=== PATIENT | male | born 1970 | race Caucasian/White ===

== ENCOUNTER 2025-01-14 07:13 | Observation (INO) | payer OTHER, SELFPAY ==
[2025-01-14] VITALS (19 sets, daily range): BP systolic 125–167; BP diastolic 78–110; PULSE 90–146; RESP 13–30; TEMP 36.8–37.2; O2SAT 89–98; BMI 29.5
--- NOTE | 2025-01-14 07:17 | ECG_ITS ---
APPROVED REPORT Exam: Resting ECG HR:108 bpm ECG Measurements Heart Rate 108 AXES WA 161 P 64 QRSd 105 QRS 13 QT 342 T 269 QTc 405 Conclusion SINUS TACHYCARDIA Normal axis, normal intervals, no noted ST elevation, LVH pattern noted in septal leads. Electronically signed by : Stoney Robbins, 01/14/2025 14:11:35
--- NOTE | 2025-01-14 07:20 | PC.NURSE ---
Dr Robbins at bedside
--- NOTE | 2025-01-14 07:20 | XR_ITS ---
PROCEDURE INFORMATION: Exam: XR Chest Exam date and time: 01/14/2025 7:23 AM Age: 54 years old Clinical indication: Pain; Shortness of breath; Other: Cp; Additional info: Cp--pleuritic description TECHNIQUE: Imaging protocol: Radiologic exam of the chest. Views: 2 views. COMPARISON: No relevant prior studies available. FINDINGS: Lungs: Unremarkable. No consolidation. Pleural spaces: Unremarkable. No pleural effusion. No pneumothorax. Heart/Mediastinum: Unremarkable. No cardiomegaly. Bones/joints: Unremarkable. IMPRESSION: No acute findings.
--- NOTE | 2025-01-14 07:25 | ED_ITS ---
Discharge Plan Disposition Patient Disposition: Admitted Condition: Fair Clinical Impressions Clinical Impression: Chest pain, ETOH abuse, Hyponatremia, Hypomagnesemia, Cirrhosis, Emphysema lung, Tracheal nodule, Pleural effusion, Heart failure Discharge ED Provider: Stoney Robbins [facility] General Chief Complaint: Chest Pain Stated Complaint: chest pain/shakes Time Seen by Provider: 01/14/25 07:19 History of Present Illness HPI narrative: 54-year-old male who denies significant past medical history, presents via EMS from home for chest pain that started at 3 AM this morning. Patient describes the pain as being a burning across his chest whenever he takes a deep breath. Has had a cough recently. Pain does not radiate into his back. Pain is described as less than a 5 out of 10. EMS twelve-lead without ST elevation, patient was given 324 aspirin, 0.4 nitro. Patient continues to have chest pain on deep inspiration however pain not present whenever not taking deep breaths. Patient further states he is also had some swelling in both of his legs for the last few weeks which is described as symmetrical. Does not take any medications. Patient also drinks 12-24 beers daily. Last drink approximately 13 hours ago. Patient tremulous and tachycardic on arrival. Please note that above description of symptoms, in this electronic medical record under categorization of recalled from ER triage doctor by RN are reflective of an initial nursing assessment, however, is not reflective of my full history and physical exam that was personally taken and clarified. Consequentially, this preceding description of symptoms, which may include the patient's categorized chief complaint in the EMR, do not reflect my personal clinical impression, and the ultimate description of history of present illness and patient stated complaints should be deferred to this section of the note. Unless stated otherwise or congruent with this section of the note, additional signs, symptoms, or incongruence should be interpreted as inaccurate with my clinical impression. Related Data Home Medications ?Medication ?Instructions ?Recorded ?Confirmed No Known Home Medications 01/14/25 01/14/25 Allergies Allergy/AdvReac Type Severity Reaction Status Date / Time No Known Allergies Allergy Verified 01/14/25 07:30 [facility] Disclaimer: The information contained in this section may have been updated after the patient was seen, as this information can be updated by other users. Social History Smoking Status: Current every day smoker alcohol intake: current current occupational status: other Travel in the last 8 weeks?: None ROS Obtained: Yes Systems reviewed as appropriate & no additional complaints except as documented Physical Exam General General appearance: alert and in no apparent distress Comment: Nontoxic-appearing Head Head exam: atraumatic, normocephalic and normal inspection Eye Eye exam: Present normal appearance, PERRL and EOMI ENT ENT exam: Present normal exam, normal oropharynx, mucous membranes moist and normal external ear exam Neck Neck exam: Present normal inspection, full ROM and trachea midline Chest Chest inspection: Present normal inspection and symmetric chest wall rise; Absent tenderness Respiratory Respiratory exam: Present normal lung sounds bilaterally; Absent respiratory distress, stridor or accessory muscle use Cardiovascular Cardiovascular exam: Present normal rhythm, tachycardia and normal heart sounds; Absent JVD Abdominal Exam Abdominal exam: Present soft and normal bowel sounds; Absent distention, tenderness, guarding, rebound or rigidity Extremities Exam Extremities exam: Present normal inspection, full ROM, normal capillary refill and edema (Mild pitting edema bilaterally distal anterior reis); Absent calf tenderness Back Exam Back exam: Present normal inspection; Absent tenderness Neurological Exam Neurological exam: Present alert, oriented X3 and other (Tremulous on extension of bilateral arms) Psychiatric Psychiatric exam: Present normal affect and normal mood Skin Skin exam: Present warm, dry, intact and normal color Lymphatic Lymphatic Findings: no adenopathy HEART Score HEART Score HEART Score assessment performed?: Yes History (anamnesis): Slightly suspicious ECG: Non-specific disturbance Age: 45-65 years Risk factors: 1-2 risk factors Troponin: 1-3x normal limit HEART Score: 4 Critical Care Critical Care Time Critical Care Time: Yes Attestation: On 01/14/25, the high probability of a clinically significant, sudden or life threatening deterioration of the following system(s) required my full and direct attention, intervention and personal management. The time I documented below is in addition to time spent performing reported procedures but includes the following listed in this critical care notation. Total Time Total Critical Care Time: 35 Medical Decision Making Medical Records Medical records reviewed: Yes I reviewed the patient's medical records. Jonas Inquiry Pt receiving controlled substance: No Jonas was queried for this patient: No Vital Signs Vital Signs: 01/14/25 07:30 01/14/25 07:30 01/14/25 08:00 Temperature 98.2 F Temperature Source Oral Pulse Rate 107 H 104 H Pulse Rate [Left Radial] 105 H Respiratory Rate 20 13 17 Blood Pressure 160/104 H 146/99 H Blood Pressure [Right Arm] 167/110 H Blood Pressure Mean [Right Arm] 129 02 Sat by Pulse Oximetry 90 L 95 95 Oxygen Delivery Method Room Air Nasal Cannula Nasal Cannula Oxygen Flow Rate (LPM) 2 2 01/14/25 08:30 01/14/25 09:00 01/14/25 09:30 Temperature Temperature Source Pulse Rate 101 H 104 H 109 H Pulse Rate [Left Radial] Respiratory Rate 14 21 21 Blood Pressure 148/107 H 140/101 H 159/98 H Blood Pressure [Right Arm] Blood Pressure Mean [Right Arm] 02 Sat by Pulse Oximetry 95 96 95 Oxygen Delivery Method Nasal Cannula Nasal Cannula Nasal Cannula Oxygen Flow Rate (LPM) 2 2 2 01/14/25 10:00 01/14/25 10:05 01/14/25 10:30 Temperature Temperature Source Pulse Rate 108 H 102 H 104 H Pulse Rate [Left Radial] Respiratory Rate 14 17 Blood Pressure 145/98 H 151/95 H Blood Pressure [Right Arm] Blood Pressure Mean [Right Arm] 02 Sat by Pulse Oximetry 97 96 Oxygen Delivery Method Nasal Cannula Nasal Cannula Oxygen Flow Rate (LPM) 2 2 01/14/25 11:00 01/14/25 11:30 Temperature Temperature Source Pulse Rate 103 H 105 H Pulse Rate [Left Radial] Respiratory Rate 30 H 18 Blood Pressure 153/105 H 154/109 H Blood Pressure [Right Arm] Blood Pressure Mean [Right Arm] 02 Sat by Pulse Oximetry 96 95 Oxygen Delivery Method Nasal Cannula Nasal Cannula Oxygen Flow Rate (LPM) 2 2 Lab Data Labs: Lab Results 01/14/25 07:19: WBC 10.6, RBC 4.82, Hgb 16.5, Hct 45.0, MCV 93.4, MCH 34.2 H, M CHC 36.7 H, RDW 12.1, Plt Count 162, MPV 10.9 H, Neut % (Auto) 80.6 H, Lymph % (Auto) 9.7 L, Lyman % (Auto) 8.3, Eos % (Auto) 0.5, Baso % (Auto) 0.4, Neut # (Auto) 8.5 H, Lymph # (Auto) 1.0, Lyman # (Auto) 0.9, Eos # (Auto) 0.1, Baso # (Auto) 0.0, Sodium 119 L, Potassium 4.9, Chloride 90 L, Carbon Dioxide 26, Anion Gap 7.9, BUN 3 L, Creatinine 0.50 L, Estimated Creat Clear 222, Estimated GFR 175, Est GFR ( Amer) 211, Glucose 130 H, Calcium 8.5, Magnesium 1.3 L, T otal Bilirubin 2.4 H, AST 61 H, ALT 48, Alkaline Phosphatase 66, Troponin I 0.07 H, NT-Pro-B Natriuret Pep 3300 H, Total Protein 6.4, Albumin 3.7, Globulin 2.7, Albumin/Globulin Ratio 1.4 01/14/25 07:20: D-Dimer 2.97 H 01/14/25 09:29: Urine Color Yellow, Urine Appearance Clear, Urine pH 6.5, Ur Specific Free Soil <= 1.005, Urine Protein 1+ A, Urine Glucose (UA) Negative, Urine Ketones Negative, Urine Blood Negative, Urine Nitrate Negative, Urine Bilirubin Negative, Urine Urobilinogen 0.2, Ur Leukocyte Esterase Negative, Urine RBC None, Urine WBC Occasional, Ur Squamous Epith Cells Occasional, Urine Bacteria None 01/14/25 10:17: Troponin I 0.07 H 01/14/25 07:19 01/14/25 07:19 Response Orders (Tests/Meds): ED MEDICATIONS Generic Name Dose Route Start Last Admin Trade Name Freq PRN Reason Stop Dose Admin Diazepam 10 mg 01/14/25 07:19 Diazepam 10mg/2ml Syringe IV 02/13/25 07:18 Q1HP PRN CIWA >16 Diazepam 5 mg 01/14/25 07:19 01/14/25 12:07 Diazepam 10mg/2ml Syringe IV 02/13/25 07:18 5 mg Q1HP PRN Administration CIWA Score 8-15 Diazepam 5 mg 01/14/25 07:19 Diazepam 5mg Tablet PO 02/13/25 07:18 Q6HP PRN CIWA 2-7 Folic Acid 1 mg 01/14/25 09:00 01/14/25 07:59 Folic Acid 1mg Tablet PO 02/13/25 08:59 Not Given DAILY ANTONIO Multivitamins 10 ml/ Thiamine 1,015 mls @ 150 mls/hr 01/14/25 07:45 01/14/25 07:52 HCl 100 mg/ Magnesium Sulfate IV 01/14/25 14:30 150 mls/hr 2 gm/ Lactated Ringer's .[id number] ANTONIO Administration Multivitamins 1 each 01/14/25 17:00 Multivitamin Tablet PO 02/13/25 16:59 1700 ANTONIO Thiamine HCl 100 mg 01/15/25 09:00 Thiamine 100mg Tablet PO 01/17/25 09:01 DAILY ANTONIO Discontinued Medications Generic Name Dose Route Start Last Admin Trade Name Freq PRN Reason Stop Dose Admin Furosemide 80 mg 01/14/25 12:10 01/14/25 12:14 Furosemide 40mg/4ml Vial IV 01/14/25 12:11 80 mg ONCE ONE Administration Thiamine HCl 100 mg/ Sodium 51 mls @ 204 mls/hr 01/14/25 12:15 Chloride IV 01/14/25 12:16 ONCE ONE Iopamidol 70 ml 01/14/25 09:29 01/14/25 09:31 Iopamidol-370 (76%);100ml Bottle IV 01/14/25 09:30 70 ml ONCE ONE Administration Nicotine 21 mg 01/14/25 08:29 01/14/25 08:40 Nicotine 21mg/24hr Patch TD 01/14/25 08:30 21 mg ONCE ONE Administration Phenobarbital Sodium 130 mg 01/14/25 12:13 Phenobarbital Sod 65mg/Ml Inj IV 01/14/25 12:14 ONCE ONE Sodium Chloride 10 ml 01/14/25 09:29 01/14/25 09:31 Sodium Chloride 0.9% 10ml Syr (Rad Only) IV 01/14/25 09:30 10 ml ONCE ONE Administration Sodium Chloride 50 ml 01/14/25 09:29 01/14/25 09:30 0.9 % Sodium Chloride 50 Ml Vial IV 01/14/25 09:30 50 ml ONCE ONE Administration ORDERS Category Date Time Status CTA Chest [CT angio chest PE protocol] Stat Cat Scan 01/14/25 08:58 Completed Consult [employer] [CONS] Routine Cons 01/14/25 12:08 Active XR chest 2V Stat Exams 01/14/25 07:20 Completed Activated Partial Thrombo Time Routine Lab 01/14/25 12:13 Ordered Complete Blood Count Auto Diff AMLAB Lab 01/15/25 06:00 Ordered Complete Blood Count Auto Diff Stat Lab 01/14/25 07:19 Completed Comprehensive Metabolic Panel AMLAB Lab 01/15/25 06:00 Ordered Comprehensive Metabolic Panel Stat Lab 01/14/25 07:19 Completed D-Dimer Stat Lab 01/14/25 07:20 Completed Drug Screen,Urine Routine Lab 01/14/25 12:13 Ordered Magnesium AMLAB Lab 01/15/25 06:00 Ordered Magnesium Routine Lab 01/14/25 07:19 Completed NT Pro Brain Natriuretic Pep. Stat Lab 01/14/25 07:19 Completed Phosphorous Routine Lab 01/14/25 12:13 Ordered Prothrombin Time INR Routine Lab 01/14/25 12:13 Ordered Troponin I Q3H Lab 01/14/25 10:17 Completed Troponin I Q3H Lab 01/14/25 13:30 Ordered Troponin I Stat Lab 01/14/25 07:19 Completed UA [Urinalysis and Microscopic] Stat Lab 01/14/25 09:29 Completed ECG Data Tracing #1: Attestation: I reviewed this ECG and interpreted as documented below: ECG Narrative: Sinus tachycardia, normal axis, normal intervals, no noted ST elevation, LVH pattern noted in septal leads. ECG compared to prior tracings: there are no prior tracings available for comparison MDM Narrative Medical Decision Narrative: Patient with history and exam per above presenting for evaluation of chest pain, through discussion pain occurs whenever patient takes deep inspiration feels like a burning across his chest. Does not go into his back. Arrives tachycardic, tremulous, afebrile. Oxygen saturation low 90s on arrival. Physical exam as above. Patient drinks 12-24 beers daily with last drink approximately 13 hours prior to arrival. Diagnoses considered include ACS, pleuritis, upper respiratory virus, pneumonia, alcohol withdrawal, electrolyte abnormality, among others ED workup and treatment included: As above. EKG as above, sinus tachycardia without findings of ischemia. Labs were independently interpreted by me, significant for no noted leukocytosis anemia or thrombocytopenia. Patient is hyponatremic with sodium level 119, suspect this to be due to beer potomania given patient's consumption of 12-24 beers daily. Patient does not remember a significant period of sobriety, banana bag will help with sodium levels. Patient is hypochloremic, potassium within normal limits. Hyperbilirubinemia noted with bilirubin 2.4. Hypomagnesemia, will be repleted with banana bag. Mild elevation of AST, ALT and alkaline phosphatase within normal limits. proBNP elevated at 3300, no prior records available for baseline estimation. Initial troponin 0.07, repeat pending. D- dimer 2.97 CTA PE protocol ordered to evaluate for potential pulmonary embolism. Repeat troponin with flat delta, Reassuring against ACS. Imaging was independently visualized and interpreted by me, significant for no acute cardiopulmonary process noted on chest x-ray. CTA PE protocol with no noted pulmonary embolism, no noted aneurysm or dissection on my review, patient has emphysematous changes, pathologic node anterior to trachea, perihilar adenopathy, small bilateral pleural effusions, findings of cirrhosis on liver, gallstones noted in gallbladder. Please refer to radiology report for full details. My clinical impression at this time is most consistent with acute EtOH withdrawal, heart failure, elevated BNP, hyponatremia secondary to beer potomania, hypomagnesemia, new diagnosis of liver cirrhosis, emphysema, pulmonary nodule, pleural effusion, cholelithiasis. Patient was given benzodiazepine per [facility] protocol with improvement in tremors. Required a repeat dose. Patient initially very hesitant to be admitted to hospital and was wanting to sign out AGAINST MEDICAL ADVICE however after further discussion with patient and his family patient agreeable to admission. Informed patient of all labs and radiographic findings. Impressed the importance of follow-up regarding nodule as well as other findings today. Discussed patient with Dr. Mcrae with hospital medicine who agreed with admission. Patient admitted to hospital medicine with hemodynamically stable condition. Please see service notes for further details and management I discussed my clinical impression with patient and answered all questions. At this time, the evidence for any other entities in the differential is insufficient to warrant any further testing or ED observation. This was explained to the patient. The patient was advised that persistent or worsening symptoms require further evaluation.
[2025-01-14 07:34] LABS: Basophils % 0.4 % (0.1-2.0); Eosinophils # 0.1 Kmm3 (0.0-0.4); Eosinophils % 0.5 % (0.1-12.0); Hemoglobin 16.5 g/dL (14.1-18.0); Lymphocytes % 9.7 % (10-50); Mean Corpuscular HGB Conc 36.7 g/dL (31.8-35.4); Mean Corpuscular Hemoglobin 34.2 pg (27.0-31.2); Mean Corpuscular Volume 93.4 fl (80-94); Mean Platelet Volume 10.9 fl (7.4-10.4); Monocytes # 0.9 K/mm3 (0.1-1.0); Monocytes % 8.3 % (1.7-9.3); Neutrophils # 8.5 K/mm3 (1.8-7.8); Neutrophils % 80.6 % (37.0-80.0); Nucleated Red Blood Cells # 0 10^3/uL; Nucleated Red Blood Cells % 0 %; Platelet Count 162 K/mm3 (142-424); Red Blood Count 4.82 M/mm3 (4.60-6.20); Red Cell Distribution Width 12.1 % (11.5-17.5); Red Cell Distribution Width-SD 42.2 fL; White Blood Count 10.6 K/mm3 (4.8-10.8)
--- NOTE | 2025-01-14 07:40 | PC.NURSE ---
pt's daughter and at bedside
[2025-01-14] MEDS: diazePAM 10MG/2ML SYRINGE 5 MG IV ×2 (07:43→12:07)
[2025-01-14] MEDS: MVI, ADULT NO.1 WITH VIT K 10 ML, THIAMINE HCL 100 MG, MAGNESIUM SULFATE 2 GM in LACTAT... 150 ML IV (07:52)
[2025-01-14] MEDS: FOLIC ACID 1MG TABLET 1 MG PO (07:58)
[2025-01-14 08:03] LABS: Albumin Level 3.7 g/dl (3.5-5.0); Chloride 90 mmol/L (98-107); Potassium 4.9 mmoL/L (3.5-5.1); Sodium 119 mmol/L (136-145)
[2025-01-14 08:06] LABS: Alanine Aminotransferase 48 U/L (12-78); Albumin/Globulin Ratio 1.4 (1.1-1.8); Alkaline Phosphatase 66 U/L (38-126); Anion Gap 7.9 mEq/L (5-15); Aspartate Amino Transferase 61 U/L (17-59); Bilirubin,Total 2.4 mg/dl (0.2-1.3); Blood Urea Nitrogen 3 mg/dl (9-20); Calcium 8.5 mg/dl (8.4-10.2); Carbon Dioxide 26 mmol/L (22.0-30.0); Creatinine Clearance Estimated 222 mL/min (50-200); Estimated Glomerular Filt Rate 175 ml/min (>60); GFR (African American) 211 ML/MIN (>60); Globulin 2.7 g/dL (1.3-3.2); Glucose 130 mg/dl (74-100); Total Protein,Serum 6.4 g/dl (6.3-8.2)
[2025-01-14 08:16] LABS: NT Pro Brain Natriuretic Pep. 3300 pg/mL (0-125)
[2025-01-14 08:18] LABS: Troponin I 0.07 ng/ml (0.00-0.034)
[2025-01-14 08:28] LABS: Magnesium 1.3 mg/dl (1.6-2.3)
[2025-01-14 08:31] LABS: D-Dimer 2.97 ug/mL (0.0-0.5)
[2025-01-14] MEDS: NICOTINE 21MG/24HR PATCH 21 MG TD (08:40)
--- NOTE | 2025-01-14 08:58 | CT_ITS ---
PROCEDURE INFORMATION: Exam: CTA Chest With Contrast Exam date and time: 01/14/2025 9:19 AM Age: 54 years old Clinical indication: Pain; Other: Cp, elevated d-dimer TECHNIQUE: Imaging protocol: Computed tomographic angiography of the chest with contrast. Exam focused on the arteries. 3D rendering (Not supervised by radiologist): MIP and/or 3D reconstructed images were created by the technologist. Radiation optimization: All CT scans at this facility use at least one of these dose optimization techniques: automated exposure control; mA and/or kV adjustment per patient size (includes targeted exams where dose is matched to clinical indication); or iterative reconstruction. Contrast material: ISOVUE; Contrast volume: 70 ml; Contrast route: INTRAVENOUS (IV); COMPARISON: CR XR CHEST 2V 01/14/2025 7:23 AM FINDINGS: Pulmonary arteries: No evidence of pulmonary embolus to the segmental level. Aorta: No aneurysm of the aorta. No dissection of the aorta. Lungs: Paraseptal emphysematous changes. Calcified granuloma in the left lower lobe Pleural spaces: Small bilateral pleural effusions. Heart: Unremarkable. No cardiomegaly. No pericardial effusion. Coronary arteries: Coronary artery calcifications may indicate coronary artery disease. Lymph nodes: Pathologic node anterior to the trachea 2.8 x 1.8 cm series 5, image 44. Subcarinal adenopathy 4.5 x 1.8 cm. Mild Jennifer hilar adenopathy. Liver: Lobulated liver consistent with cirrhosis. Gallbladder and biliary ducts: Gallstones in the gallbladder . Bones/joints: Unremarkable. No acute fracture. Soft tissues: Unremarkable. IMPRESSION: 1. No evidence of pulmonary embolus to the segmental level. 2. No aneurysm of the aorta. 3. No dissection of the aorta. 4. Pathologic node anterior to the trachea 2.8 x 1.8 cm series 5, image 44. Subcarinal adenopathy 4.5 x 1.8 cm. Mild Jennifer hilar adenopathy. 5. Small bilateral pleural effusions. 6. Lobulated liver consistent with cirrhosis. 7. Gallstones in the gallbladder . COMMENTS: The presence of pulmonary emphysema on CT is an independent risk factor for lung cancer. In the absence of a history or active diagnosis of lung cancer, it is recommended that this patient with emphysema be evaluated for enrollment in a low dose CT lung cancer screening program.
--- NOTE | 2025-01-14 09:16 | PC.NURSE ---
pt going for CT via wheelchair at this time
[2025-01-14] MEDS: 0.9 % SODIUM CHLORIDE 50 ML VIAL IV (09:30)
[2025-01-14] MEDS: SODIUM CHLORIDE 0.9% 10ML SYR (RAD ONLY) 10 ML IV (09:31)
[2025-01-14] MEDS: IOPAMIDOL-370 (76%);100ML BOTTLE 70 ML IV (09:31)
[2025-01-14 09:35] LABS: Microscopic, Urine URINE MICROSCOPIC (MICROSCOPIC)
[2025-01-14 09:44] LABS: Appearance,Urine CLEAR (Clear); Bilirubin,Urine Negative (Negative); Blood, Urine Negative (Negative); Color,Urine YELLOW (Yellow); Glucose,Urine (UA) Negative (Negative); Ketones,Urine Negative (Negative); Leukocyte Esterase,Urine Negative (Negative); Nitrate,Urine Negative (Negative); PH,Urine 6.5 (5.0-8.5); Protein,Urine 1+ (Negative); Specific Gravity, Urine <= 1.005 (1.005-1.030); Urobilinogen,Urine 0.2 EU/dl (0.2)
[2025-01-14 09:50] LABS: Squamous Epithelial Cell,Urine Occasional #/hpf (0-5); WBC,Urine Occasional #/hpf (0-3)
[2025-01-14 10:51] LABS: Troponin I 0.07 ng/ml (0.00-0.034)
--- NOTE | 2025-01-14 11:45 | PC.NURSE ---
Dr Robbins is at bedside at this time
--- NOTE | 2025-01-14 11:59 | PC.NURSE ---
As I was discussing with pt and his family his wishes to sign out AMA, he decided to stay. I placed pt back on montioring devices and let Dr Robbins know pf pt's wishes. His CIWA score is now 11 and medications given per MAR.
--- NOTE | 2025-01-14 12:11 | PC.NURSE ---
Dr Robbins is s/w Dr Mcrae for admission
[2025-01-14] MEDS: FUROSEMIDE 40MG/4ML VIAL 80 MG IV (12:14)
--- NOTE | 2025-01-14 12:14 | PC.NURSE ---
Called [facility] for admission. States pt will go to room 217 Step-down
--- NOTE | 2025-01-14 12:17 | EXP.HP ---
History of Present Illness *Admission Date: 01/14/25 *Reason for visit:: Alcohol withdrawal, short of breath *History of present illness: Mr. Almendarez is a 54-year-old male who denies significant past medical history. He presented to the ER via EMS due to complaint of some chest discomfort and worsening shortness of breath. Pain began this morning at about 3 AM. States that it is burning across his chest whenever he takes a deep breath. Has had a cough for several days. Denies referred pain into his neck or arm or back. EKG prior to arrival with no ST elevations. During his workup in the ER, patient has tremor and continues to complain of chest discomfort. Stable on room air. No nausea or vomiting. Denies any diarrhea. States he eats 1 meal a day. Also reports drinking 12-24 beers a day. Buys a case of beer daily. Last drink 13 hours prior to arrival to the ER. Tremulous and tachycardic. Workup in the ER with significant abnormalities found. Sodium of 119, effusions on chest imaging, edema in lower extremities, BNP elevated consistent with CHF. Also found to have cirrhosis and emphysema on imaging. Patient interested in staying for help with his alcoholism and multiple comorbidities. Does not go to the doctor and has not been to the doctor in over a decade. Smokes 1 to 2 packs a day. Medicine consulted for admission and further management. On arrival to the floor, patient is accompanied by his and daughter. He is afebrile. Appears in mild to moderate distress. Alert and oriented however unable to give history. [facility] Disclaimer: The information contained in this section may have been updated after the patient was seen, as this information can be updated by other users. Surgical History History of hand surgery Social History Smoking Status: Current every day smoker alcohol intake: current current occupational status: other Travel in the last 8 weeks?: None Have you lived/traveled outside US in past 30 days?: No Contact w/someone who lives/traveled outside US past 30 days?: No Exposure to someone with infectious disease in past 14 days?: No Do you have a fever (greater than 100.4 F or 38 C)?: No Have you tested positive for COVID-19?: No Exposed to someone with COVID-19 in past 14 days?: No Do you have a sore throat?: No Do you have a cough?: No Do you have any weakness?: No Do you have any diarrhea?: No Are you experiencing any unusual bleeding?: No Do you have any muscle aches/pain?: No Do you have any abdominal pain?: No Are you experiencing loss of taste or smell?: No Review of Systems Review of Systems Review of systems (narrative): 14 point review of systems performed, pertinent positives and negatives as per HPI Meds Home Medications and Allergies Home Medications ?Medication ?Instructions ?Recorded ?Confirmed ?Type No Known Home Medications 01/14/25 01/14/25 History New Prescriptions to Start Prescriptions: Allergies Allergy/AdvReac Type Severity Reaction Status Date / Time No Known Allergies Allergy Verified 01/14/25 07:30 Exam Data for Last 24 hours Vital signs and Labs for Last 24 Hours: Temp Pulse Resp BP Pulse Ox O2 Del Method O2 Flow Rate 98.2 F 105 H 18 154/109 H 95 Nasal Cannula 2 01/14/25 07:30 01/14/25 11:30 01/14/25 11:30 01/14/25 11:30 01/14/25 11:30 01/14/25 11:30 01/14/25 11:30 Laboratory Results - last 24 hr 01/14/25 07:19: WBC 10.6, RBC 4.82, Hgb 16.5, Hct 45.0, MCV 93.4, MCH 34.2 H, MCHC 36.7 H, RDW 12.1, Plt Count 162, MPV 10.9 H, Neut % (Auto) 80.6 H, Lymph % (Auto) 9.7 L, [place] % (Auto) 8.3, Eos % (Auto) 0.5, Baso % (Auto) 0.4, Neut # (Auto) 8.5 H, Lymph # (Auto) 1.0, [place] # (Auto) 0.9, Eos # (Auto) 0.1, Baso # (Auto) 0.0, Sodium 119 L, Potassium 4.9, Chloride 90 L, Carbon Dioxide 26, Anion Gap 7.9, BUN 3 L, Creatinine 0.50 L, Estimated Creat Clear 222, Estimated GFR 175, Est GFR ( Amer) 211, Glucose 130 H, Calcium 8.5, Magnesium 1.3 L, Total Bilirubin 2.4 H, AST 61 H, ALT 48, Alkaline Phosphatase 66, Troponin I 0.07 H, NT-Pro-B Natriuret Pep 3300 H, Total Protein 6.4, Albumin 3.7, Globulin 2.7, Albumin/Globulin Ratio 1.4 01/14/25 07:20: D-Dimer 2.97 H 01/14/25 09:29: Urine Color Yellow, Urine Appearance Clear, Urine pH 6.5, Ur Specific [place] <= 1.005, Urine Protein 1+ A, Urine Glucose (UA) Negative, Urine Ketones Negative, Urine Blood Negative, Urine Nitrate Negative, Urine Bilirubin Negative, Urine Urobilinogen 0.2, Ur Leukocyte Esterase Negative, Urine RBC None, Urine WBC Occasional, Ur Squamous Epith Cells Occasional, Urine Bacteria None 01/14/25 10:17: Troponin I 0.07 H I & O for Last 24 hours: Intake & Output 01/11/25 01/12/25 01/13/25 01/14/25 23:59 23:59 23:59 23:59 Weight 90.718 kg Constitutional Constitutional: moderate distress, average body habitus, chronically ill appearing and cooperative *Routine HEENT Exam Head: Present normocephalic Eye: Present EOMI and PERRL ENT: Present mucous membranes moist *Routine Neck Exam Neck: Present supple; Absent lymphadenopathy *Routine Respiratory Exam Respiratory: Present prolonged expiratory phase, rhonchi and wheezes; Absent crackles *Routine Cardiovascular Exam Cardiovascular: Present RRR *Routine Abdominal Exam Abdominal: Present soft, normoactive bowel sounds and distended; Absent tenderness *Routine Rectal Exam Rectal:: deferred *Routine Genitalia Exam Genitalia:: deferred *Routine Extremities Exam Extremities: Present edema (2+ to thigh); Absent cyanosis or clubbing *Routine Skin Exam Skin: Present intact and warm; Absent rash *Routine Neurological Exam Neurological: Present alert, oriented X3, moving all extremities and tremors; Absent altered mental status Assessment and Plan *Assessment and plan (1) Alcohol withdrawal: Status: Acute Category: Medical Code(s): F10.939 - Alcohol use, unspecified with withdrawal, unspecified (2) Acute CHF: Status: Acute Category: Medical Code(s): I50.9 - Heart failure, unspecified (3) ETOH abuse: Status: Acute Category: Social Hx Code(s): F10.10 - Alcohol abuse, uncomplicated (4) Pleural effusion: Status: Acute Category: Medical Code(s): J90 - Pleural effusion, not elsewhere classified (5) Tracheal nodule: Status: Acute Category: Medical Code(s): J39.8 - Other specified diseases of upper respiratory tract (6) Emphysema lung: Status: Acute Category: Medical Code(s): J43.9 - Emphysema, unspecified (7) Cirrhosis: Status: Acute Category: Medical Code(s): K74.60 - Unspecified cirrhosis of liver (8) Hypomagnesemia: Status: Acute Category: Medical Code(s): E83.42 - Hypomagnesemia (9) Hyponatremia: Status: Acute Category: Medical Code(s): E87.1 - Hypo-osmolality and hyponatremia Plan 54-year-old male who presented with chest discomfort and shortness of breath. Found to have new diagnosis of CHF, pleural effusions, volume overload, emphysema, lung nodules, and active alcohol withdrawal. Discussed case with ER physician, request admission for management and further workup of his significant abnormalities as well as his alcohol withdrawal. I agreed to admit for further care. Admitted to stepdown level of care for close monitoring on telemetry. Initiate CIWA protocol. Problems addressed as follows: Alcohol abuse disorder Alcohol withdrawal -At risk for severe withdrawal. Started on CIWA protocol with Valium. - Administered 130 mg phenobarbital IV once. Will continue 65 mg twice daily. - Initiate thiamine IV once with continuation of multivitamin, thiamine, folate daily - email production specialist consulted to assist with management during inpatient as well as outpatient referral for rehab - No signs of infection, white count 10.6, hemoglobin 16.5, platelets 162. Hyponatremia: Secondary to beer Potomania. Monitor for improvement with diuresis. Anticipate resolution with normal dietary replacement, and avoidance of beer. Sodium 119 on admission. Repeat ordered for 5 PM. Correct between 8 to 10 mEq a day - Chloride 90, magnesium 1.3, electrolyte replacement protocol ordered for assistance with replacement. Phosphorus 4.0. Monitor electrolytes daily with CBC, CMP, magnesium and phosphorus ordered for the Cirrhosis, suspected secondary to alcoholic - CT abdomen pelvis with finding of cirrhosis. This is a new diagnosis. GI consulted to assist with management. New diagnosis of CHF - elevated BNP of 3300, mild elevation in troponin at 0.07-0.08. No delta on serial levels. Suspect NSTEMI due to alcoholism and withdrawal - Cardiology consulted to assist with management and further workup - Echocardiogram ordered for the more morning - Initiate metoprolol tartrate 12.5 mg twice daily for tachycardia - Lasix 80 mg IV once due to volume overload, continue Lasix 80 mg IV daily. Initiate spironolactone 25 mg daily for hypokalemia and volume management Pulmonary nodules Emphysema - CT chest with 2 suspicious lung nodules. Emphysema found. Will initiate DuoNebs every 6 hours as needed - Pulmonology consulted for assistance. Does not appear to be in exacerbation at this time Tobacco use disorder: Smokes 2 packs a day. Initiated on 1 patch daily. Will consider increasing to 2 patches pending symptoms Full code Lovenox 40 mg subcu Regular diet
--- NOTE | 2025-01-14 12:19 | PC.NURSE ---
pt is back from CT at this time
--- NOTE | 2025-01-14 12:26 | PC.NURSE ---
called report to mauri iqbal
[2025-01-14] MEDS: THIAMINE HCL 100 MG in 0.9 % SODIUM CHLORIDE 50 ML 204 MG IV (13:36)
[2025-01-14] MEDS: PHENobarbital SOD 65MG/ML INJ 130 MG IV (13:37)
--- NOTE | 2025-01-14 13:43 | PC.NURSE ---
DR MINER AT BEDSIDE
[2025-01-14 14:10] LABS: Barbiturates Screen,Urine Negative ng/ml (<200)
--- NOTE | 2025-01-14 14:10 | PC.NURSE ---
ROUNDED ON PT, NO NEEDS AT THIS TIME. CALL LIGHT AND URINAL WITHIN REACH.
[2025-01-14 14:11] LABS: Amphetamine/Metha Screen,Urine Negative ng/ml (<1000); Benzodiazepines Screen,Urine Negative ng/ml (<200)
[2025-01-14 14:12] LABS: Cannabinoid Screen,Urine Negative ng/ml (<50)
[2025-01-14 14:13] LABS: Cocaine Screen,Urine Negative ng/ml (<300); Methadone Screen,Urine Negative ng/ml (<300)
[2025-01-14 14:14] LABS: Opiate Screen,Urine Negative ng/ml (<300); Phencyclidine Screen,Urine Negative ng/ml (<25)
[2025-01-14 14:47] LABS: Troponin I 0.08 ng/ml (0.00-0.034)
[2025-01-14 16:12] LABS: Activated Partial Thrombo Time 29.1 seconds (22.8-30.6); Prothrombin Time 12.2 seconds (10.1-12.5)
--- NOTE | 2025-01-14 16:41 | PC.NURSE ---
PT HAS RESTED COMFORTABLY, CIWA CURRENTLY 7. PT ALERT AND ORIENTED, DOES NOT FEEL ANXIOUS. VOIDING PER URINAL. REPORTS OCCASIONAL CHEST PRESSURE WITH INSPIRATION, UNCHANGED SINCE ADMISSION TO ED. VITAL STABLE. PT AGREEABLE TO PLAN OF CARE. NO NEEDS AT THIS TIME. CALL LIGHT WITHIN REACH
[2025-01-14] MEDS: diazePAM 5MG TABLET 5 MG PO ×2 (16:50→21:27)
[2025-01-14 17:32] LABS: Chloride 89 mmol/L (98-107); Sodium 124 mmol/L (136-145)
[2025-01-14 17:33] LABS: Potassium 3.4 mmoL/L (3.5-5.1)
[2025-01-14 17:35] LABS: Blood Urea Nitrogen 6 mg/dl (9-20); Creatinine Clearance Estimated 222 mL/min (50-200); Estimated Glomerular Filt Rate 175 ml/min (>60); GFR (African American) 211 ML/MIN (>60)
[2025-01-14 17:36] LABS: Anion Gap 6.4 mEq/L (5-15); Calcium 8.5 mg/dl (8.4-10.2); Carbon Dioxide 32 mmol/L (22.0-30.0); Glucose 154 mg/dl (74-100)
[2025-01-14] MEDS: ENOXAPARIN 40MG/0.4ML SYRINGE 40 MG SUBCUT (17:48)
[2025-01-14] MEDS: POTASSIUM CHLORIDE 20MEQ TAB 40 MEQ PO (18:21)
--- NOTE | 2025-01-14 20:15 | PC.NURSE ---
Pt noted to be tachycardic with HR 140-160. EKG performed. Unable to get accurate read after multiple different electrode placement and pt laying still. Lopressor 2.5mg administered and pt converted back to NSR before accurate EKG could be obtained. notified.
[2025-01-14] MEDS: METOPROLOL TARTRATE 5MG/5ML VIAL 2.5 MG IV (20:20)
[2025-01-14] MEDS: METOPROLOL TARTRATE 25MG TABLET 12.5 MG PO (21:26)
[2025-01-14] MEDS: IPRATROPIUM/ALBUTEROL 3 ML NEB IH (21:29)
[2025-01-14] MEDS: PHENobarbital SOD 65MG/ML INJ 65 MG IV (21:30)
[2025-01-15] VITALS (31 sets, daily range): BP systolic 92–144; BP diastolic 67–97; PULSE 78–140; RESP 16–20; TEMP 36.4–36.6; O2SAT 90–99; BMI 26.8
[2025-01-15] MEDS: diazePAM 10MG/2ML SYRINGE 5 MG IV (00:08)
--- NOTE | 2025-01-15 03:10 | PC.NURSE ---
Pt noted to be in Afib RVR again. Delia Man noted. EKG obtained, results passed on to Delia Man. States to give 2.5mg Lopressor ONCE and give 2g Magnesium ONCE. While preparing medication in room, patiented noted to convert to NSR with HR in 90s. Delia Man notified-states to give Magnesium but hold Lopressor at this time.
--- NOTE | 2025-01-15 04:03 | ECG_ITS ---
APPROVED REPORT Exam: Resting ECG HR:127 bpm ECG Measurements Heart Rate 127 AXES QRSd 116 QRS -19 QT 334 T 251 QTc 409 Conclusion ATRIAL FIBRILLATION WITH RAPID VENTRICULAR RESPONSE INCOMPLETE RIGHT BUNDLE BRANCH BLOCK [90+ ms QRS DURATION, TERMINAL R IN V1/V2, 40+ ms S IN I/aVL/V4/V5/V6] ST DEVIATION AND MODERATE T-WAVE ABNORMALITY, CONSIDER LATERAL ISCHEMIA [-0.1+ mV T-WAVE IN I/aVL/V5/V6] ST DEVIATION AND MODERATE T-WAVE ABNORMALITY, CONSIDER INFERIOR ISCHEMIA [-0.1+ mV T-WAVE IN II/aVF] ABNORMAL ECG UNCONFIRMED REPORT Electronically signed by : Jcarlos Hill MD 01/16/2025 11:15:23
[2025-01-15] MEDS: MAGNESIUM SULFATE IN WATER 2 GM/50 ML PIGGYBACK IV (04:09)
[2025-01-15 06:11] LABS: Basophils % 0.6 % (0.1-2.0); Eosinophils # 0.1 Kmm3 (0.0-0.4); Hematocrit 45.8 % (42.0-52.0); Lymphocytes # 1.4 K/mm3 (0.7-4.5); Mean Corpuscular HGB Conc 34.9 g/dL (31.8-35.4); Mean Corpuscular Hemoglobin 33.8 pg (27.0-31.2); Mean Corpuscular Volume 96.8 fl (80-94); Mean Platelet Volume 11.4 fl (7.4-10.4); Monocytes # 0.7 K/mm3 (0.1-1.0); Monocytes % 10.4 % (1.7-9.3); Neutrophils # 4.8 K/mm3 (1.8-7.8); Neutrophils % 67.7 % (37.0-80.0); Nucleated Red Blood Cells # 0 10^3/uL; Nucleated Red Blood Cells % 0 %; Platelet Count 130 K/mm3 (142-424); Red Blood Count 4.73 M/mm3 (4.60-6.20); Red Cell Distribution Width 13.1 % (11.5-17.5); Red Cell Distribution Width-SD 46.5 fL
[2025-01-15 06:23] LABS: Albumin Level 3.3 g/dl (3.5-5.0); Chloride 91 mmol/L (98-107); Potassium 3.7 mmoL/L (3.5-5.1); Sodium 126 mmol/L (136-145)
[2025-01-15 06:25] LABS: Alanine Aminotransferase 35 U/L (12-78); Alkaline Phosphatase 71 U/L (38-126); Aspartate Amino Transferase 39 U/L (17-59); Bilirubin,Total 2.6 mg/dl (0.2-1.3); Blood Urea Nitrogen 9 mg/dl (9-20); Creatinine Clearance Estimated 167 mL/min (50-200); Estimated Glomerular Filt Rate 141 ml/min (>60); GFR (African American) 171 ML/MIN (>60)
[2025-01-15 06:26] LABS: Albumin/Globulin Ratio 1.1 (1.1-1.8); Anion Gap 3.7 mEq/L (5-15); Calcium 8.3 mg/dl (8.4-10.2); Carbon Dioxide 35 mmol/L (22.0-30.0); Glucose 121 mg/dl (74-100); Magnesium 2.2 mg/dl (1.6-2.3); Total Protein,Serum 6.3 g/dl (6.3-8.2)
[2025-01-15] MEDS: METOPROLOL TARTRATE 5MG/5ML VIAL 2.5 MG IV (06:36)
--- NOTE | 2025-01-15 06:45 | PC.NURSE ---
Addendum entered by Stephany Puente RN 01/15/25 07:09: Delia Man notified pt HR continues to be 120s, afib. Pt is asymptomatic. No new orders at this time. Original Note: Pt converted back into A fib RVR for 3rd time. Pt encouraged to vagal down with no response. Delia Man notified. States to give 2.5mg Lopressor IV ONCE. Read back, verified, and carried out.
[2025-01-15] MEDS: DEFINITY US ECHO CONTRAST 2ML INJ 2 MG IV (08:07)
[2025-01-15] MEDS: FOLIC ACID 1MG TABLET 1 MG PO (08:45)
[2025-01-15] MEDS: THIAMINE 100MG TABLET 100 MG PO (08:45)
[2025-01-15] MEDS: SPIRONOLACTONE 25MG TABLET 25 MG PO (08:46)
[2025-01-15] MEDS: diazePAM 5MG TABLET 5 MG PO ×2 (08:46→15:53)
[2025-01-15] MEDS: FUROSEMIDE 40MG/4ML VIAL 80 MG IV (08:46)
[2025-01-15] MEDS: METOPROLOL TARTRATE 25MG TABLET 25 MG PO (08:47)
[2025-01-15] MEDS: PHENobarbital SOD 65MG/ML INJ 65 MG IV ×2 (08:47→22:09)
[2025-01-15] MEDS: ENOXAPARIN 80MG/0.8ML SYRINGE 80 MG SUBCUT ×2 (09:34→22:09)
--- NOTE | 2025-01-15 09:35 | PC.NURSE ---
PER ESTELA OGLESBY OBTAIN EKG AND GIVE IV MET 5MG IV ONCE NOW
--- NOTE | 2025-01-15 09:39 | ECG_ITS ---
APPROVED REPORT Exam: Resting ECG HR:155 bpm ECG Measurements Heart Rate 155 AXES QRSd 126 QRS -52 QT 321 T 252 QTc 408 Conclusion ATRIAL FLUTTER/TACHYCARDIA WITH RAPID VENTRICULAR RESPONSE POSSIBLE RIGHT VENTRICULAR CONDUCTION DELAY [RSR (QR) IN V1/V2] LEFT ANTERIOR FASCICULAR BLOCK [QRS AXIS <= -45, QR IN I, RS IN II] ST DEVIATION AND MODERATE T-WAVE ABNORMALITY, CONSIDER LATERAL ISCHEMIA [-0.1+ mV T-WAVE IN I/aVL/V5/V6] ST DEVIATION AND MODERATE T-WAVE ABNORMALITY, CONSIDER INFERIOR ISCHEMIA [-0.1+ mV T-WAVE IN II/aVF] CRITICAL TEST RESULT UNCONFIRMED REPORT Electronically signed by : Jcarlos Hill MD 01/16/2025 11:15:17
[2025-01-15] MEDS: METOPROLOL TARTRATE 5MG/5ML VIAL 5 MG IV (09:46)
--- NOTE | 2025-01-15 10:26 | EXP.PULM.CON ---
History of Present Illness History of present illness: Mr. Almendarez is a 54-year-old male with no self-reported significant past med history presents to the with worsening respiratory distress chest discomfort and pulmonary was called for further evaluation and management. Patient also reported severe chronic alcohol intake. [facility] Disclaimer: The information contained in this section may have been updated after the patient was seen, as this information can be updated by other users. Medical History Mediastinal lymphadenopathy Hilar lymphadenopathy Smoking greater than 30 pack years Surgical History History of hand surgery Social History Smoking Status: Current every day smoker alcohol intake: current current occupational status: other Travel in the last 8 weeks?: None Have you lived/traveled outside US in past 30 days?: No Contact w/someone who lives/traveled outside US past 30 days?: No Exposure to someone with infectious disease in past 14 days?: No Do you have a fever (greater than 100.4 F or 38 C)?: No Have you tested positive for COVID-19?: No Exposed to someone with COVID-19 in past 14 days?: No Do you have a sore throat?: No Do you have a cough?: No Do you have any weakness?: No Do you have any diarrhea?: No Are you experiencing any unusual bleeding?: No Do you have any muscle aches/pain?: No Do you have any abdominal pain?: No Are you experiencing loss of taste or smell?: No Review of Systems Constitutional Constitutional: Reports anorexia, Reports body ache(s) and Reports fatigue Eyes Eyes: Denies eye discharge, Denies dry eyes, Denies irritation and Denies itchy eyes ENT Ears, Nose, Mouth, and Throat: Denies epistaxis, Denies facial pain, Denies lip swelling and Denies throat swelling *Cardiovascular Cardiovascular: Reports dyspnea and Reports dyspnea on exertion *Respiratory Respiratory: Denies change in phlegm color, Reports chest congestion, Reports cough, Reports dyspnea, Reports dyspnea on exertion, Denies excessive phlegm production, Denies hemoptysis, Denies pain on inspiration, Denies pain with cough and Reports wheezing *Gastrointestinal Gastrointestinal: Denies abdominal pain, Denies belching and Denies cramping *Musculoskeletal Musculoskeletal: Reports back pain, Reports myalgias and Reports other (No small joint swelling or Pain) Psychiatric Psychiatric: Denies homicidal ideation and Denies suicidal ideation Endocrine Endocrine: Reports fatigue and Denies heat intolerance Hematologic/Lymphatic Hematologic/Lymphatic: Denies easy bleeding and Denies lymphadenopathy Allergic/Immunologic Allergic/Immunologic: Denies itchy eyes, Denies lip swelling, Denies throat swelling and Reports wheezing Pulmonology Exam Inpatient Vital signs and Labs for Last 24 Hours: Temp Pulse Resp BP Pulse Ox O2 Del Method O2 Flow Rate 97.6 F 114 H 19 121/88 93 L Room Air 2 01/15/25 08:00 01/15/25 10:00 01/15/25 10:00 01/15/25 10:00 01/15/25 10:00 01/15/25 10:00 01/15/25 08:00 Laboratory Results - last 24 hr 01/14/25 09:29: Urine Opiates Screen Negative, Urine Methadone Screen Negative, Ur Barbituates Screen Negative, Ur Phencyclidine Scrn Negative, Ur Amphetamines Screen Negative, U Benzodiazepines Scrn Negative, Urine Cocaine Screen Negative, U Marijuana (THC) Screen Negative 01/14/25 10:17: Troponin I 0.07 H 01/14/25 13:55: PT 12.2, INR 1.10, APTT 29.1, Phosphorus 4.0, Troponin I 0.08 H 01/14/25 17:20: Sodium 124 L, Potassium 3.4 L D, Chloride 89 L, Carbon Dioxide 32 H, Anion Gap 6.4, BUN 6 L D, Creatinine 0.50 L, Estimated Creat Clear 222, Estimated GFR 175, Est GFR ( Amer) 211, Glucose 154 H, Calcium 8.5 01/15/25 05:35: WBC 7.0 D, RBC 4.73, Hgb 16.0, Hct 45.8, MCV 96.8 H, MCH 33.8 H, MCHC 34.9, RDW 13.1, Plt Count 130 L, MPV 11.4 H, Neut % (Auto) 67.7, Lymph % (Auto) 20.0, [place] % (Auto) 10.4 H, Eos % (Auto) 1.0, Baso % (Auto) 0.6, Neut # (Auto) 4.8, Lymph # (Auto) 1.4, [place] # (Auto) 0.7, Eos # (Auto) 0.1, Baso # (Auto) 0.0, Sodium 126 L, Potassium 3.7, Chloride 91 L, Carbon Dioxide 35 H, Anion Gap 3.7 L, BUN 9 D, Creatinine 0.60 L, Estimated Creat Clear 167, Estimated GFR 141, Est GFR ( Amer) 171, Glucose 121 H D, Calcium 8.3 L, Magnesium 2.2 D, Total Bilirubin 2.6 H, AST 39 D, ALT 35 D, Alkaline Phosphatase 71, Total Protein 6.3, Albumin 3.3 L D, Globulin 3.0, Albumin/Globulin Ratio 1.1 I & O for Labs for Last 24 Hours: Intake & Output 01/12/25 01/13/25 01/14/25 01/15/25 23:59 23:59 23:59 23:59 Intake Total 360 / 860 500 / 500 Output Total 1300 / 1300 1450 / 1450 Balance -940 / -440 -950 / -950 Weight 200 lb 181 lb 0.587 oz Constitutional: Present moderate distress Head: Present normocephalic and atraumatic ENT: Present normal exam, normal oropharynx and mucous membranes moist Neck: Present normal inspection and full ROM Respiratory: Present respiratory distress, wheezes, crackles, diminished air movement and able to speak in complete sentences Cardiac: Present S1/S2, Tachycardia and radial pulses present GI: Present soft and distention; Absent tenderness or guarding Skin: Present intact; Absent cyanosis or jaundice Neuro: Present alert, awake and oriented x 3 Extremities: Present normal inspection; Absent clubbing or cyanosis Psychiatric: Present normal affect and cooperative Meds Home Medications and Allergies Home Medications ?Medication ?Instructions ?Recorded ?Confirmed ?Type No Known Home Medications 01/14/25 01/14/25 History New Prescriptions to Start Prescriptions: Allergies Allergy/AdvReac Type Severity Reaction Status Date / Time No Known Allergies Allergy Verified 01/14/25 07:30 Results Laboratory Findings 01/15/25 05:35 01/15/25 05:35 PT/INR, D-dimer PT 12.2 seconds (10.1-12.5) 01/14/25 13:55 INR 1.10 (0.9-1.1) 01/14/25 13:55 D-Dimer 2.97 ug/mL (0.0-0.5) H 01/14/25 07:20 Abnormal lab findings: Abnormal Labs 01/14/25 01/14/25 01/14/25 07:19 07:20 09:29 MCV MCH 34.2 H MCHC 36.7 H Plt Count MPV 10.9 H Neut % (Auto) 80.6 H Lymph % (Auto) 9.7 L [place] % (Auto) Neut # (Auto) 8.5 H D-Dimer 2.97 H Sodium 119 L Potassium Chloride 90 L Carbon Dioxide Anion Gap BUN 3 L Creatinine 0.50 L Glucose 130 H Calcium Magnesium 1.3 L Total Bilirubin 2.4 H AST 61 H Troponin I 0.07 H NT-Pro-B Natriuret Pep 3300 H Albumin Urine Protein 1+ A 01/14/25 01/14/25 01/14/25 10:17 13:55 17:20 MCV MCH MCHC Plt Count MPV Neut % (Auto) Lymph % (Auto) [place] % (Auto) Neut # (Auto) D-Dimer Sodium 124 L Potassium 3.4 L D Chloride 89 L Carbon Dioxide 32 H Anion Gap BUN 6 L D Creatinine 0.50 L Glucose 154 H Calcium Magnesium Total Bilirubin AST Troponin I 0.07 H 0.08 H NT-Pro-B Natriuret Pep Albumin Urine Protein 01/15/25 05:35 MCV 96.8 H MCH 33.8 H MCHC Plt Count 130 L MPV 11.4 H Neut % (Auto) Lymph % (Auto) [place] % (Auto) 10.4 H Neut # (Auto) D-Dimer Sodium 126 L Potassium Chloride 91 L Carbon Dioxide 35 H Anion Gap 3.7 L BUN Creatinine 0.60 L Glucose 121 H D Calcium 8.3 L Magnesium Total Bilirubin 2.6 H AST Troponin I NT-Pro-B Natriuret Pep Albumin 3.3 L D Urine Protein Assessment and Plan *Assessment and plan (1) Smoking greater than 30 pack years: Status: Acute Category: Social Hx Code(s): F17.210 - Nicotine dependence, cigarettes, uncomplicated (2) Emphysema lung: Status: Acute Category: Medical Code(s): J43.9 - Emphysema, unspecified (3) Hilar lymphadenopathy: Status: Acute Category: Medical Code(s): R59.0 - Localized enlarged lymph nodes (4) Mediastinal lymphadenopathy: Status: Acute Category: Medical Code(s): R59.0 - Localized enlarged lymph nodes Plan Mr. Almendarez is a 54-year-old male with no self-reported significant past med history presents to the with worsening respiratory distress chest discomfort and pulmonary was called for further evaluation and management. Patient also reported severe chronic alcohol intake. CTA upon admission no evidence of pulmonary embolism. Calcified pulmonary nodule. Significant lymphadenopathy at station 4R, station 7 and 10 are noted. No lymph node calcifications appreciated. No pulmonary nodules noted except for the left lower lobe calcified nodule.. Minimal emphysematous changes appreciated. Cirrhotic changes of liver noted. No airspace disease/consolidative changes noted Patient admits symptoms with moderate to severe exertion. Denies any worsening cough or any productive phlegm. Plan: - Initiate Trelegy 100 inhaler along with albuterol/DuoNebs 4 times daily as needed. Will follow with a PFT as an outpatient basis to further determine ideal inhaler therapy -For the noted lymphadenopathy, we will follow as an outpatient basis and would likely schedule EBUS FNA. Can well be reactive from volume overload, cannot completely rule out malignant etiology. - Recommend age-appropriate screening # Thank you for involving pulmonary in this patient care. Will continue to follow.
--- NOTE | 2025-01-15 12:21 | IR_ITS ---
APPROVED REPORT Patient Location: Inpatient Mechanical Manufacturing Technician: EPIFANIO Vitale RT (R) PROCEDURES Left heart catheterization Left ventriculogram Selective coronary angiogram INDICATION Non-ST elevation myocardial infarction, New onset cardiomyopathy Informed consent was obtained prior to the procedure. COMPLICATIONS NONE Estimated Blood Loss: LESS THAN 10 ML TECHNIQUE One percent lidocaine used to anesthetize the right anterior aspect of the wrist. The right radial artery was accessed via the Seldinger technique. A 6 [place] sheath was placed in the right radial artery. 2.5 mg of Verapamil, 800 mcg of nitroglycerin, 1mg Lidocaine and 5000 U Heparin were given through the arterial sheath. The JL3 catheter was also used to perform left heart catheterization, left ventriculogram and selective coronary angiogram. At the end of the procedure the sheath was removed good hemostasis was achieved using Traclet band, patient was transferred to the postop holding area in stable condition. ANGIOGRAPHIC RESULTS The left main artery Normal The left anterior descending artery Proximally normal with mid vessel smooth 20 to 30% stenosis The circumflex artery Nondominant mild 10% luminal regularities The right coronary artery Large dominant with mild diffuse 10% luminal regularities The SANTA ventriculogram reveals Severe left ventricular dilatation and hypokinesis estimate ejection fraction 15% The left ventricular end-diastolic pressure 15 mmHg IMPRESSION Mild nonocclusive coronary artery disease Dilated ventricle with severe left ventricular dysfunction in the setting of normal LVEDP suggesting more of a chronic cardiomyopathy Paroxysmal atrial fibrillation PLAN 1. GDMT for systolic heart failure 2. Caution with diuretics in the setting of normal EDP 3. Risk factor modification 4. Following the cardiac catheterization patient experienced atrial fibrillation with rapid ventricular response heart rates 150s. He is currently being treated with IV metoprolol to achieve better rate control. 5. Anticoagulation for atrial fibrillation and systolic heart failure if he is an appropriate social candidate Electronically signed by : Sesar Nowak MD 01/15/2025 13:29:47
--- NOTE | 2025-01-15 12:44 | PC.NURSE ---
PT TO BOOK RE[facility] VIA WHEELCHAIR
[2025-01-15] MEDS: 0.9 % SODIUM CHLORIDE 500 ML 25 ML IV (12:54)
[2025-01-15] MEDS: VERAPAMIL 2.5MG/ML 2ML VIAL 2.5 MG IV (12:54)
[2025-01-15] MEDS: MIDAZOLAM HCL 1MG/ML 5ML VIAL 1 MG IV (12:55)
[2025-01-15] MEDS: diphenhydrAMINE 50MG/ML VIAL 50 MG IV (12:55)
[2025-01-15] MEDS: HEPARIN 1,000 UNITS/500ML NS (CATH LAB) 3000 UNIT IV (12:55)
[2025-01-15] MEDS: NITROGLYCERIN 800MCG/8ML SYR (CATH LAB) 800 MCG IA (12:55)
[2025-01-15] MEDS: HEPARIN 1,000 UNITS/ML 10ML VIAL (CATH LAB) 5000 UNIT IV (12:55)
[2025-01-15] MEDS: LIDOCAINE 1% 10ML MDV 10 ML IJ (12:55)
[2025-01-15] MEDS: FENTANYL 100MCG/2ML VIAL 50 MCG IV (12:56)
--- NOTE | 2025-01-15 13:41 | PC.NURSE ---
received report from izabel iqbal
--- NOTE | 2025-01-15 14:05 | PC.NURSE ---
pt is back from [facility] via stretcher @[id number].
--- NOTE | 2025-01-15 14:43 | EXP.CARD.CON ---
History of Present Illness History of Present Illness Consult date: 01/15/25 Requesting physician: Edson Mcrae Consult reason: shortness of breath Chief complaint: SOA, chest pain History of present illness: This is a 54-year-old white gentleman who presented to the emergency department with chest pain and shortness of breath. The patient states that the pain woke him up around 3 AM on the morning of admission. He describes this as a burning sensation in the central aspect of his chest. He states that this is mostly when he took a deep breath. It was associated with shortness of breath. He had also noticed a nonproductive cough that started several days before the chest pain. He denies any lower extremity edema. He denies any fever, chills, nausea, vomiting, diarrhea, PND. He does have associated orthopnea with his shortness of breath. The patient drinks about a case of beer a day. He also smokes 1 or 2 packs of cigarettes a day. He reports that he does not go to the doctor and does not take any medications on a regular basis. Since being in the emergency department his chest pain has resolved. He states that his shortness of breath has significantly improved as well. On admission he was found to have low sodium and effusions on chest x-ray. The patient also had an elevated BNP. He also has cirrhosis of the liver. [facility] Disclaimer: The information contained in this section may have been updated after the patient was seen, as this information can be updated by other users. Medical History Paroxysmal atrial fibrillation Non-STEMI (non-ST elevated myocardial infarction) Cardiomyopathy Angina pectoris Acute HFrEF (heart failure with reduced ejection fraction) Mediastinal lymphadenopathy Hilar lymphadenopathy Smoking greater than 30 pack years Surgical History History of hand surgery Social History Smoking Status: Current every day smoker alcohol intake: current current occupational status: other Travel in the last 8 weeks?: None Have you lived/traveled outside US in past 30 days?: No Contact w/someone who lives/traveled outside US past 30 days?: No Exposure to someone with infectious disease in past 14 days?: No Do you have a fever (greater than 100.4 F or 38 C)?: No Have you tested positive for COVID-19?: No Exposed to someone with COVID-19 in past 14 days?: No Do you have a sore throat?: No Do you have a cough?: No Do you have any weakness?: No Do you have any diarrhea?: No Are you experiencing any unusual bleeding?: No Do you have any muscle aches/pain?: No Do you have any abdominal pain?: No Are you experiencing loss of taste or smell?: No Review of Systems Review of Systems Review of systems:: pertinent systems reviewed and negative unless documented below Constitutional Constitutional: Reports system reviewed and no additional complaints, except as documented, Reports fatigue and Reports lethargy Eyes Eyes: Reports system reviewed and no additional complaints, except as documented ENT Ears, Nose, Mouth, and Throat: Reports system reviewed and no additional complaints, except as documented *Cardiovascular Cardiovascular: Reports system reviewed and no additional complaints, except as documented, Reports chest pain, Reports chest pain at rest, Reports chest pain with activity, Reports dyspnea and Reports dyspnea on exertion *Respiratory Respiratory: Reports system reviewed and no additional complaints, except as documented, Reports cough, Reports dyspnea and Reports dyspnea on exertion *Gastrointestinal Gastrointestinal: Reports system reviewed and no additional complaints, except as documented *Genitourinary Genitourinary: Reports system reviewed and no additional complaints, except as documented *Musculoskeletal Musculoskeletal: Reports system reviewed and no additional complaints, except as documented Integumentary/Breasts Skin/Breast: Reports system reviewed and no additional complaints, except as documented *Neurologic Neurologic: Reports system reviewed and no additional complaints, except as documented Psychiatric Psychiatric: Reports system reviewed and no additional complaints, except as documented Endocrine Endocrine: Reports system reviewed and no additional complaints, except as documented and Reports fatigue Hematologic/Lymphatic Hematologic/Lymphatic: Reports system reviewed and no additional complaints, except as documented Allergic/Immunologic Allergic/Immunologic: Reports system reviewed and no additional complaints, except as documented Exam Data for Last 24 hours Vital signs and Labs for Last 24 Hours: Temp Pulse Resp BP Pulse Ox O2 Del Method O2 Flow Rate 97.5 F L 78 18 106/67 L 94 L Nasal Cannula 2 01/15/25 11:00 01/15/25 14:20 01/15/25 14:20 01/15/25 14:20 01/15/25 14:20 01/15/25 14:20 01/15/25 14:20 Laboratory Results - last 24 hr 01/14/25 13:55: PT 12.2, INR 1.10, APTT 29.1, Troponin I 0.08 H 01/14/25 17:20: Sodium 124 L, Potassium 3.4 L D, Chloride 89 L, Carbon Dioxide 32 H, Anion Gap 6.4, BUN 6 L D, Creatinine 0.50 L, Estimated Creat Clear 222, Estimated GFR 175, Est GFR ( Amer) 211, Glucose 154 H, Calcium 8.5 01/15/25 05:35: WBC 7.0 D, RBC 4.73, Hgb 16.0, Hct 45.8, MCV 96.8 H, MCH 33.8 H, MCHC 34.9, RDW 13.1, Plt Count 130 L, MPV 11.4 H, Neut % (Auto) 67.7, Lymph % (Auto) 20.0, [place] % (Auto) 10.4 H, Eos % (Auto) 1.0, Baso % (Auto) 0.6, Neut # (Auto) 4.8, Lymph # (Auto) 1.4, [place] # (Auto) 0.7, Eos # (Auto) 0.1, Baso # (Auto) 0.0, Sodium 126 L, Potassium 3.7, Chloride 91 L, Carbon Dioxide 35 H, Anion Gap 3.7 L, BUN 9 D, Creatinine 0.60 L, Estimated Creat Clear 167, Estimated GFR 141, Est GFR ( Amer) 171, Glucose 121 H D, Calcium 8.3 L, Magnesium 2.2 D, Total Bilirubin 2.6 H, AST 39 D, ALT 35 D, Alkaline Phosphatase 71, Total Protein 6.3, Albumin 3.3 L D, Globulin 3.0, Albumin/Globulin Ratio 1.1 I & O for Last 24 hours: Intake & Output 01/12/25 01/13/25 01/14/25 01/15/25 23:59 23:59 23:59 23:59 Intake Total 360 / 860 710 / 710 Output Total 1300 / 1300 1450 / 1450 Balance -940 / -440 -740 / -740 Weight 200 lb 181 lb 0.587 oz Constitutional Constitutional: no acute distress and average body habitus *Routine HEENT Exam Head: Present normocephalic and atraumatic ENT: Present mucous membranes moist *Routine Neck Exam Neck: Present supple, full ROM and normal carotid upstroke; Absent JVD, carotid bruit or lymphadenopathy *Routine Respiratory Exam Respiratory: Present CTA bilaterally, normal respiratory effort, able to speak in complete sentences and symmetric chest movement *Routine Cardiovascular Exam Cardiovascular: Present RRR, Normal S1 and Normal S2; Absent murmur or gallop *Routine Abdominal Exam Abdominal: Present soft and normoactive bowel sounds; Absent tenderness, distended or organomegaly *Routine Extremities Exam Extremities: Present full ROM, pulses intact and normal capillary refill; Absent cyanosis, clubbing or edema *Routine Skin Exam Skin: Present intact and warm; Absent erythema *Routine Neurological Exam Neurological: Present alert, oriented X3 and CN II-XII intact; Absent sensory deficit or motor deficit Routine Psychiatric Exam Psychiatric: Present normal affect Meds Home Medications and Allergies Home Medications ?Medication ?Instructions ?Recorded ?Confirmed ?Type No Known Home Medications 01/14/25 01/14/25 History New Prescriptions to Start Prescriptions: Allergies Allergy/AdvReac Type Severity Reaction Status Date / Time No Known Allergies Allergy Verified 01/14/25 07:30 Assessment and Plan *Assessment and plan (1) Acute HFrEF (heart failure with reduced ejection fraction): Status: Acute Category: Medical Code(s): I50.21 - Acute systolic (congestive) heart failure (2) Chest pain: Status: Acute Qualifiers: Chest pain type: other chest pain Qualified Code(s): R07.89 - Other chest pain Category: Medical Code(s): R07.9 - Chest pain, unspecified (3) ETOH abuse: Status: Acute Category: Social Hx Code(s): F10.10 - Alcohol abuse, uncomplicated (4) Hyponatremia: Status: Acute Category: Medical Code(s): E87.1 - Hypo-osmolality and hyponatremia (5) Hypomagnesemia: Status: Acute Category: Medical Code(s): E83.42 - Hypomagnesemia (6) Cirrhosis: Status: Acute Qualifiers: Hepatic cirrhosis type: alcoholic cirrhosis Ascites presence: without ascites Qualified Code(s): K70.30 - Alcoholic cirrhosis of liver without ascites Category: Medical Code(s): K74.60 - Unspecified cirrhosis of liver (7) Emphysema lung: Status: Acute Qualifiers: Emphysema type: unspecified Qualified Code(s): J43.9 - Emphysema, unspecified Category: Medical Code(s): J43.9 - Emphysema, unspecified (8) Pleural effusion: Status: Acute Category: Medical Code(s): J90 - Pleural effusion, not elsewhere classified (9) Alcohol withdrawal: Status: Acute Qualifiers: Complication of substance-induced condition: with unspecified complication Qualified Code(s): F10.939 - Alcohol use, unspecified with withdrawal, unspecified Category: Medical Code(s): F10.939 - Alcohol use, unspecified with withdrawal, unspecified (10) Smoking greater than 30 pack years: Status: Acute Category: Social Hx Code(s): F17.210 - Nicotine dependence, cigarettes, uncomplicated (11) Mediastinal lymphadenopathy: Status: Acute Category: Medical Code(s): R59.0 - Localized enlarged lymph nodes (12) Hilar lymphadenopathy: Status: Acute Category: Medical Code(s): R59.0 - Localized enlarged lymph nodes (13) Angina pectoris: Status: Acute Category: Medical Code(s): I20.9 - Angina pectoris, unspecified (14) Cardiomyopathy: Status: Acute Qualifiers: Cardiomyopathy type: alcoholic Qualified Code(s): I42.6 - Alcoholic cardiomyopathy Category: Medical Code(s): I42.9 - Cardiomyopathy, unspecified (15) Non-STEMI (non-ST elevated myocardial infarction): Status: Acute Category: Medical Code(s): I21.4 - Non-ST elevation (NSTEMI) myocardial infarction (16) Paroxysmal atrial fibrillation: Status: Acute Category: Medical Code(s): I48.0 - Paroxysmal atrial fibrillation Plan Plan: 1. The patient was admitted to the hospital with acute HFrEF. The patient has an ejection fraction of 20%. The patient has a new onset cardiomyopathy. He will need aggressive diuresis for his acute HFrEF. He is being treated with Lasix 80 mg IV twice daily. 2. The patient is having chest pain and angina with his new onset cardiomyopathy. He does have an elevated troponin consistent with a non-STEMI. Will plan to proceed with left cardiac catheterization today to evaluate for coronary artery disease due to his non-STEMI, angina and new onset cardiomyopathy. 3. The patient has been educated the risk and benefits of proceeding with left cardiac catheterization. The patient verbalizes understanding and is agreeable in proceeding with the procedure. 4. The patient does drink about 24 beers a day. This could be an alcoholic cardiomyopathy. I had a long discussion with the patient about abstaining from alcohol use. He verbalizes understanding. 5. The patient will be n.p.o. in preparation for left cardiac catheterization. 6. The patient does have paroxysmal atrial fibrillation. He was in atrial fibrillation this morning with a heart rate of 154. He was given IV metoprolol this morning and he did convert to sinus rhythm. 7. He is on Lovenox at this time for anticoagulation. 8. His blood pressure is well-controlled. 9. His LDL goal is less than 55. Will get a lipid panel in the morning. 10. The patient does have cirrhosis of the liver. GI has been consulted. 11. The patient does have underlying COPD and suspicious pulmonary nodules. Pulmonology has been consulted. 12. The patient does have severe LV dysfunction with an ejection fraction of 20%. He is at increased risk for sudden cardiac due to his severe LV dysfunction. The patient will need a LifeVest prior to discharge home because of his increased risk of sudden cardiac . Will get this ordered. 13. The patient is an alcoholic. He is getting Valium, phenobarbital and thiamine. Will defer to the hospitalist. 14. The patient does have moderate to severe MR which is most likely pathologic from his CHF. 15. Further recommendations will be made pending the patient's response to treatment and the results of his left cardiac catheterization today. Thank you for the opportunity to help dissipate in the care of this patient. All recommendations and orders are per Dr. Mckee. Addendum: [facility] shows: Mild nonocclusive coronary artery disease Dilated ventricle with severe left ventricular dysfunction in the setting of normal LVEDP suggesting more of a chronic cardiomyopathy Paroxysmal atrial fibrillation PLAN 1. GDMT for systolic heart failure 2. Caution with diuretics in the setting of normal EDP 3. Risk factor modification 4. Following the cardiac catheterization patient experienced atrial fibrillation with rapid ventricular response heart rates 150s. He is currently being treated with IV metoprolol to achieve better rate control. 5. Anticoagulation for atrial fibrillation and systolic heart failure if he is an appropriate social candidate Plan: 1. Increase metoprolol to tartrate to 50 mg p.o. daily for suppression of atrial fibrillation. 2. Continue Lovenox for anticoagulation. He will need his to be switched to Eliquis prior to discharge home 3. Start Jardiance 10 mg daily for HFrEF. 4. Stop IV Lasix as the patient is euvolemic. 5. The patient will need to be on GDMT for 2 to 3 months then he will need a CARSON to re-evaluate the severity of his MR. If it is still moderate to severe then he will need to be considered for MitraClip. 6. Continue spironolactone for HFrEF.
[2025-01-15] MEDS: IOPAMIDOL-370 (76%);100ML BOTTLE 60 ML IV (15:13)
[2025-01-15] MEDS: EMPAGLIFLOZIN 10MG TABLET 10 MG PO (15:53)
[2025-01-15] MEDS: MULTIVITAMIN TABLET 1 EACH PO (16:00)
--- NOTE | 2025-01-15 16:10 | P.CONS_ITS ---
History of Present Illness *Admission Date: 01/14/25 *History of present illness: Mr. Almendarez is a 54-year-old with hospital admission because of respiratory distress and severe cardiomyopathy. During this evaluation, he did have a CT a of the chest and this did show a lobulated liver consistent with cirrhosis. The patient did not realize that he has cirrhosis. The patient's labs show hemoglobin 16.0, hematocrit 45.8 and platelet count 130,000 (mildly declined secondary to hypersplenism). His total bilirubin is 2.6 with AST 39, ALT 35 and alkaline phosphatase 71. He reports no melena, increased abdominal girth or any significant confusion. The patient does drink a case of beer daily. [facility] Disclaimer: The information contained in this section may have been updated after the patient was seen, as this information can be updated by other users. Medical History Paroxysmal atrial fibrillation Non-STEMI (non-ST elevated myocardial infarction) Cardiomyopathy Angina pectoris Acute HFrEF (heart failure with reduced ejection fraction) Mediastinal lymphadenopathy Hilar lymphadenopathy Smoking greater than 30 pack years Surgical History History of hand surgery Social History Smoking Status: Current every day smoker alcohol intake: current current occupational status: other Travel in the last 8 weeks?: None Have you lived/traveled outside US in past 30 days?: No Contact w/someone who lives/traveled outside US past 30 days?: No Exposure to someone with infectious disease in past 14 days?: No Do you have a fever (greater than 100.4 F or 38 C)?: No Have you tested positive for COVID-19?: No Exposed to someone with COVID-19 in past 14 days?: No Do you have a sore throat?: No Do you have a cough?: No Do you have any weakness?: No Do you have any diarrhea?: No Are you experiencing any unusual bleeding?: No Do you have any muscle aches/pain?: No Do you have any abdominal pain?: No Are you experiencing loss of taste or smell?: No Review of Systems *Neurologic Neurologic: Reports system reviewed and no additional complaints, except as documented Meds Home Medications and Allergies Home Medications ?Medication ?Instructions ?Recorded ?Confirmed ?Type No Known Home Medications 01/14/25 01/14/25 History New Prescriptions to Start Prescriptions: Allergies Allergy/AdvReac Type Severity Reaction Status Date / Time No Known Allergies Allergy Verified 01/14/25 07:30 Exam (Inpt) Vital signs and Labs for Last 24 Hours: Temp Pulse Resp BP Pulse Ox O2 Del Method O2 Flow Rate 97.5 F L 78 18 111/75 96 Nasal Cannula 2 01/15/25 11:00 01/15/25 15:20 01/15/25 15:20 01/15/25 15:20 01/15/25 15:20 01/15/25 15:20 01/15/25 15:20 Laboratory Results - last 24 hr 01/14/25 13:55: PT 12.2, INR 1.10, APTT 29.1 01/14/25 17:20: Sodium 124 L, Potassium 3.4 L D, Chloride 89 L, Carbon Dioxide 32 H, Anion Gap 6.4, BUN 6 L D, Creatinine 0.50 L, Estimated Creat Clear 222, Estimated GFR 175, Est GFR ( Amer) 211, Glucose 154 H, Calcium 8.5 01/15/25 05:35: WBC 7.0 D, RBC 4.73, Hgb 16.0, Hct 45.8, MCV 96.8 H, MCH 33.8 H , MCHC 34.9, RDW 13.1, Plt Count 130 L, MPV 11.4 H, Neut % (Auto) 67.7, Lymph % (Auto) 20.0, [place] % (Auto) 10.4 H, Eos % (Auto) 1.0, Baso % (Auto) 0.6, Neut # (Auto) 4.8, Lymph # (Auto) 1.4, [place] # (Auto) 0.7, Eos # (Auto) 0.1, Baso # (Auto) 0.0, Sodium 126 L, Potassium 3.7, Chloride 91 L, Carbon Dioxide 35 H, A nion Gap 3.7 L, BUN 9 D, Creatinine 0.60 L, Estimated Creat Clear 167, Estimated GFR 141, Est GFR ( Amer) 171, Glucose 121 H D, Calcium 8.3 L, M agnesium 2.2 D, Total Bilirubin 2.6 H, AST 39 D, ALT 35 D, Alkaline Phosphatase 71, Total Protein 6.3, Albumin 3.3 L D, Globulin 3.0, Albumin/Globulin Ratio 1.1 I & O for Labs for Last 24 Hours: Intake & Output 01/12/25 01/13/25 01/14/25 01/15/25 23:59 23:59 23:59 23:59 Intake Total 360 / 860 710 / 710 Output Total 1300 / 1300 1450 / 1450 Balance -940 / -440 -740 / -740 Weight 200 lb 181 lb 0.587 oz Comments:: Firm and blunted and enlarged liver below right costal margin, no ballotable liver or ascites, no masses Results Labs 01/15/25 05:35 01/15/25 05:35 Labs: Laboratory Results - last 24 hr 01/14/25 13:55: PT 12.2, INR 1.10, APTT 29.1 01/14/25 17:20: Sodium 124 L, Potassium 3.4 L D, Chloride 89 L, Carbon Dioxide 32 H, Anion Gap 6.4, BUN 6 L D, Creatinine 0.50 L, Estimated Creat Clear 222, Estimated GFR 175, Est GFR ( Amer) 211, Glucose 154 H, Calcium 8.5 01/15/25 05:35: WBC 7.0 D, RBC 4.73, Hgb 16.0, Hct 45.8, MCV 96.8 H, MCH 33.8 H , MCHC 34.9, RDW 13.1, Plt Count 130 L, MPV 11.4 H, Neut % (Auto) 67.7, Lymph % (Auto) 20.0, [place] % (Auto) 10.4 H, Eos % (Auto) 1.0, Baso % (Auto) 0.6, Neut # (Auto) 4.8, Lymph # (Auto) 1.4, [place] # (Auto) 0.7, Eos # (Auto) 0.1, Baso # (Auto) 0.0, Sodium 126 L, Potassium 3.7, Chloride 91 L, Carbon Dioxide 35 H, A nion Gap 3.7 L, BUN 9 D, Creatinine 0.60 L, Estimated Creat Clear 167, Estimated GFR 141, Est GFR ( Amer) 171, Glucose 121 H D, Calcium 8.3 L, M agnesium 2.2 D, Total Bilirubin 2.6 H, AST 39 D, ALT 35 D, Alkaline Phosphatase 71, Total Protein 6.3, Albumin 3.3 L D, Globulin 3.0, Albumin/Globulin Ratio 1.1 Assessment and Plan *Assessment and plan (1) Cirrhosis: Status: Acute Qualifiers: Ascites presence: without ascites Hepatic cirrhosis type: alcoholic cirrhosis Qualified Code(s): K70.30 - Alcoholic cirrhosis of liver without ascites Category: Medical Code(s): K74.60 - Unspecified cirrhosis of liver (2) Alcoholic cirrhosis: Status: Acute Category: Medical Code(s): K70.30 - Alcoholic cirrhosis of liver without ascites Plan 1. Cirrhosis?well compensated with normal transaminases and elevated total bilirubin 2.6. The risk factor is his chronic long-term heavy alcohol use and alcohol use disorder. He will be treated with pegylated methylnaltrexone for his alcohol use syndrome. I would like to see him back as an outpatient and then we can begin routine follow-up to check MELD scores and HCC screening. I do not suspect another etiology because of his heavy alcohol use but I will check ferritin, alpha-1 antitrypsin level and phenotype and chronic hepatitis serologies. I would check AFP and ammonia levels. We will likely need to do EGD as an outpatient to rule out portal hypertension. I would await improvement of his cardiac function before sedated EGD. I do not feel this is cardiac cirrhosis since this is not right sided heart failure.
[2025-01-15] MEDS: NICOTINE 21MG/24HR PATCH 21 MG TD ×2 (17:06→22:39)
[2025-01-15 17:09] LABS: Ammonia 13 umol/L (9-30); Iron 53 ug/dL (49-181)
[2025-01-15 17:18] LABS: Total Iron Binding Capacity 327 ug/dL (261-462)
[2025-01-15 17:45] LABS: Ferritin 344 ng/ml (17.9-464)
--- NOTE | 2025-01-15 17:58 | PEERSUPPORT ---
Peer Support Note Patient Information Patient Information: DOS: 01/15/2025 ? Reason: ETOH ? Ps consult ? ETOH Last Ingested: 01/13/2025 9 pm ? ETOH HX: 30+ years ? ETHO Current Consumption:12-24 Beers per day ? ? Previous Treatment: None Longest Length of Sobriety: 4-5 days Legal Issues: None ? Support System: Daughter- Rocío - Son in law- ? Current Stressors: -Being in hospital -Withdrawal; nicotine and alcohol ? Motivation for Change: Pt stated he has tried before to stop on his own but not been able to maintain. He is not one to go to doctors often, and has a difficult time staying but is trying to this time. Ps shared personal experience and position as peer support at hospital offering support to recovery. Pt is withdrawn at times. Ps request something to eat and drink. ? Ps acted as advocate to pt, Iman approved pt to have sandwich and milk per requested. ? Pt is appreciative. ? Potential Barriers: -Withdrawals: lack of awareness to symptoms -Lack of connection to recovery supports ? Harm Reduction: -Education on alcohol use disorder, treatment available and medications? -Chart of symptoms to build awareness to alcohol withdrawal -Stress ball; Safe Coping skill -Connection to [facility] Peer support ? Plan of action: -Withdrawal management -Self-advocacy by voicing what patient is experiencing to treatment team including when talking to doctor for better understanding.
--- NOTE | 2025-01-15 18:11 | CA_ITS ---
APPROVED REPORT EXAM: Comprehensive 2D, Doppler, and color-flow Echocardiogram with contrast Game Attendant: Candi Moss CRT Ht: 5 ft 9 in Wt: 200lbs BSA: 2.07 BP: 154/109 mmHg Indications: Chest Pain, COPD, Shortness of Breath, Peripheral Edema Echo Enhancing Agent Indication: Endocardial border delineation Agent(s) / Amount(s) Used: Definity 2 cc Comments: definity given 2D Dimensions LA Volume 63.40 mL LA Volume Index 29.90 mL/m2 (M/F) 16-34 M-Mode Dimensions RVDd 3.38 cm (0.9-2.6) LA Diam 3.70 cm (1.9-4.0) LVDd 6.79 cm (3.5-5.7) LVDs 5.85 cm (3.5-5.7) IVSd 0.87 cm (0.6-1.1) PWd 0.80 cm (0.6-1.1) EF (Teich) 28.70% FS 13.80% EDV (Teich) 238.40 mL ESV (Teich) 169.90 mL LV Diastology E Decel Time 150 (160-240 msec) E/A Ratio 5.12 MED A' 2.10 cm/s LAT A' 1.70 cm/s Aortic Valve AO Peak GR. 6.90 mmHg Mitral Valve MV E Max Quinten. 161.0 (40-130 cm/s) MV A Velocity 32.0 (40-130 cm/s) E/A Ratio 5.12 MV PHT 44.0 ms Pulmonary Valve PV Peak Velocity 93.0 (50-150 cm/s) Tricuspid Valve TR P. Velocity 314.00 cm/s RAP Estimate 10.00 mmHg RVSP 49.50 mmHg Left Ventricle The left ventricle is mildly dilated. Left ventricular systolic function is severely decreased. There is increased LV wall thickness. There is severe global hypokinesis present. Diastolic function is indeterminate. No left ventricle thrombus noted on this study. LVEF is 20%. Right Ventricle The right ventricle is mildly to moderately dilated. Right ventricle is severely hypokinetic. Atria The left atrium is mildly dilated. Right atrium is mildly dilated. There is no Doppler evidence of interatrial shunt. Aortic Valve The aortic valve is mildly thickened. There is no aortic valvular stenosis. No aortic regurgitation is present. Mitral Valve The posterior mitral valve leaflet appears tethered and restricted in motion. No evidence of mitral valve stenosis. Mild mitral regurgitation. The MR jet is eccentric and posteriorly directed. The right ventricle is normal in size. Tricuspid Valve The tricuspid valve leaflets are thin and pliable. Mild tricuspid regurgitation. RVSP 50-55 mmHg. Pulmonic Valve The pulmonary valve is normal in structure. Trace pulmonic regurgitation. Great Vessels The aortic root is normal in size. The IVC is dilated. Pericardium There is no pericardial effusion. Other Information Study Quality: Fair Conclusion Mild LV dilation with severe reduction in LV systolic function (LVEF 20%). Mild to moderate RV dilation with severe reduction in RV function. Mild biatrial dilation. Tethered posterior MV leaflet. Mild MR (eccentric prosterior jet). Mild tricuspid regurgitation. RVSP 50-55 mmHg. Electronically signed by : Jojo Mckee MD 01/15/2025 12:27:23
[2025-01-15] MEDS: METOPROLOL TARTRATE 50MG TABLET 25 MG PO (18:23)
--- NOTE | 2025-01-15 19:58 | P.PN_ITS ---
Subjective *Date: 01/15/25 *Time: 23:30 Interval history: Remained stable on room air. Responding to diuresis. Denies chest pain. No nausea or vomiting. Being evaluated today by cardiology, GI, pulmonology Medical Exam Vital signs and Labs for Last 24 Hours: Vital Signs Temp Pulse Pulse Pulse Resp BP Pulse Ox 01/15/25 18:51 01/15/25 18:50 116 H 18 115/79 96 01/15/25 17:50 123 H 18 132/82 90 L 01/15/25 17:10 01/15/25 16:50 110 H 18 130/73 91 L 01/15/25 16:20 78 18 106/67 L 97 01/15/25 16:00 82 01/15/25 15:50 78 18 110/70 96 01/15/25 15:20 78 18 111/75 96 01/15/25 15:00 01/15/25 14:50 90 16 105/72 L 97 01/15/25 14:35 80 18 106/67 L 91 L 01/15/25 14:20 78 18 106/67 L 94 L 01/15/25 14:09 80 92 L 01/15/25 14:05 82 18 119/73 93 L 01/15/25 13:50 85 20 131/75 96 01/15/25 13:45 85 20 124/67 95 01/15/25 13:41 83 20 134/68 94 L 01/15/25 13:35 85 20 115/73 95 01/15/25 13:31 130 H 138 H 20 92/68 L 95 01/15/25 12:00 90 01/15/25 11:16 01/15/25 11:00 97.5 F L 82 19 123/91 H 94 L 01/15/25 10:00 114 H 19 121/88 93 L 01/15/25 08:50 01/15/25 08:45 140 H 96 01/15/25 08:00 120 H 01/15/25 08:00 97.6 F 126 H 18 142/97 H 95 01/15/25 06:47 01/15/25 06:00 97.9 F 91 H 18 144/95 H 94 L 01/15/25 05:00 01/15/25 04:00 138 H 01/15/25 04:00 97.6 F 90 20 129/90 94 L 01/15/25 03:00 01/15/25 02:00 99 01/15/25 02:00 85 18 122/77 90 L 01/15/25 01:00 01/15/25 00:00 90 01/15/25 00:00 84 18 122/83 95 01/14/25 23:00 01/14/25 22:00 94 H 16 125/83 96 01/14/25 21:00 01/14/25 20:00 144 H 01/14/25 20:00 146 H 89 L 01/14/25 20:00 99.0 F O2 Del Method O2 Flow Rate 01/15/25 18:51 Nasal Cannula 2 01/15/25 18:50 Nasal Cannula 2 01/15/25 17:50 Room Air 01/15/25 17:10 Nasal Cannula 2 01/15/25 16:50 Room Air 01/15/25 16:20 Nasal Cannula 2 01/15/25 16:00 01/15/25 15:50 Nasal Cannula 2 01/15/25 15:20 Nasal Cannula 2 01/15/25 15:00 Nasal Cannula 2 01/15/25 14:50 Nasal Cannula 2 01/15/25 14:35 Nasal Cannula 2 01/15/25 14:20 Nasal Cannula 2 01/15/25 14:09 Nasal Cannula 2 01/15/25 14:05 Nasal Cannula 2 01/15/25 13:50 01/15/25 13:45 01/15/25 13:41 Room Air 01/15/25 13:35 01/15/25 13:31 Room Air 01/15/25 12:00 01/15/25 11:16 Room Air 01/15/25 11:00 Room Air 01/15/25 10:00 Room Air 01/15/25 08:50 Room Air 01/15/25 08:45 Room Air 01/15/25 08:00 01/15/25 08:00 Nasal Cannula 2 01/15/25 06:47 Room Air 01/15/25 06:00 Room Air 01/15/25 05:00 Room Air 01/15/25 04:00 01/15/25 04:00 Nasal Cannula 2 01/15/25 03:00 Nasal Cannula 2 01/15/25 02:00 Nasal Cannula 2 01/15/25 02:00 Nasal Cannula 2 01/15/25 01:00 Nasal Cannula 2 01/15/25 00:00 01/15/25 00:00 Room Air, Nasal Cannula 2 01/14/25 23:00 Nasal Cannula 2 01/14/25 22:00 Nasal Cannula 2 01/14/25 21:00 Nasal Cannula 2 01/14/25 20:00 01/14/25 20:00 Nasal Cannula 2 01/14/25 20:00 Intake and Output 01/15/25 01/15/25 01/15/25 07:59 15:59 23:59 Intake Total 500 / 1250 210 / 1250 540 / 1250 Output Total 1300 / 2200 150 / 2200 750 / 2200 Balance -800 / -950 60 / -950 -210 / -950 Intake: Intake, Oral Amount 500 / 1250 210 / 1250 540 / 1250 Output: Output, Urine Amount 1300 / 2200 150 / 2200 750 / 2200 Other: Number of Voids 1 Number of Unmeasured Voids 2 Weight 82.117 kg Patient Weight 01/15/25 23:59 Weight 82.117 kg Laboratory Results - last 24 hr 01/15/25 05:35: WBC 7.0 D, RBC 4.73, Hgb 16.0, Hct 45.8, MCV 96.8 H, MCH 33.8 H , MCHC 34.9, RDW 13.1, Plt Count 130 L, MPV 11.4 H, Neut % (Auto) 67.7, Lymph % (Auto) 20.0, Butts % (Auto) 10.4 H, Eos % (Auto) 1.0, Baso % (Auto) 0.6, Neut # (Auto) 4.8, Lymph # (Auto) 1.4, Butts # (Auto) 0.7, Eos # (Auto) 0.1, Baso # (Auto) 0.0, Sodium 126 L, Potassium 3.7, Chloride 91 L, Carbon Dioxide 35 H, Anion Gap 3.7 L, BUN 9 D, Creatinine 0.60 L, Estimated Creat Clear 167, Estimated GFR 141, Est GFR ( Amer) 171, Glucose 121 H D, Calcium 8.3 L, Magnesium 2.2 D, Total Bilirubin 2.6 H, AST 39 D, ALT 35 D, Alkaline Phosphatase 71, Total Protein 6.3, Albumin 3.3 L D, Globulin 3.0, Albumin/Globulin Ratio 1.1 01/15/25 16:39: Iron 53, TIBC 327, Iron Saturation 16.19979, Ferritin 344, Ammonia 13 I & O for Labs for Last 24 Hours: Intake & Output 01/12/25 01/13/25 01/14/25 01/15/25 23:59 23:59 23:59 23:59 Intake Total 360 / 860 1250 / 1250 Output Total 1300 / 1300 2200 / 2200 Balance -940 / -440 -950 / -950 Weight 90.718 kg 82.117 kg Constitutional: Present mild distress, average body habitus, chronically ill appearing and cooperative Head: Present atraumatic Respiratory: Present wheezes (Minimal) and normal respiratory effort; Absent rhonchi or crackles Cardiac: Present Irregularly Regular and Tachycardia GI: Present soft, distention and normal bowel sounds; Absent tenderness Extremities: Present normal inspection, full ROM and edema (Trace bilateral lower extremity) Skin: Present intact; Absent erythema Neuro: Present Grossly Intact, alert, awake, oriented x 3 and moves all extremities Assessment and Plan *Assessment and plan (1) Alcohol withdrawal: Status: Acute Qualifiers: Complication of substance-induced condition: with unspecified complication Qualified Code(s): F10.939 - Alcohol use, unspecified with withdrawal, unspecified Category: Medical Code(s): F10.939 - Alcohol use, unspecified with withdrawal, unspecified (2) Acute CHF: Status: Acute Category: Medical Code(s): I50.9 - Heart failure, unspecified (3) ETOH abuse: Status: Acute Category: Social Hx Code(s): F10.10 - Alcohol abuse, uncomplicated (4) Pleural effusion: Status: Acute Category: Medical Code(s): J90 - Pleural effusion, not elsewhere classified (5) Tracheal nodule: Status: Acute Category: Medical Code(s): J39.8 - Other specified diseases of upper respiratory tract (6) Emphysema lung: Status: Acute Qualifiers: Emphysema type: unspecified Qualified Code(s): J43.9 - Emphysema, unspecified Category: Medical Code(s): J43.9 - Emphysema, unspecified (7) Cirrhosis: Status: Acute Qualifiers: Ascites presence: without ascites Hepatic cirrhosis type: alcoholic cirrhosis Qualified Code(s): K70.30 - Alcoholic cirrhosis of liver without ascites Category: Medical Code(s): K74.60 - Unspecified cirrhosis of liver (8) Hypomagnesemia: Status: Acute Category: Medical Code(s): E83.42 - Hypomagnesemia (9) Hyponatremia: Status: Acute Category: Medical Code(s): E87.1 - Hypo-osmolality and hyponatremia Plan 54-year-old male who presented with chest discomfort and shortness of breath. Found to have new diagnosis of CHF, pleural effusions, volume overload, emphysema, lung nodules, and active alcohol withdrawal. Discussed case with ER physician, request admission for management and further workup of his significant abnormalities as well as his alcohol withdrawal. I agreed to admit for further care. Continue withdrawal protocol. Being evaluated by kevin FRANCIS ardiology, pulmonology today. Problems addressed as follows: Alcohol abuse disorder Alcohol withdrawal -At risk for severe withdrawal. Started on CIWA protocol with Valium. - continue 65 mg twice daily. - Continue p.o. Multivitamin, thiamine, folate daily - extension service specialist consulted to assist with management during inpatient as well as outpatient referral for rehab - No signs of infection, white count 7, hemoglobin 16. Hyponatremia: - Secondary to beer Potomania. Monitor for improvement with diuresis. Anticipate resolution with normal dietary replacement, and avoidance of beer. Sodium 119 on admission. - Correcting at goal between 8 and 10 mEq/day. Improved to 126 this morning. Potassium 3.7, phosphorus 4.0, magnesium 2.2 - Monitor electrolytes daily with CBC, CMP, magnesium and phosphorus ordered for the morning Cirrhosis, suspected secondary to alcoholic - CT abdomen pelvis with finding of cirrhosis. Discussed case with GI, recommend outpatient eval for cirrhosis. Likely alcoholic in etiology. New diagnosis of CHF Atrial fibrillation Hyperlipidemia - elevated BNP of 3300, mild elevation in troponin at 0.07-0.08. No delta on serial levels. Suspect NSTEMI due to alcoholism and withdrawal - Cardiology consulted to assist with management and further workup - Echocardiogram with EF of 30%. --2 L in past 24 hours - Discussed case with cardiology, plan for left heart cath today to evaluate for ischemic changes. Increase metoprolol to 50 mg twice daily, continue Lovenox 1 mg/kg twice daily. Initiate Jardiance 10 mg daily. Discontinue Lasix today. Will need LifeVest prior to discharge. Continue spironolactone for heart failure - Lipid panel ordered for the morning. Pulmonary nodules Emphysema - CT chest with 2 suspicious lung nodules. Emphysema found. Will initiate DuoNebs every 6 hours as needed - Discussed case with pulmonology, plan for EBUS as an outpatient to evaluate lymph nodes - Initiate Trelegy 100 inhaler Tobacco use disorder: Smokes 2 packs a day. Initiated on 1 patch daily. Will consider increasing to 2 patches pending symptoms Full code Lovenox 1 mg/kg twice daily Regular diet
[2025-01-15] MEDS: IPRATROPIUM/ALBUTEROL 3 ML NEB IH (21:47)
[2025-01-15] MEDS: METOPROLOL TARTRATE 50MG TABLET 50 MG PO (22:10)
[2025-01-16] VITALS (7 sets, daily range): BP systolic 111–144; BP diastolic 59–94; PULSE 75–90; RESP 18–20; TEMP 36.4–37; O2SAT 94–99; BMI 27.2
[2025-01-16] MEDS: FLUTICASONE/UMECLIDIN/VILANTER 100/62.5/25MCG INHALER 1 PUFF IH (05:59)
[2025-01-16 06:13] LABS: Basophils % 0.5 % (0.1-2.0); Eosinophils # 0.2 Kmm3 (0.0-0.4); Eosinophils % 2.6 % (0.1-12.0); Hematocrit 46.2 % (42.0-52.0); Hemoglobin 16.2 g/dL (14.1-18.0); Lymphocytes # 2.2 K/mm3 (0.7-4.5); Lymphocytes % 26.4 % (10-50); Mean Corpuscular HGB Conc 35.1 g/dL (31.8-35.4); Mean Corpuscular Hemoglobin 33.9 pg (27.0-31.2); Mean Corpuscular Volume 96.7 fl (80-94); Mean Platelet Volume 11.9 fl (7.4-10.4); Monocytes # 0.7 K/mm3 (0.1-1.0); Monocytes % 8.7 % (1.7-9.3); Neutrophils % 61.4 % (37.0-80.0); Nucleated Red Blood Cells # 0 10^3/uL; Nucleated Red Blood Cells % 0 %; Platelet Count 146 K/mm3 (142-424); Red Blood Count 4.78 M/mm3 (4.60-6.20); Red Cell Distribution Width 12.8 % (11.5-17.5); Red Cell Distribution Width-SD 46.3 fL; White Blood Count 8.1 K/mm3 (4.8-10.8)
[2025-01-16 06:29] LABS: Alanine Aminotransferase 38 U/L (12-78); Albumin Level 3.5 g/dl (3.5-5.0); Alkaline Phosphatase 73 U/L (38-126); Anion Gap 2.8 mEq/L (5-15); Aspartate Amino Transferase 38 U/L (17-59); Bilirubin,Direct 0.3 mg/dl (0.0-0.4); Bilirubin,Indirect 0.6 mg/dL (0.0-0.9); Bilirubin,Total 0.9 mg/dl (0.2-1.3); Bilirubin,Unconjugated 0.5 mg/dL (0.0-1.1); Blood Urea Nitrogen 15 mg/dl (9-20); Calcium 8.7 mg/dl (8.4-10.2); Carbon Dioxide 33 mmol/L (22.0-30.0); Chloride 96 mmol/L (98-107); Chol/HDL Ratio 3.8 (1-3.5); Cholesterol 190 mg/dl (140-200); Creatinine Clearance Estimated 170 mL/min (50-200); Estimated Glomerular Filt Rate 141 ml/min (>60); GFR (African American) 171 ML/MIN (>60); Glucose 125 mg/dl (74-100); HDL Cholesterol 50 mg/dl (40-60); Potassium 3.8 mmoL/L (3.5-5.1); Sodium 128 mmol/L (136-145); Total Protein,Serum 6.5 g/dl (6.3-8.2); Triglycerides 160 mg/dl (30-150); VLDL Cholesterol 32 mg/dL (0-40)
[2025-01-16 06:40] LABS: Direct LDL Cholesterol 96.55 mg/dL (100-129)
--- NOTE | 2025-01-16 09:19 | HMH.OTEV ---
OT Inpatient Evaluation Rehab OT IP Evaluation Start: 01/15/25 11:05 Freq: ONCE Status: Active Protocol: Document 01/16/25 09:17 WARNER (Rec: 01/16/25 09:19 [id number] Rehab OT IP Assessment Subjective History Pt oriented x 3 on arrival. Pt agreeable to engage in therapy evaluation. Pt admitted on 01/14/25 due to chest pain and alcohol withdrawal. History and physical: 54-year-old male who denies significant past medical history, presents via EMS from home for chest pain that started at 3 AM this morning. Patient describes the pain as being a burning across his chest whenever he takes a deep breath. Has had a cough recently. Pain does not radiate into his back. Pain is described as less than a 5 out of 10. EMS twelve-lead without ST elevation, patient was given 324 aspirin, 0.4 nitro. Patient continues to have chest pain on deep inspiration however pain not present whenever not taking deep breaths. Patient further states he is also had some swelling in both of his legs for the last few weeks which is described as symmetrical. Does not take any medications. Patient also drinks 12-24 beers daily. Last drink approximately 13 hours ago. Patient tremulous and tachycardic on arrival. Please note that above description of symptoms, in this electronic medical record under categorization of recalled from ER triage doctor by RN are reflective of an initial nursing assessment, however, is not reflective of my full history and physical exam that was personally taken and clarified. Consequentially, this preceding description of symptoms, which may include the patient's categorized chief complaint in the EMR, do not reflect my personal clinical impression, and the ultimate description of history of present illness and patient stated complaints should be deferred to this section of the note. Unless stated otherwise or congruent with this section of the note, additional signs, symptoms, or incongruence should be interpreted as inaccurate with my clinical Subjective Prior to being in the hospital , pt lived at home with his . Pt claims normally he is independent with all ADLs and IADLs. He does not require any type of AE during functional transfers and he still drives occastionally. Objective Patient Orientation Person,Place,Birthday Right Upper Extremity Gross ROM WFL Left Upper Extremity Gross ROM WFL Bed Mobility bed mobility-scooting,bed mobility - supine/sit Assist Level Supervision/Stand by Transfer Training Sit/Stand Transfer Assist Level Supervision/Stand by Chair Transfer Ability Supervision/Stand by Chair Transfer Technique Sit to/from Ambulatory Lower Body Dressing Ability Independent Rehab OT IP prob,goals,plan Problems Date of Evaluation: 01/16/25 Rehab Potential Rehab Potential Innapropriate for Skilled Therapy Discharge Plan OT Discharge Plan Pt appears to be at his baseline with functional transfers and ADL independence . Pt can return home with his once he is medically stable per physician. Eval Complexity Eval Charge Codes 01565 - Moderate Complexity PHYSICIAN CERTIFICATION: I certify the specified therapy services for Harshad Almendarez are required, authorized, and reviewed every 30 days.
[2025-01-16] MEDS: ENOXAPARIN 80MG/0.8ML SYRINGE 80 MG SUBCUT (09:24)
[2025-01-16] MEDS: EMPAGLIFLOZIN 10MG TABLET 10 MG PO (09:24)
[2025-01-16] MEDS: SPIRONOLACTONE 25MG TABLET 25 MG PO (09:25)
[2025-01-16] MEDS: METOPROLOL TARTRATE 50MG TABLET 50 MG PO (09:25)
[2025-01-16] MEDS: FOLIC ACID 1MG TABLET 1 MG PO (09:25)
[2025-01-16] MEDS: THIAMINE 100MG TABLET 100 MG PO (09:25)
[2025-01-16] MEDS: ASPIRIN EC 81MG TABLET 81 MG PO (09:25)
[2025-01-16] MEDS: SACUBITRIL/VALSARTAN 24-26MG TABLET 1 EACH PO (09:25)
[2025-01-16] MEDS: NICOTINE 21MG/24HR PATCH 21 MG TD (09:27)
--- NOTE | 2025-01-16 10:33 | P.PN_ITS ---
Subjective Subjective Date: 01/16/25 Time: 09:30 Principal diagnosis: HFrEF, alcoholism Interval history: This is a 54-year-old white gentleman who presented to the emergency department with chest pain and shortness of breath. The patient states that the pain woke him up around 3 AM on the morning of admission. He describes this as a burning sensation in the central aspect of his chest. He states that this is mostly when he took a deep breath. It was associated with shortness of breath. The patient was diuresed with IV Lasix. He underwent left cardiac catheterization yesterday which showed mild nonocclusive coronary artery disease. He also had a normal LVEDP with dilated ventricle and severe left ventricular dysfunction suggesting more of a chronic cardiomyopathy. Today he denies any chest pain or pressure. He denies any shortness of breath or edema. He denies any fever, chills, nausea, vomiting, diarrhea, PND orthopnea. He states that he is ready to be discharged home. He states that he does not feel like he is having any tremors or anxiety at this time and does not feel like he is having any issues with abstaining from alcohol use. Exam Data for Last 24 hours Vital signs and Labs for Last 24 Hours: Temp Pulse Resp BP Pulse Ox O2 Del Method O2 Flow Rate 98.6 F 88 20 144/59 H 96 Room Air 2 01/16/25 08:00 01/16/25 08:00 01/16/25 08:00 01/16/25 08:00 01/16/25 08:00 01/16/25 09:00 01/16/25 07:00 Laboratory Results - last 24 hr 01/15/25 16:39: Iron 53, TIBC 327, Iron Saturation 16.71055, Ferritin 344, Ammonia 13 01/16/25 05:27: WBC 8.1, RBC 4.78, Hgb 16.2, Hct 46.2, MCV 96.7 H, MCH 33.9 H, MCHC 35.1, RDW 12.8, Plt Count 146, MPV 11.9 H, Neut % (Auto) 61.4, Lymph % (Auto) 26.4, Kimball % (Auto) 8.7, Eos % (Auto) 2.6, Baso % (Auto) 0.5, Neut # (Auto) 5.0, Lymph # (Auto) 2.2, Kimball # (Auto) 0.7, Eos # (Auto) 0.2, Baso # (Auto) 0.0, Sodium 128 L, Potassium 3.8, Chloride 96 L, Carbon Dioxide 33 H, Anion Gap 2.8 L, BUN 15 D, Creatinine 0.60 L, Estimated Creat Clear 170, Estimated GFR 141, Est GFR ( Amer) 171, Glucose 125 H, Calcium 8.7, Total Bilirubin 0.9, Direct Bilirubin 0.3, Conjugated Bilirubin 0.0, Indirect Bilirubin 0.6, Unconjugated Bilirubin 0.5, AST 38, ALT 38, Alkaline Phosphatase 73, Total Protein 6.5, Albumin 3.5, Triglycerides 160 H, Cholesterol 190, LDL Cholesterol Direct 96.55 L, VLDL Cholesterol 32, HDL Cholesterol 50, Cholesterol/HDL Ratio 3.8 H I & O for Last 24 hours: Intake & Output 01/13/25 01/14/25 01/15/25 01/16/25 23:59 23:59 23:59 23:59 Intake Total 360 / 860 1250 / 1750 1130 / 1130 Output Total 1300 / 1300 2200 / 2200 1600 / 1600 Balance -940 / -440 -950 / -450 -470 / -470 Weight 200 lb 181 lb 0.587 oz 184 lb 0.5 oz Narrative: Left heart cath shows: The left main artery Normal The left anterior descending artery Proximally normal with mid vessel smooth 20 to 30% stenosis The circumflex artery Nondominant mild 10% luminal regularities The right coronary artery Large dominant with mild diffuse 10% luminal regularities The SANTA ventriculogram reveals Severe left ventricular dilatation and hypokinesis estimate ejection fraction 15% The left ventricular end-diastolic pressure 15 mmHg IMPRESSION Mild nonocclusive coronary artery disease Dilated ventricle with severe left ventricular dysfunction in the setting of normal LVEDP suggesting more of a chronic cardiomyopathy Paroxysmal atrial fibrillation PLAN 1. GDMT for systolic heart failure 2. Caution with diuretics in the setting of normal EDP 3. Risk factor modification 4. Following the cardiac catheterization patient experienced atrial fibrillation with rapid ventricular response heart rates 150s. He is currently being treated with IV metoprolol to achieve better rate control. 5. Anticoagulation for atrial fibrillation and systolic heart failure if he is an appropriate social candidate Constitutional Constitutional: no acute distress and average body habitus *Routine HEENT Exam Head: Present normocephalic and atraumatic ENT: Present mucous membranes moist *Routine Neck Exam Neck: Present supple, full ROM and normal carotid upstroke; Absent JVD, carotid bruit or lymphadenopathy *Routine Respiratory Exam Respiratory: Present CTA bilaterally, normal respiratory effort, able to speak in complete sentences and symmetric chest movement *Routine Cardiovascular Exam Cardiovascular: Present RRR, Normal S1 and Normal S2; Absent murmur or gallop *Routine Abdominal Exam Abdominal: Present soft and normoactive bowel sounds; Absent tenderness, distended or organomegaly *Routine Extremities Exam Extremities: Present full ROM, pulses intact and normal capillary refill; Absent cyanosis, clubbing or edema *Routine Skin Exam Skin: Present intact and warm; Absent erythema *Routine Neurological Exam Neurological: Present alert, oriented X3 and CN II-XII intact; Absent sensory deficit or motor deficit Routine Psychiatric Exam Psychiatric: Present normal affect Progress Note: A&P Assessment and plan (1) Acute HFrEF (heart failure with reduced ejection fraction): Status: Acute (2) Cardiomyopathy: Status: Acute (3) Non-STEMI (non-ST elevated myocardial infarction): Status: Acute (4) Paroxysmal atrial fibrillation: Status: Acute (5) ETOH abuse: Status: Acute (6) Pleural effusion: Status: Acute (7) Tracheal nodule: Status: Acute (8) Emphysema lung: Status: Acute (9) Cirrhosis: Status: Acute (10) Hyponatremia: Status: Acute (11) Alcoholic cirrhosis: Status: Acute (12) Mediastinal lymphadenopathy: Status: Acute (13) Hilar lymphadenopathy: Status: Acute (14) Smoking greater than 30 pack years: Status: Acute Assessment and Plan Assessment and Plan for All Diagnoses:: Plan: 1. The patient was admitted to the hospital with acute HFrEF. The patient has an ejection fraction of 20%. The patient has a new onset cardiomyopathy. He was initially diuresed with IV Lasix. Following his left cardiac catheterization IV diuretics were stopped because he had normal LVEDP and he was euvolemic. 2. The patient does have coronary artery disease. It is mild and nonocclusive. Recommend aspirin 81 mg daily. 3. The patient does have severe LV dysfunction. His ejection fraction is estimated around 20%. The patient is at increased risk for sudden cardiac due to his severe LV dysfunction. He will need to have a LifeVest in place prior to discharge home. His LifeVest has been approved and will be fitted today. 4. The patient drinks about a case of beer a day. 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 He has been started on GDMT with metoprolol, Entresto, Jardiance, and spironolactone. Will hold off on Lasix at this time as he has a normal LVEDP. 5. The patient is getting Valium, phenobarbital and thiamine per the hospitalist for his alcoholism. Will defer. 6. The patient does have cirrhosis of the liver as well from his alcoholism. He has been seen by GI. Will defer. 7. The patient does have paroxysmal atrial fibrillation. He is currently in sinus rhythm on metoprolol. 8. Stop Lovenox and start Eliquis 5 mg p.o. twice daily for long-term anticoagulation secondary to the paroxysmal atrial fibrillation. 9. His blood pressure has improved today. 10. His LDL goal is less than 55. His LDL is 96. He has been started on a statin. 11. The patient does have underlying COPD and pulmonary nodules. Pulmonology was consulted. Will defer. 12. The patient's echocardiogram showed an ejection fraction of 20% with mild MR. The dictation yesterday stating that his MR was moderate to severe was incorrect. No follow-up CARSON is needed as his MR is only mild. 13. No further recommendations at this time from a cardiac standpoint. The patient can be discharged today from a cardiac standpoint once his LifeVest is in place. He will need to follow-up in cardiology clinic in 1 week on an outpatient basis. 14. The patient can be discharged on the following cardiac medications: Aspirin 81 mg daily, atorvastatin 40 mg p.o. nightly, Jardiance 10 mg daily, metoprolol tartrate 50 mg p.o. twice daily, Entresto 24/26 mg p.o. twice daily, spironolactone 25 mg p.o. daily and Eliquis 5 mg p.o. twice daily Thank you for the opportunity to help participate in the care of this patient. All recommendations and orders are per Dr. Mckee.
--- NOTE | 2025-01-16 10:59 | HMH.PTEV ---
Physical Therapy Evaluation Rehab PT IP Evaluation Start: 01/15/25 11:05 Freq: ONCE Status: Active Protocol: Document 01/16/25 10:48 KISHOR (Rec: 01/16/25 10:58 KISHOR [id number]) Subjective/History History History Per H&P: Mr. Almendarez is a 54-year-old male who denies significant past medical history. He presented to the ER via EMS due to complaint of some chest discomfort and worsening shortness of breath. Pain began this morning at about 3 AM. States that it is burning across his chest whenever he takes a deep breath. Has had a cough for several days. Denies referred pain into his neck or arm or back. EKG prior to arrival with no ST elevations. During his workup in the ER, patient has tremor and continues to complain of chest discomfort. Stable on room air. No nausea or vomiting. Denies any diarrhea. States he eats 1 meal a day. Also reports drinking 12-24 beers a day. Buys a case of beer daily. Last drink 13 hours prior to arrival to the ER. Tremulous and tachycardic. Workup in the ER with significant abnormalities found. Sodium of 119, effusions on chest imaging, edema in lower extremities, BNP elevated consistent with CHF. Also found to have cirrhosis and emphysema on imaging. Patient interested in staying for help with his alcoholism and multiple comorbidities. Does not go to the doctor and has not been to the doctor in over a decade. Smokes 1 to 2 packs a day. Medicine consulted for admission and further management. Subjective Subjective Pt pleasantly agreeable to mobility assessment. Pt lives with his in a single- story home with no steps. Pt IND with all mobility prior to admission. New diagnosis of cancer in past 12 No months? [facility] How much help from another person do you currently need... Turning from your back to your side None while in a flat bed without using bedrails? Moving from lying on back to sitting on None the side of a flat bed without using bedrails? Moving to and from a bed to a chair ( None including a wheelchair)? Standing up from a chair using your arms None ? (e.g., wheelchair, bedside chair) Walking in hospital room? None Climbing 3-5 steps with a railing? A little Mobility Score 23 Mobility Level [facility] Mobility Calculator Mobility 7 Walk 25 feet or more Rehab PT IP Eval Objective Appearance Patient Behavior Appropriate Patient Orientation Person,Place Difficulty following instructions none Speech Pattern Clear,Appropriate Ambulation Observation IP General Gait Pattern Observation No Deviations/Normal Ambulation Distance (feet) 20 Ambulation Assistive Device None Ambulation Ability Independent Balance Ability to Arise Able, uses arms to help Sitting Balance Steady, safe Standing Balance Narrow stance w/o support Dynamic Sitting Balance Ability Normal Dynamic Standing Balance Ability Good Transfers Bed Transfer Ability Supervision/Stand by Chair Transfer Ability Supervision/Stand by Sit to Stand Bed Transfer Ability Supervision/Stand by Rehab PT IP prob,goals,plan Problems Date of Evaluation: 01/16/25 PT IP Problems Bed Mobility,Transfers,Gait, Balance,Self care,Safety Rehab Potential Rehab Potential Innapropriate for Skilled Therapy Discharge Plan PT Discharge Plan Pt most appropriate to return home d/t mobility being at baseline. Pt not appropriate for skilled acute care PT. Eval Complexity Eval Charge Codes 82368 - Moderate Complexity PHYSICIAN CERTIFICATION: I certify the specified therapy services for Harshad Almendarez are required, authorized, and reviewed every 30 days.
[2025-01-16 11:11] LABS: Hep B Surface Ab, Qual Non Reactive (.); Hepatitis B Core Antibody, IgM Negative (Negative); Hepatitis B Surface Antigen Negative (Negative); Hepatitis C Antibody Non Reactive (Non Reactive)
--- NOTE | 2025-01-16 11:17 | SW/DCPLANNER ---
I spoke w/ this patient regarding discharge plans. Patient is not interested in inpatient rehab OR outpatient rehab services. Patient stated that he would like to return home and does not plan to drink. I did provide patient w/ [facility] Resource List for any future needs/questions. The plan for this patient is to discharge home later today once he receives LifeVest.
[2025-01-16 12:21] LABS: AFP, Tumor Marker 5.4 ng/mL (0.0-8.4)
--- NOTE | 2025-01-16 16:01 | P.PN_ITS ---
Subjective *Date: 01/16/25 *Time: 16:01 Interval history: No acute respiratory vents overnight. Patient continued to remain on room air. Good tolerance to Trelegy inhaler. Pulmonology Exam Inpatient Vital signs and Labs for Last 24 Hours: Temp Pulse Resp BP Pulse Ox O2 Del Method O2 Flow Rate 97.6 F 82 19 123/88 94 L Room Air 2 01/16/25 12:00 01/16/25 12:00 01/16/25 12:00 01/16/25 12:00 01/16/25 12:00 01/16/25 15:00 01/16/25 07:00 Laboratory Results - last 24 hr 01/15/25 16:39: Iron 53, TIBC 327, Iron Saturation [id number], Ferritin 344, Ammonia 13, Tumor Marker AFP 5.4, Hep Bs Antigen Negative, Hep Bs Antibody Non reactive, Hep B Core IgM Ab Negative, Hepatitis C Antibody Non reactive 01/16/25 05:27: WBC 8.1, RBC 4.78, Hgb 16.2, Hct 46.2, MCV 96.7 H, MCH 33.9 H, MCHC 35.1, RDW 12.8, Plt Count 146, MPV 11.9 H, Neut % (Auto) 61.4, Lymph % (Auto) 26.4, [place] % (Auto) 8.7, Eos % (Auto) 2.6, Baso % (Auto) 0.5, Neut # (Auto) 5.0, Lymph # (Auto) 2.2, [place] # (Auto) 0.7, Eos # (Auto) 0.2, Baso # (Auto) 0.0, Sodium 128 L, Potassium 3.8, Chloride 96 L, Carbon Dioxide 33 H, Anion Gap 2.8 L, BUN 15 D, Creatinine 0.60 L, Estimated Creat Clear 170, Estimated GFR 141, Est GFR ( Amer) 171, Glucose 125 H, Calcium 8.7, Total Bilirubin 0.9, Direct Bilirubin 0.3, Conjugated Bilirubin 0.0, Indirect Bilirubin 0.6, Unconjugated Bilirubin 0.5, AST 38, ALT 38, Alkaline Phosphatase 73, Total Protein 6.5, Albumin 3.5, Triglycerides 160 H, Cholesterol 190, LDL Cholesterol Direct 96.55 L, VLDL Cholesterol 32, HDL Cholesterol 50, Cholesterol/HDL Ratio 3.8 H Temp Pulse Resp BP Pulse Ox O2 Del Method O2 Flow Rate 97.6 F 114 H 19 121/88 93 L Room Air 2 01/15/25 08:00 01/15/25 10:00 01/15/25 10:00 01/15/25 10:00 01/15/25 10:00 01/15/25 10:00 01/15/25 08:00 Laboratory Results - last 24 hr 01/14/25 09:29: Urine Opiates Screen Negative, Urine Methadone Screen Negative, Ur Barbituates Screen Negative, Ur Phencyclidine Scrn Negative, Ur Amphetamines Screen Negative, U Benzodiazepines Scrn Negative, Urine Cocaine Screen Negative, U Marijuana (THC) Screen Negative 01/14/25 10:17: Troponin I 0.07 H 01/14/25 13:55: PT 12.2, INR 1.10, APTT 29.1, Phosphorus 4.0, Troponin I 0.08 H 01/14/25 17:20: Sodium 124 L, Potassium 3.4 L D, Chloride 89 L, Carbon Dioxide 32 H, Anion Gap 6.4, BUN 6 L D, Creatinine 0.50 L, Estimated Creat Clear 222, Estimated GFR 175, Est GFR ( Amer) 211, Glucose 154 H, Calcium 8.5 01/15/25 05:35: WBC 7.0 D, RBC 4.73, Hgb 16.0, Hct 45.8, MCV 96.8 H, MCH 33.8 H , MCHC 34.9, RDW 13.1, Plt Count 130 L, MPV 11.4 H, Neut % (Auto) 67.7, Lymph % (Auto) 20.0, [place] % (Auto) 10.4 H, Eos % (Auto) 1.0, Baso % (Auto) 0.6, Neut # (Auto) 4.8, Lymph # (Auto) 1.4, [place] # (Auto) 0.7, Eos # (Auto) 0.1, Baso # (Auto) 0.0, Sodium 126 L, Potassium 3.7, Chloride 91 L, Carbon Dioxide 35 H, Anion Gap 3.7 L, BUN 9 D, Creatinine 0.60 L, Estimated Creat Clear 167, Estimated GFR 141, Est GFR ( Amer) 171, Glucose 121 H D, Calcium 8.3 L, Magnesium 2.2 D, Total Bilirubin 2.6 H, AST 39 D, ALT 35 D, Alkaline Phosphatase 71, Total Protein 6.3, Albumin 3.3 L D, Globulin 3.0, Albumin/Globulin Ratio 1.1 I & O for Labs for Last 24 Hours: Intake & Output 01/13/25 01/14/25 01/15/25 01/16/25 23:59 23:59 23:59 23:59 Intake Total 360 / 860 1250 / 1750 1760 / 1760 Output Total 1300 / 1300 2200 / 2200 2150 / 2150 Balance -940 / -440 -950 / -450 -390 / -390 Weight 200 lb 181 lb 0.587 oz 184 lb 0.5 oz Intake & Output 01/12/25 01/13/25 01/14/25 01/15/25 23:59 23:59 23:59 23:59 Intake Total 360 / 860 500 / 500 Output Total 1300 / 1300 1450 / 1450 Balance -940 / -440 -950 / -950 Weight 200 lb 181 lb 0.587 oz Constitutional: Present moderate distress Head: Present normocephalic and atraumatic ENT: Present normal exam, normal oropharynx and mucous membranes moist Neck: Present normal inspection and full ROM Respiratory: Present respiratory distress, wheezes, crackles, diminished air movement and able to speak in complete sentences Cardiac: Present S1/S2, Tachycardia and radial pulses present GI: Present soft and distention; Absent tenderness or guarding Skin: Present intact; Absent cyanosis or jaundice Neuro: Present alert, awake and oriented x 3 Extremities: Present normal inspection; Absent clubbing or cyanosis Psychiatric: Present normal affect and cooperative Assessment and Plan *Assessment and plan (1) Smoking greater than 30 pack years: Status: Acute Category: Social Hx Code(s): F17.210 - Nicotine dependence, cigarettes, uncomplicated (2) Emphysema lung: Status: Acute Qualifiers: Emphysema type: unspecified Qualified Code(s): J43.9 - Emphysema, unspecified Category: Medical Code(s): J43.9 - Emphysema, unspecified (3) Hilar lymphadenopathy: Status: Acute Category: Medical Code(s): R59.0 - Localized enlarged lymph nodes (4) Mediastinal lymphadenopathy: Status: Acute Category: Medical Code(s): R59.0 - Localized enlarged lymph nodes Plan Mr. Almendarez is a 54-year-old male with no self-reported significant past med history presents to the with worsening respiratory distress chest discomfort and pulmonary was called for further evaluation and management. Patient also reported severe chronic alcohol intake. CTA upon admission no evidence of pulmonary embolism. Calcified pulmonary nodule. Significant lymphadenopathy at station 4R, station 7 and 10 are noted. No lymph node calcifications appreciated. No pulmonary nodules noted except for the left lower lobe calcified nodule.. Minimal emphysematous changes ap preciated. Cirrhotic changes of liver noted. No airspace disease/consolidative changes noted Patient admits symptoms with moderate to severe exertion. Denies any worsening cough or any productive phlegm. Interval update: No acute respiratory vents overnight. With good tolerance to Trelegy inhaler. Continue to remain on room air. Plan: - Continue Trelegy 100 inhaler along with albuterol/DuoNebs 4 times daily as needed. Will follow with a PFT as an outpatient basis to further determine ideal inhaler therapy - For the noted lymphadenopathy, we will follow as an outpatient for EBUS FNA likely to be performed on 01/29/2025 . Can well be reactive from volume overload, cannot completely rule out malignant etiology. - Recommend age-appropriate screening # Thank you for involving pulmonary in this patient care. Will continue to follow.
--- NOTE | 2025-01-16 17:44 | P.DS_ITS ---
General Admission date:: 01/14/25 HPI HPI HPI: Mr. Almendarez is a 54-year-old with hospital admission because of respiratory distress and severe cardiomyopathy. During this evaluation, he did have a CT a of the chest and this did show a lobulated liver consistent with cirrhosis. The patient did not realize that he has cirrhosis. The patient's labs show hemoglobin 16.0, hematocrit 45.8 and platelet count 130,000 (mildly declined sec ondary to hypersplenism). His total bilirubin is 2.6 with AST 39, ALT 35 and alkaline phosphatase 71. He reports no melena, increased abdominal girth or any significant confusion. The patient does drink a case of beer daily. Hospital Course Hospital Course Hospital Course: Harshad Almendarez is a 54-year-old male who presented with chest discomfort and shortness of breath. Found to have new diagnosis of CHF, pleural effusions, volume overload, emphysema, lung nodules, and active alcohol withdrawal. Discussed case with ER physician, request admission for management and further workup of his significant abnormalities as well as his alcohol withdrawal. #HFrEF exacerbation, new diagnosis #Right ventricular failure #Paroxysmal atrial fibrillation #Hyperlipidemia #CAD ? Presented with shortness of breath, BNP 3300, with signs of volume overload. ? Cardiology consulted, s/p [facility] 01/15/2025 without occlusive coronary disease. No stents placed. ? Clinically improved with IV diuresis. ? Discharged with aspirin 81 mg, atorvastatin 40 mg, spironolactone 25 mg, Jardiance 10 mg, Entresto 24/26 mg, metoprolol tartrate 50 mg twice daily, Eliquis 5 mg twice daily. ? Will follow-up with cardiology within 1 week. LifeVest placed. Alcohol abuse disorder Alcohol withdrawal - Monitored on CIWA protocol, Ativan as needed. No significant withdrawal symptoms. 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 Discussed case with GI, recommend outpatient eval for cirrhosis. Likely alcoholic in etiology. Pulmonary nodules Emphysema - CT chest with 2 suspicious lung nodules. Emphysema found. Will initiate DuoNebs every 6 hours as needed - Discussed case with pulmonology, plan for EBUS as an outpatient to evaluate lymph nodes - Initiate Trelegy 100 inhaler Tobacco use disorder: Smokes 2 packs a day. Initiated on 1 patch daily. Total time spent on discharge: 32 minutes on chart review, counseling, docu mentation, and direct care with patient. Exam Data for Last 24 hours Vital signs and Labs for Last 24 Hours: Temp Pulse Resp BP Pulse Ox O2 Del Method O2 Flow Rate 97.6 F 82 19 123/88 94 L Room Air 2 01/16/25 12:00 01/16/25 12:00 01/16/25 12:00 01/16/25 12:00 01/16/25 12:00 01/16/25 17:00 01/16/25 07:00 Laboratory Results - last 24 hr 01/15/25 16:39: Ferritin 344, Tumor Marker AFP 5.4, Hep Bs Antigen Negative, Hep Bs Antibody Non reactive, Hep B Core IgM Ab Negative, Hepatitis C Antibody Non reactive 01/16/25 05:27: WBC 8.1, RBC 4.78, Hgb 16.2, Hct 46.2, MCV 96.7 H, MCH 33.9 H, MCHC 35.1, RDW 12.8, Plt Count 146, MPV 11.9 H, Neut % (Auto) 61.4, Lymph % (Auto) 26.4, [place] % (Auto) 8.7, Eos % (Auto) 2.6, Baso % (Auto) 0.5, Neut # (Auto) 5.0, Lymph # (Auto) 2.2, [place] # (Auto) 0.7, Eos # (Auto) 0.2, Baso # (Auto) 0.0, Sodium 128 L, Potassium 3.8, Chloride 96 L, Carbon Dioxide 33 H, Anion Gap 2.8 L, BUN 15 D, Creatinine 0.60 L, Estimated Creat Clear 170, Estimated GFR 141, Est GFR ( Amer) 171, Glucose 125 H, Calcium 8.7, Total Bilirubin 0.9, Direct Bilirubin 0.3, Conjugated Bilirubin 0.0, Indirect Bilirubin 0.6, Unconjugated Bilirubin 0.5, AST 38, ALT 38, Alkaline Phosphatase 73, Total Protein 6.5, Albumin 3.5, Triglycerides 160 H, Cholesterol 190, LDL Cholesterol Direct 96.55 L, VLDL Cholesterol 32, HDL Cholesterol 50, Cholesterol/HDL Ratio 3.8 H I & O for Last 24 hours: Intake & Output 01/13/25 01/14/25 01/15/25 01/16/25 23:59 23:59 23:59 23:59 Intake Total 360 / 860 1250 / 1750 1760 / 1760 Output Total 1300 / 1300 2200 / 2200 2150 / 2150 Balance -940 / -440 -950 / -450 -390 / -390 Weight 90.718 kg 82.117 kg 83.475 kg Constitutional Constitutional: no acute distress *Routine HEENT Exam Head: Present normocephalic Eye: Present EOMI and PERRL ENT: Present mucous membranes moist *Routine Neck Exam Neck: Present supple; Absent lymphadenopathy *Routine Respiratory Exam Respiratory: Present CTA bilaterally *Routine Cardiovascular Exam Cardiovascular: Present RRR *Routine Abdominal Exam Abdominal: Present soft and normoactive bowel sounds; Absent tenderness *Routine Extremities Exam Extremities: Absent cyanosis, clubbing or edema *Routine Skin Exam Skin: Present warm; Absent rash *Routine Neurological Exam Neurological: Present alert and oriented X3 Results Data Completed and Pending Labs on day of discharge: Labs from last 24 hours 01/16/25 01/15/25 05:27 16:39 WBC 8.1 RBC 4.78 Hgb 16.2 Hct 46.2 MCV 96.7 H MCH 33.9 H MCHC 35.1 RDW 12.8 Plt Count 146 MPV 11.9 H Neut % (Auto) 61.4 Lymph % (Auto) 26.4 [place] % (Auto) 8.7 Eos % (Auto) 2.6 Baso % (Auto) 0.5 Neut # (Auto) 5.0 Lymph # (Auto) 2.2 [place] # (Auto) 0.7 Eos # (Auto) 0.2 Baso # (Auto) 0.0 Sodium 128 L Potassium 3.8 Chloride 96 L Carbon Dioxide 33 H Anion Gap 2.8 L BUN 15 D Creatinine 0.60 L Estimated Creat Clear 170 Estimated GFR 141 Est GFR ( Amer) 171 Glucose 125 H Calcium 8.7 Ferritin 344 Total Bilirubin 0.9 Direct Bilirubin 0.3 Conjugated Bilirubin 0.0 Indirect Bilirubin 0.6 Unconjugated Bilirubin 0.5 AST 38 ALT 38 Alkaline Phosphatase 73 Total Protein 6.5 Albumin 3.5 Triglycerides 160 H Cholesterol 190 LDL Cholesterol Direct 96.55 L VLDL Cholesterol 32 HDL Cholesterol 50 Cholesterol/HDL Ratio 3.8 H Tumor Marker AFP 5.4 Hep Bs Antigen Negative Hep Bs Antibody Non reactive Hep B Core IgM Ab Negative Hepatitis C Antibody Non reactive DS: Diagnosis Discharge Diagnosis (1) Smoking greater than 30 pack years: Status: Acute Code(s): F17.210 - Nicotine dependence, cigarettes, uncomplicated (2) Emphysema lung: Status: Acute Code(s): J43.9 - Emphysema, unspecified Qualifiers: Emphysema type: unspecified Qualified Code(s): J43.9 - Emphysema, unspecified (3) Hilar lymphadenopathy: Status: Acute Code(s): R59.0 - Localized enlarged lymph nodes (4) Mediastinal lymphadenopathy: Status: Acute Code(s): R59.0 - Localized enlarged lymph nodes Meds Home Medications and Allergies Home Medications ?Medication ?Instructions ?Recorded ?Confirmed ?Type apixaban 5 mg tablet (Eliquis) 5 mg PO BID 30 days #60 tabs 01/16/25 01/30/25 Rx aspirin 81 mg tablet,delayed 81 mg PO DAILY 30 days #3 0 tabs 01/16/25 01/30/25 Rx release atorvastatin 40 mg tablet 40 mg PO HS 30 days #30 tabs 01/16/25 01/30/25 Rx empagliflozin 10 mg tablet 10 mg PO DAILY 30 days #30 tabs 01/16/25 01/30/25 Rx (Jardiance) folic acid 1 mg tablet 1 mg PO DAILY 30 days #30 ta bs 01/16/25 01/30/25 Rx multivitamin with folic acid 400 1 tab PO 1700 #30 tab s 01/16/25 01/30/25 Rx mcg tablet (Tab-A-Nicole) sacubitril 24 mg-valsartan 26 mg 1 tab PO BID 30 days #60 tabs 01/16/25 01/30/25 Rx tablet (Entresto) spironolactone 25 mg tablet 25 mg PO DAILY 30 days #30 tabs 01/16/25 01/30/25 Rx thiamine mononitrate (vit B1) 100 100 mg PO DAILY 30 d ays #30 tabs 01/16/25 01/30/25 Rx mg tablet metoprolol tartrate 100 mg tablet 100 mg PO BID 30 day s #60 tabs 01/24/25 01/30/25 Rx melatonin 5 mg tablet 5 mg PO HS PRN sleep #30 tab s 01/29/25 01/30/25 Rx torsemide 40 mg tablet 40 mg PO BID #60 tabs 01/30/25 Rx umeclidinium 62.5 mcg-vilanterol 1 inh inhalation [place] Y 90 days 01/29/25 01/30/25 Rx 25 mcg/actuation powdr for #180 ea inhalation (Anoro Ellipta) amiodarone 200 mg tablet 400 mg (2 x 200 mg) PO BID 3 0 days 01/31/25 Rx #120 tabs New Prescriptions to Start Prescriptions: apixaban [Eliquis] Marisol,Miguel aspirin Marisol,Miguel atorvastatin Marisol,Miguel empagliflozin [Jardiance] Marisol,Miguel folic acid Marisol,Miguel multivitamin with folic acid [Tab-A-Nicole] Marisol,Miguel sacubitril-valsartan [Entresto] Marisol,Miguel spironolactone Marisol,Miguel thiamine mononitrate (vit B1) Marisol,Miguel Allergies Allergy/AdvReac Type Severity Reaction Status Date / Time No Known Allergies Allergy Verified 01/30/25 09:53 Discharge Plan Disposition Patient Disposition: Home, Self-Care Condition: Fair Follow up Plan Follow up with: Mitali Delvalle APRN [Nurse Practitioner, Cardiology] - 01/24/25 1:45 pm Dat Guajardo MD [Referring, Medical] - 02/08/25 2:00 pm Referral Note: please arrive 15-20 minutes early and please bring insurance card and medicines Corazon Chand MD [Physician, Pulmonology] - 02/12/25 Referral Note: please call for appointment Prescriptions/Medication Reconciliation: New atorvastatin 40 mg Tablet 40 mg PO HS 30 Days Qty: 30 0RF aspirin 81 mg Tablet,Delayed Release (Dr/Ec) 81 mg PO DAILY 30 Days Qty: 30 0RF Eliquis 5 mg Tablet 5 mg PO BID 30 Days Qty: 60 0RF Jardiance 10 mg Tablet 10 mg PO DAILY 30 Days Qty: 30 0RF folic acid 1 mg Tablet 1 mg PO DAILY 30 Days Qty: 30 0RF multivitamin with folic acid [Tab-A-Nicole] 400 mcg Tablet 1 tab PO 1700 Qty: 30 0RF spironolactone 25 mg Tablet 25 mg PO DAILY 30 Days Qty: 30 0RF thiamine mononitrate (vit B1) 100 mg Tablet 100 mg PO DAILY 30 Days Qty: 30 0RF Entresto 24-26 mg Tablet 1 tab PO BID 30 Days Qty: 60 0RF No Action torsemide 40 mg tablet 40 mg PO BID Qty: 60 2RF melatonin 5 mg tablet 5 mg PO HS PRN (Reason: sleep) Qty: 30 0RF metoprolol tartrate 100 mg tablet 100 mg PO BID 30 Days Qty: 60 5RF umeclidinium-vilanterol [Anoro Ellipta] 62.5-25 mcg/actuation blister with device 1 inh inhalation DAILY 90 Days Qty: 180 2RF amiodarone 200 mg tablet 400 mg PO BID 30 Days Qty: 120 3RF Problem Reconciliation Problems Reviewed?: Yes Patient Discharge Instructions Patient Instructions: Alcohol and Stress: There are Safer Ways to [place], DI for Heart Failure, DI for Cardiac Catheterization, DI for Alcohol Use Disorder, DI for Hyponatremia, Surgical Site Infection, Moderate Sedation, DI for Post- Surgical Bleeding Print Language: Romanian Providers Primary Care Provider: Provider,Referral Admit Provider: Edson Mcrae Attending Provider: Edson Mcrae
--- NOTE | 2025-01-18 10:24 | SW/DCPLANNER ---
Spoke with patient stated that he is doing well. Patient stated that he is aware of his upcoming appointments. Patient stated that he was able to get his medicine picked up. Patient stated that can he have too much water. I suggested patient to not drink more than 64 oz a day. Patient stated that he has no questions or concerns. Earl HUDSON Center Manager
[2025-01-21 21:08] LABS: Alpha-1-Antitrypsin 254 mg/dL (101-187)
--- NOTE | 2025-02-02 13:38 | PEERSUPPORT ---
Peer Support Note Patient Information Patient Information: DOS: 02/02/2025 Ps f/u Ps spoke with James, stated pt has refrain from alcohol. Attending follow up appointments. Disclosed pt had issues with insomnia, but melatonin is helpful suggested by primary doctor. Also disclosed some moodiness. Ps educated to symptoms of alcohol use disorder with recovery experiencing emotional distress that through time and practice can subside. Ps also discussed possible replacements for drinks with healthy options: lemonades or sweet teas with added fruits, especially for holiday gatherings to support sobriety.
== END 2025-01-16 18:18 | disposition home or self-care (01) ==
LOC: ER 07:28 → 2ND 12:18
PROVIDERS: Internal Medicine; Internal Medicine Gastroenterology; Nurse Practitioner Family; Admitting Provider Internal Medicine Adolescent Medicine; Emergency Provider Student in an Organized Health Care Education/Training Program; Visit Provider Internal Medicine Adolescent Medicine
PROC: 4A023N7 Measurement of Cardiac Sampling and Pressure, Left Heart, Percutaneous Approach (ICD-10-PCS; CPT 93452; principal; 2025-01-15 13:00)
DX: F10.130 Alcohol abuse with withdrawal, uncomplicated (principal); I25.119 Atherosclerotic heart disease of native coronary artery with unspecified angina pectoris; I48.0 Paroxysmal atrial fibrillation; I50.21 Acute systolic (congestive) heart failure; K70.30 Alcoholic cirrhosis of liver without ascites; E87.1 Hypo-osmolality and hyponatremia; J43.9 Emphysema, unspecified; E83.42 Hypomagnesemia; R91.8 Other nonspecific abnormal finding of lung field; J90 Pleural effusion, not elsewhere classified; K80.20 Calculus of gallbladder without cholecystitis without obstruction; I45.10 Unspecified right bundle-branch block; I44.4 Left anterior fascicular block; I48.92 Unspecified atrial flutter; R59.0 Localized enlarged lymph nodes; I42.6 Alcoholic cardiomyopathy; E78.5 Hyperlipidemia, unspecified; F17.210 Nicotine dependence, cigarettes, uncomplicated; I25.2 Old myocardial infarction; Z79.82 Long term (current) use of aspirin; Z79.84 Long term (current) use of oral hypoglycemic drugs; Z79.01 Long term (current) use of anticoagulants; Z79.899 Other long term (current) drug therapy
CPT/HCPCS: 36415; 71046; 71275; 80048; 80053; 80061; 80076; 80307; 81001; 82103; 82104; 82105; 82140; 82728; 83540; 83550; 83735; 83880; 84100; 84484; 85025; 85378; 85610; 85730; 86705; 86706; 86803; 87340; 93005; 93306; 93458; 94640; 96372; 96374; 96375; 96376; 97162; 97166; 99152; 99291; C1725; C1769; G0378; J1200; J1644; J1650; J1938; J2003; J2250; J2560; J3010; J3360; J3411; J3475; J7040; J7120; Q9957; Q9967

== ENCOUNTER 2025-01-23 09:58 | Outpatient (CLI) | payer OTHER, SELFPAY | END 2025-01-23 23:59 | disposition home or self-care (01) | LOC: PREOP 09:58 | PROVIDERS: PCP Emergency Medicine; Visit Provider Internal Medicine Pulmonary Disease | DX: R69 Illness, unspecified (principal) ==

== ENCOUNTER 2025-01-29 13:47 | Outpatient (CLI) | payer OTHER, SELFPAY ==
[2025-01-29 15:11] LABS: Red Blood Count 4.76 M/mm3 (4.60-6.20)
[2025-01-29 15:12] LABS: Basophils # 0.1 K/mm3 (0-0.2); Basophils % 1.3 % (0.1-2.0); Eosinophils # 0.3 Kmm3 (0.0-0.4); Eosinophils % 3.3 % (0.1-12.0); Hematocrit 45.4 % (42.0-52.0); Hemoglobin 15.7 g/dL (14.1-18.0); Immature Granulocytes # 0.03 10^3uL; Immature Granulocytes % 0.4 %; Lymphocytes # 1.7 K/mm3 (0.7-4.5); Lymphocytes % 21.4 % (10-50); Mean Corpuscular HGB Conc 34.6 g/dL (31.8-35.4); Mean Corpuscular Volume 95.4 fl (80-94); Mean Platelet Volume 10.5 fl (7.4-10.4); Monocytes # 0.7 K/mm3 (0.1-1.0); Monocytes % 8.8 % (1.7-9.3); Neutrophils # 5.2 K/mm3 (1.8-7.8); Neutrophils % 64.8 % (37.0-80.0); Nucleated Red Blood Cells # 0 10^3/uL; Nucleated Red Blood Cells % 0 %; Platelet Count 349 K/mm3 (142-424); Red Cell Distribution Width-SD 42.5 fL
[2025-01-29 15:58] LABS: Anion Gap 10.2 mEq/L (5-15); Blood Urea Nitrogen 9 mg/dl (9-20); Calcium 9.3 mg/dl (8.4-10.2); Carbon Dioxide 30 mmol/L (22.0-30.0); Chloride 93 mmol/L (98-107); Estimated Glomerular Filt Rate 141 ml/min (>60); GFR (African American) 171 ML/MIN (>60); Glucose 154 mg/dl (74-100); Potassium 4.2 mmoL/L (3.5-5.1); Sodium 129 mmol/L (136-145)
== END 2025-01-29 23:59 | disposition home or self-care (01) ==
PROVIDERS: PCP Emergency Medicine; Visit Provider Internal Medicine
DX: E83.42 Hypomagnesemia (principal); I50.21 Acute systolic (congestive) heart failure; F17.200 Nicotine dependence, unspecified, uncomplicated
CPT/HCPCS: 36415; 80048; 85025

== ENCOUNTER 2025-01-30 09:25 | Day surgery (SDC) | payer OTHER, SELFPAY ==
[2025-01-30] VITALS (8 sets, daily range): BP systolic 98–121; BP diastolic 59–88; PULSE 57–89; RESP 14–18; TEMP 36.1–36.4; O2SAT 91–97; BMI 28.3
--- NOTE | 2025-01-30 09:50 | ECG_ITS ---
APPROVED REPORT Exam: Resting ECG HR:155 bpm ECG Measurements Heart Rate 155 AXES QRSd 101 QRS -55 QT 283 T -89 QTc 370 Conclusion ATRIAL FLUTTER/TACHYCARDIA WITH RAPID VENTRICULAR RESPONSE POSSIBLE RIGHT VENTRICULAR CONDUCTION DELAY [RSR (QR) IN V1/V2] LEFT ANTERIOR FASCICULAR BLOCK [QRS AXIS <= -45, QR IN I, RS IN II] ST DEVIATION AND MODERATE T-WAVE ABNORMALITY, CONSIDER LATERAL ISCHEMIA [-0.1+ mV T-WAVE IN I/aVL/V5/V6] ST DEVIATION AND MODERATE T-WAVE ABNORMALITY, CONSIDER INFERIOR ISCHEMIA [-0.1+ mV T-WAVE IN II/aVF] CRITICAL TEST RESULT UNCONFIRMED REPORT Electronically signed by : Jcarlos Hill MD 01/31/2025 07:45:29
[2025-01-30 10:10] LABS: Basophils # 0.1 K/mm3 (0-0.2); Basophils % 0.9 % (0.1-2.0); Eosinophils # 0.3 Kmm3 (0.0-0.4); Eosinophils % 2.7 % (0.1-12.0); Hematocrit 45.5 % (42.0-52.0); Immature Granulocytes # 0.03 10^3uL; Immature Granulocytes % 0.3 %; Lymphocytes # 1.8 K/mm3 (0.7-4.5); Lymphocytes % 19.5 % (10-50); Mean Corpuscular HGB Conc 35.2 g/dL (31.8-35.4); Mean Corpuscular Hemoglobin 33.5 pg (27.0-31.2); Mean Corpuscular Volume 95.2 fl (80-94); Mean Platelet Volume 10.3 fl (7.4-10.4); Monocytes # 0.8 K/mm3 (0.1-1.0); Monocytes % 8.4 % (1.7-9.3); Neutrophils # 6.3 K/mm3 (1.8-7.8); Neutrophils % 68.2 % (37.0-80.0); Nucleated Red Blood Cells # 0 10^3/uL; Nucleated Red Blood Cells % 0 %; Platelet Count 370 K/mm3 (142-424); Red Blood Count 4.78 M/mm3 (4.60-6.20); Red Cell Distribution Width 12.2 % (11.5-17.5); Red Cell Distribution Width-SD 43.2 fL; White Blood Count 9.3 K/mm3 (4.8-10.8)
[2025-01-30 10:18] LABS: Blood Urea Nitrogen 9 mg/dl (9-20); Calcium 9.1 mg/dl (8.4-10.2); Carbon Dioxide 29 mmol/L (22.0-30.0); Chloride 93 mmol/L (98-107); Creatinine Clearance Estimated 172 mL/min (50-200); Estimated Glomerular Filt Rate 141 ml/min (>60); GFR (African American) 171 ML/MIN (>60); Glucose 131 mg/dl (74-100); Sodium 127 mmol/L (136-145)
[2025-01-30] MEDS: LACTATED RINGERS 1000ML 1,000 ML 50 ML IV (10:18)
[2025-01-30 10:19] LABS: INR 1.24 (0.9-1.1); Prothrombin Time 13.5 seconds (10.1-12.5)
--- NOTE | 2025-01-30 10:36 | P.PNANES_ITS ---
[facility] Disclaimer: The information contained in this section may have been updated after the patient was seen, as this information can be updated by other users. Medical History Paroxysmal atrial flutter Paroxysmal atrial fibrillation Non-STEMI (non-ST elevated myocardial infarction) Cardiomyopathy Angina pectoris Acute HFrEF (heart failure with reduced ejection fraction) Mediastinal lymphadenopathy Hilar lymphadenopathy Smoking greater than 30 pack years Surgical History History of cardiac cath History of hand surgery Family History Other Family history of COPD (chronic obstructive pulmonary disease) Family history of cancer Social History (Updated 01/30/25 @ 10:02 by Oneyda Madrid RN) Smoking Status: Current every day smoker alcohol intake: former substance use type: denies use current occupational status: unemployed and disabled Travel in the last 8 weeks?: None caffeine: No [facility] Anesthesia Checklist Patient Identification Patient Identification: Arm Band and Verbal (Name & ) Structural Data Admitted From: Home Planned Operative Procedure/s: CARSON Verified Documents: Surgical Consent NPO Status Verified Time NPO: 00:00 Chart Verification Results Verified: ECG Additional verifications Anesthesia Reactions: No Airway Assessment Mallampati Score:: Class II C-Spine Mobility Assessed: Yes TMJ Mobility Assessed: Yes Dentition: Edentulous Neurological Assessment Level of Consciousness: Awake, Alert and Appropriate Hx Seizures: No Numbness or tingling in extremities: No Anesthesia Plan Anesthesia Risk discussed: Yes Anesthesia Plan: Verified ASA Class: IV Anesthesia Type: MAC
--- NOTE | 2025-01-30 12:15 | SUR.OPER ---
PT CARDIOVERTED AT 150J PER DR GUEVARA. PT CARDIOVERTED TO NSR.
[2025-01-30] MEDS: DEFINITY US ECHO CONTRAST 2ML INJ 2 MG IV (14:22)
== END 2025-01-30 13:20 | disposition home or self-care (01) ==
PROVIDERS: PCP Emergency Medicine; Visit Provider Internal Medicine
PROC: (CPT 93312; principal; 2025-01-30 11:00)
DX: I48.92 Unspecified atrial flutter (principal); I48.0 Paroxysmal atrial fibrillation; I50.21 Acute systolic (congestive) heart failure; I42.9 Cardiomyopathy, unspecified; I25.2 Old myocardial infarction; R60.1 Generalized edema; F17.210 Nicotine dependence, cigarettes, uncomplicated; Z79.82 Long term (current) use of aspirin; Z79.01 Long term (current) use of anticoagulants; Z79.899 Other long term (current) drug therapy; Z79.84 Long term (current) use of oral hypoglycemic drugs
CPT/HCPCS: 80048; 85025; 85610; 92960; 93005; 93270; 93312; 93319; J2003; J2371; J2704; J7120; Q9957

== ENCOUNTER 2025-02-13 15:11 | Outpatient (CLI) | payer OTHER, SELFPAY ==
[2025-02-13 16:01] LABS: Basophils # 0.1 K/mm3 (0-0.2); Basophils % 0.8 % (0.1-2.0); Eosinophils # 0.5 Kmm3 (0.0-0.4); Eosinophils % 5.2 % (0.1-12.0); Hematocrit 50.6 % (42.0-52.0); Hemoglobin 16.9 g/dL (14.1-18.0); Immature Granulocytes # 0.02 10^3uL; Immature Granulocytes % 0.2 %; Lymphocytes # 2.4 K/mm3 (0.7-4.5); Lymphocytes % 27.6 % (10-50); Mean Corpuscular HGB Conc 33.4 g/dL (31.8-35.4); Mean Corpuscular Hemoglobin 31.5 pg (27.0-31.2); Mean Corpuscular Volume 94.2 fl (80-94); Mean Platelet Volume 11.4 fl (7.4-10.4); Monocytes # 0.8 K/mm3 (0.1-1.0); Monocytes % 9.8 % (1.7-9.3); Neutrophils # 4.8 K/mm3 (1.8-7.8); Neutrophils % 56.4 % (37.0-80.0); Nucleated Red Blood Cells # 0 10^3/uL; Nucleated Red Blood Cells % 0 %; Platelet Count 209 K/mm3 (142-424); Red Blood Count 5.37 M/mm3 (4.60-6.20); Red Cell Distribution Width 12.5 % (11.5-17.5); Red Cell Distribution Width-SD 43.7 fL; White Blood Count 8.6 K/mm3 (4.8-10.8)
[2025-02-13 16:55] LABS: Alanine Aminotransferase 39 U/L (12-78); Albumin Level 4.2 g/dl (3.5-5.0); Alkaline Phosphatase 76 U/L (38-126); Anion Gap 11.9 mEq/L (5-15); Aspartate Amino Transferase 34 U/L (17-59); Bilirubin,Direct 0.2 mg/dl (0.0-0.4); Bilirubin,Indirect 0.7 mg/dL (0.0-0.9); Bilirubin,Total 0.9 mg/dl (0.2-1.3); Bilirubin,Unconjugated 0.6 mg/dL (0.0-1.1); Blood Urea Nitrogen 16 mg/dl (9-20); Calcium 9.6 mg/dl (8.4-10.2); Carbon Dioxide 32 mmol/L (22.0-30.0); Chloride 95 mmol/L (98-107); Chol/HDL Ratio 3.6 (1-3.5); Cholesterol 138 mg/dl (140-200); Estimated Glomerular Filt Rate 89 ml/min (>60); GFR (African American) 107 ML/MIN (>60); Glucose 127 mg/dl (74-100); HDL Cholesterol 38 mg/dl (40-60); Potassium 3.9 mmoL/L (3.5-5.1); Sodium 135 mmol/L (136-145); Total Protein,Serum 7.3 g/dl (6.3-8.2); Triglycerides 106 mg/dl (30-150); VLDL Cholesterol 21 mg/dL (0-40)
[2025-02-13 17:06] LABS: Direct LDL Cholesterol 70.14 mg/dL (100-129)
[2025-02-13 17:13] LABS: Free T4 (Free Thyroxine) 1.41 ng/dl (0.78-2.19)
[2025-02-13 17:28] LABS: Thyroid Stimulating Hormone 5.19 uIU/mL (0.465-4.68)
== END 2025-02-13 23:59 | disposition home or self-care (01) ==
LOC: LAB 15:12
PROVIDERS: PCP Emergency Medicine; Visit Provider Internal Medicine
DX: E87.1 Hypo-osmolality and hyponatremia (principal); E83.42 Hypomagnesemia; I50.21 Acute systolic (congestive) heart failure; I21.4 Non-ST elevation (NSTEMI) myocardial infarction
CPT/HCPCS: 36415; 80048; 80061; 80076; 83735; 84439; 84443; 85025

== ENCOUNTER 2025-03-01 07:41 | Outpatient (CLI) | payer OTHER, SELFPAY ==
--- OUTSIDE RECORDS SUMMARY | 2025-02-12 01:07 | XMS_ITS | Continuity of Care Document ---
Author Organization [facility] Phone Care Team Providers Care Photo Checker And Assembler Name Role Phone GARCIA HWITAKER Admitting GARCIA WHITAKER Unavailable GARCIA WHITAKER Primary Attending GARCIA WHITAKER Primary Care RESULTS Patient: GREG MCKENZIE Date of : November 13 3 LABORATORY RESULTS ORDER 100: HEMOGLOBIN A1C (L OINC: 4548-4) ORDER DATE: February 08, 2025 6:40:00 PM UTC Specimen Source: Whole Blood Specimen Type: Whole blood s ample PERFORMING LAB: [address] [id number] Result Comment: Final Result Date: February 08, 2025 9:35:00 PM UTC (TECH: HC) LOINC TEST FLAG RESULT REFERENCE RANGE UPDA CHACHA BY 4548-4 Hemoglobin A1c/Hemoglobin.tota l in Blood H 6.8 % 4.5 % - 6.2 % February 08, 2025 9:35:00 PM UTC (TECH: HC) 71534-0 Glucose mean value [Mass/volume] in Blood Estimated from glycated hemoglobin H 148 mg/dl 82 mg/dl - 131 mg/dl February 08, 2025 9:35:00 PM UTC (TECH: HC) ORDER 200: PROSTATE SPECIFIC AG PSA (LOINC: 2857-1) ORDER DATE: February 08, 2025 6:40:00 PM UTC Specimen Source: Serum/Plasm a Specimen Type: Acellular blo od (serum or plasma) specimen PERFORMING LAB: [address] [id number] Result Comment: Final Result Date: February 08, 2025 9:50:00 PM UTC (TECH: HC) LOINC TEST FLAG RESULT REFERENCE RANGE UPDA CHACHA BY 2857-1 Prostate specific Ag [Mass/volume] in Serum or Plasma N 0.75 ng/mL 0.0 ng/mL - 4.0 ng/mL February 08, 2025 9:50:00 PM UTC (TECH: [employer]) ORDER 300: THYROID STIMULATI NG HORMONE (LOINC: 3016-3) ORDER DATE: February 08, 2025 6:40:00 PM UTC Specimen Source: Serum/Plasm a Specimen Type: Acellular blo od (serum or plasma) specimen PERFORMING LAB: [address] [id number] Result Comment: Final Result Date: February 08, 2025 9:50:00 PM UTC (TECH: [employer]) LOINC TEST FLAG RESULT REFERENCE RANGE UPDA CHACHA BY 3016-3 Thyrotropin [Units/volume] in Serum or Plasma H 5.19 mIU/mL 0.34 mIU/mL - 4.80 mIU/mL February 08, 2025 9:50:00 PM UTC (TECH: [employer]) ORDER 400: COMP METABOLIC PA XUAN (LOINC: 69654-1) ORDER DATE: February 08, 2025 6:40:00 PM UTC Specimen Source: Serum/Plasm a Specimen Type: Acellular blo od (serum or plasma) specimen PERFORMING LAB: [address] [id number] Result Comment: Final Result Date: February 08, 2025 9:50:00 PM UT (TECH: [employer]) LOINC TEST FLAG RESULT REFERENCE RANGE UPDA CHACHA BY 2951-2 Sodium [Moles/volume ] in Serum or Plasma L 132 mmol/L 136 mmol/L - 145 mmol/L February 08, 2025 9:50:00 PM UTC (TECH: [employer]) 2823-3 Potassium [Moles/volume] in Serum or Plasma N 3.5 mmol/L 3.5 mmol/L - 5.1 mmol/L February 08, 2025 9:50:00 PM UTC (TECH: [employer]) 2075-0 Chloride [Moles/volu me] in Serum or Plasma L 93 mmol/L 98 mmol/L - 107 mmol/L February 08, 2025 9:50:00 PM UTC (TECH: [employer]) 2027-9 Carbon dioxide, tota l [Moles/volume] in Serum or Plasma N 31 mmol/L 21 mmol/L - 32 mmol/L February 08, 2025 9:50:00 PM UT (TECH: [employer]) 96899-8 Anion gap 3 in Serum or Plasma N 8.0 February 08, 2025 9:50:00 PM UTC (TECH: [employer]) 2345-7 Glucose [Mass/volume ] in Serum or Plasma H 196 mg/dL 70 mg/dL - 110 mg/dL February 08, 2025 9:50:00 PM UTC (TECH: [employer]) 3094-0 Urea nitrogen [Mass/volume] in Serum or Plasma H 20 mg/dL 7 mg/dL - 18 mg/dL February 08, 2025 9:50:00 PM UT (TECH: [employer]) 2160-0 Creatinine [Mass/volume] in Serum or Plasma N 1.1 mg/dL 0.8 mg/dL - 1.3 mg/dL February 08, 2025 9:50:00 PM UT (TECH: [employer]) 3097-3 Urea nitrogen/Creatinine [Mass Ratio] in Serum or Plasma N 18.2 - February 08, 2025 9:50:00 PM UT (TECH: [employer]) 59691-0 Glomerular filtratio n rate/1.73 sq M.predicted by Creatinine-based formula (MDRD) N 81 mL/min >60 February 08, 2025 9:50:00 PM UT (TECH: [employer]) 20156-5 Osmolality of Serum or Plasma by calculated by sum of electrolytes N 283 mosm/kg 275 mosm/kg - 301 mosm/kg February 08, 2025 9:50:00 PM UT (TECH: [employer]) 2885-2 Protein [Mass/volume ] in Serum or Plasma N 8.0 g/dL 6.4 g/dL - 8.2 g/dL February 08, 2025 9:50:00 PM UT (TECH: [employer]) 1751-7 Albumin [Mass/volume ] in Serum or Plasma L 3.2 g/dL 3.4 g/dL - 5.0 g/dL February 08, 2025 9:50:00 PM UT (TECH: [employer]) 93917-4 Calcium [Mass/volume ] in Serum or Plasma N 9.6 mg/dL 8.5 mg/dL - 10.1 mg/dL February 08, 2025 9:50:00 PM UT (TECH: [employer]) 02250-8 Calcium [Mass/volume ] corrected for total protein in Serum or Plasma H 10.2 mg/dL 8.5 mg/dL - 10.1 mg/dL February 08, 2025 9:50:00 PM UT (TECH: HC) 1975-2 Bilirubin.total [Mass/volume] in Serum or Plasma N 0.6 mg/dL 0.4 mg/dL - 1.5 mg/dL February 08, 2025 9:50:00 PM UT (TECH: HC) 1920-8 Aspartate aminotransferase [Enzymatic activity/volume] in Serum or Plasma N 34 U/L 15 U/L - 37 U/L February 08, 2025 9:50:00 PM UT (TECH: HC) 1742-6 Alanine aminotransferase [Enzymatic activity/volume] in Serum or Plasma N 52 U/L 12 U/L - 78 U/L February 08, 2025 9:50:00 PM UT (TECH: [employer]) 6768-6 Alkaline phosphatase [Enzymatic activity/volume] in Serum or Plasma N 97 U/L 50 U/L - 170 U/L February 08, 2025 9:50:00 PM UT (TECH: [employer]) ORDER 500: LIPID PANEL (LOIN C: 45466-4) ORDER DATE: February 08, 2025 6:40:00 PM UT Specimen Source: Serum/Plasm a Specimen Type: Acellular blo od (serum or plasma) specimen PERFORMING LAB: [address] [id number] Result Comment: Final Result Date: February 08, 2025 9:50:00 PM [facility] (TECH: [employer]) LOINC TEST FLAG RESULT REFERENCE RANGE UPDA CHACHA BY 2571-8 Triglyceride [Mass/volume] in Serum or Plasma N 82 mg/dL 20 mg/dL - 200 mg/dL February 08, 2025 9:50:00 PM UT (TECH: HC) 2092-3 Cholesterol [Mass/volume] in Serum or Plasma N 131 mg/dL 0 mg/dL - 200 mg/dL February 08, 2025 9:50:00 PM UT (TECH: HC) 2084-9 Cholesterol in HDL [Mass/volume] in Serum or Plasma L 37 mg/dL 60 mg/dL February 08, 2025 9:50:00 PM UT (TECH: HC) 66645-7 Cholesterol in LDL [Mass/volume] in Serum or Plasma by calculation L 78 mg/dL 100 mg/dL February 08, 2025 9:50:00 PM UT (TECH: HC) 2095-8 Cholesterol in HDL/Cholesterol.tota l [Mass Ratio] in Serum or Plasma N 4 - 5 February 08, 2025 9:50:00 PM UTC (TECH: HC) ORDER 600: T4 FREE (LOINC: 3 024-7) ORDER DATE: February 08, 2025 9:50:00 PM UT Specimen Source: Serum/Plasm a Specimen Type: Acellular blo od (serum or plasma) specimen PERFORMING LAB: [address] [id number] Result Comment: Final Result Date: February 08, 2025 10:12:00 PM UT (TECH: HC) LOINC TEST FLAG RESULT REFERENCE RANGE UPDA CHACHA BY 3024-7 Thyroxine (T4) free [Mass/volume] in Serum or Plasma N 1.16 ng/dl 0.76 ng/dl - 1.46 ng/dl February 08, 2025 10:12:00 PM UT (TECH: HC) LABORATORY NARRATIVE RESULTS Information is not available RADIOLOGY RESULTS Information is not available PATHOLOGY NARRATIVE RESULTS Information is not available MICROBIOLOGY RESULTS No Micro Labs/Results Exist for Patient BLOOD ADMIN RESULTS Information is not available MEDICATIONS HOME MEDICATIONS Status RXNORM NDC Medication Dose Route Frequency Dates Comments Reported By Updated By Drug Treatment Unknown DISCHARGE MEDICATIONS Status RXNORM NDC Medication Dose Route Frequency Dates Comments Physician Updated By No Discharge Medication Info rmation Available INPATIENT MEDICATIONS Status RXNORM NDC Medication Dose Route Frequency Rat e Quantity Dates Comments Physician Updated By No Inpatient Medication Info rmation Available SOCIAL HISTORY SOCIAL HISTORY SNOMED-CT Social History Element Description Effective Dates Offered Cessation Comment UpdatedBy [id number] Smoking Status Unknown If Ever Smoked SOCIAL HISTORY - Gender Sex: Male SOCIAL HISTORY - Status : status i nformation is not available Intention in Next Year: intention information is not available SOCIAL HISTORY - Sexual Behavior Sexual Orientation Gender Identity SNOMED-CT Description SNO MED -CT Description Activity Level No of Partners Partner Type UpdatedBy Information is not available HEALTH CONCERNS Problems Concern Status Health Concern problem infor mation not available. Smoking Status Status Years Used Consumed packs p er day Health Concern smoking histo ry information not available. Family History Concern Status Health Concern family histor y information not available. ENCOUNTERS ENCOUNTER INFORMATION Reason for Visit Z13.1 Admission February 08, 2025 6:38:[address] [address] Discharge February 08, 2025 7:38:00 PM [facility] DISC HARGED TO HOME OR SELF CARE ENCOUNTER DIAGNOSES Notes information is not [place] ilable. Code System Diagnosis Onset Date Diagnosis information is not available. ABSTRACT DIAGNOSES Code System Diagnosis Updated By Z13.1 ICD10 ENCOUNTER FOR SC REENING FOR DIABETES MELLITUS [id number] on February 12, 2025 5:07:00 AM [facility] Z12.5 ICD10 ENCOUNTER FOR SC REENING FOR MALIGNANT NEOPLASM OF PROSTATE [id number] on February 12, 2025 5:07:00 AM [facility] Z13.29 ICD10 ENCOUNTER FOR SC REENING FOR OTHER SUSPECTED ENDOCRINE DISORDER [id number] on February 12, 2025 5:07:00 AM [facility] Z13.1 ICD10 ENCOUNTER FOR SC REENING FOR DIABETES MELLITUS [id number] on February 12, 2025 5:07:00 AM [facility] Z12.5 ICD10 ENCOUNTER FOR SC REENING FOR MALIGNANT NEOPLASM OF PROSTATE [id number] on February 12, 2025 5:07:00 AM [facility] Z13.29 ICD10 ENCOUNTER FOR SC REENING FOR OTHER SUSPECTED ENDOCRINE DISORDER [id number] on February 12, 2025 5:07:00 AM [facility] Z13.220 ICD10 ENCOUNTER FOR SC REENING FOR LIPOID DISORDERS [id number] on February 12, 2025 5:07:00 AM [facility] CARE TEAM Care Photo Checker And Assembler Role GARCIA WHITAKER Admitting GARCIA WHITAKER Referring GARCIA WHITAKER Primary Attending GARCIA WHITAKER Primary Care CARE TEAM CARE mail processor Role on Team Status Start Date End Date Update d By SHERMAN SULTANA PCP normal February 08, 2025 4:00:00 AM [facility] February 08, 2025 7:38:00 PM [facility] [id number] on February 09, 2025 10:09:22 AM [facility] SHERMAN SULTANA Referring normal February 08, 2025 4:00:00 AM [facility] February 08, 2025 7:38:00 PM [facility] [id number] on February 09, 2025 10:09:22 AM [facility] SHERMAN SULTANA Attending normal February 08, 2025 4:00:00 AM [facility] February 08, 2025 7:38:00 PM [facility] [id number] on February 09, 2025 10:09:22 AM [facility] SHERMAN SULTANA Admitting normal February 08, 2025 4:00:00 AM [facility] February 08, 2025 7:38:00 PM [facility] [id number] on February 09, 2025 10:09:22 AM [facility] NO FAMILY PHYSICIAN PCP normal February 08, 2025 6:39:04 PM [facility] February 08, 2025 4:00:00 AM [facility] [id number] on February 09, 2025 10:09:22 AM [facility]
--- OUTSIDE RECORDS SUMMARY | 2025-02-26 07:07 | XMS_ITS | Continuity of Care Document ---
Author Organization [facility] Phone Care Team Providers Care Needle Grinder Name Role Phone GARCIA WHITAKER Unavailable GARCIA WHITAKER Primary Care GARCIA WHITAKER Admitting GARCIA WHITAKER Primary Attending RESULTS Patient: GREG MCKENZIE Date of : November 13 3 LABORATORY RESULTS ORDER 100: COMP METABOLIC PA XUAN (LOINC: [id number]) ORDER DATE: February 22, 2025 2:05:00 PM [place] Specimen Source: Serum/Plasm a Specimen Type: Acellular blo od (serum or plasma) specimen PERFORMING LAB: [facility] [address] [facility] [id number] Result Comment: Final Result Date: February 22, 2025 4:52:00 PM UT (TECH: HC) LOINC TEST FLAG RESULT REFERENCE RANGE UPDA CHACHA BY 2951-2 Sodium [Moles/volume ] in Serum or Plasma L 134 mmol/L 136 mmol/L - 145 mmol/L February 22, 2025 4:52:00 PM UTC (TECH: HC) 2823-3 Potassium [Moles/vol ume] in Serum or Plasma N 4.0 mmol/L 3.5 mmol/L - 5.1 mmol/L February 22, 2025 4:52:00 PM UT (TECH: HC) 2075-0 Chloride [Moles/volu me] in Serum or Plasma L 97 mmol/L 98 mmol/L - 107 mmol/L February 22, 2025 4:52:00 PM UTC (TECH: HC) 2027-9 Carbon dioxide, tota l [Moles/volume] in Serum or Plasma N 28 mmol/L 21 mmol/L - 32 mmol/L February 22, 2025 4:52:00 PM UT (TECH: Narr[employer]) 36584-0 Anion gap 3 in Serum or Plasma N 9.0 February 22, 2025 4:52:00 PM [facility] (TECH: Narr8) 2345-7 Glucose [Mass/volume ] in Serum or Plasma H 236 mg/dL 70 mg/dL - 110 mg/dL February 22, 2025 4:52:00 PM UT (TECH: [employer]) 3094-0 Urea nitrogen [Mass/volume] in Serum or Plasma N 16 mg/dL 7 mg/dL - 18 mg/dL February 22, 2025 4:52:00 PM UT (TECH: [employer]) 2160-0 Creatinine [Mass/vol ume] in Serum or Plasma N 0.8 mg/dL 0.8 mg/dL - 1.3 mg/dL February 22, 2025 4:52:00 PM [facility] (TECH: Narr[employer]) 3097-3 Urea nitrogen/Creati nine [Mass Ratio] in Serum or Plasma N 20.0 9 - 21 February 22, 2025 4:52:00 PM [facility] ([employer]: Narr8) 74526-0 Glomerular filtratio n rate/1.73 sq M.predicted by Creatinine-based formula (MDRD) N 106 mL/min >60 February 22, 2025 4:52:00 PM [facility] (TECH: [employer]arr[employer]) 06961-0 Osmolality of Serum or Plasma by calculated by sum of electrolytes N 288 mosm/kg 275 mosm/kg - 301 mosm/kg February 22, 2025 4:52:00 PM [facility] (TECH: [employer]) 2885-2 Protein [Mass/volume ] in Serum or Plasma N 7.5 g/dL 6.4 g/dL - 8.2 g/dL February 22, 2025 4:52:00 PM [place] (TECH: [employer]) 1751-7 Albumin [Mass/volume ] in Serum or Plasma N 3.4 g/dL 3.4 g/dL - 5.0 g/dL February 22, 2025 4:52:00 PM [facility] (TECH: Narr8) 11729-2 Calcium [Mass/volume ] in Serum or Plasma N 9.2 mg/dL 8.5 mg/dL - 10.1 mg/dL February 22, 2025 4:52:00 PM [place] (TECH: Narr8) 34800-3 Calcium [Mass/volume ] corrected for total protein in Serum or Plasma N 9.7 mg/dL 8.5 mg/dL - 1 0.1 mg/dL February 22, 2025 4:52:00 PM [facility] ([employer] ) 1975-2 Bilirubin.total [Mass/volume] in Serum or Plasma N 0.4 mg/dL 0.4 mg/dL - 1.5 mg/dL February 22, 2025 4:52:00 PM [facility] ([employer] ) 1920-8 Aspartate aminotrans ferase [Enzymatic activity/volume] in Serum or Plasma N 33 U/L 15 U/L - 37 U/L February 22, 2025 4:52:00 PM [facility] ([employer] ) 1742-6 Alanine aminotransfe rase [Enzymatic activity/volume] in Serum or Plasma N 42 U/L 12 U/L - 78 U/L February 22, 2025 4:52:00 PM [facility] ([employer] ) 6768-6 Alkaline phosphatase [Enzymatic activity/volume] in Serum or Plasma N 96 U/L 50 U/L - 170 U/L February 22, 2025 4:52:00 PM [facility] ([employer] ) LABORATORY NARRATIVE RESULTS Information is not available [...] Description Effective Dates Offered Cessation Comment UpdatedBy [id number] Smoking Status Unknown If Ever Smoked SOCIAL [...] available. ENCOUNTERS ENCOUNTER INFORMATION Reason for Visit E87.1 Admission February 22, 2025 2:05:[address] [address] Discharge February 22, 2025 5:31:00 PM [facility] DIS CHARGED TO HOME OR SELF CARE ENCOUNTER DIAGNOSES Notes information is not [place] ilable. Code System Diagnosis Onset Date Diagnosis information is not available. ABSTRACT DIAGNOSES Code System Diagnosis Updated By E87.1 ICD10 HYPO-OSMOLALITY AND HYPONATR EMIA [id number] on February 26, 2025 11:06:57 AM [facility] E87.1 ICD10 HYPO-OSMOLALITY AND HYPONATR EMIA [id number] on February 26, 2025 11:06:59 AM [facility] CARE TEAM Care Needle Grinder Role GARCIA WHITAKER Referring GARCIA SOKAN Primary Care GARCIA SOKAN Admitting GARCIA SOKAN Primary Attending CARE TEAM CARE hourly caregiver Role on Team Status Start Date End Date Update d By SHERMAN SULTANA Referring normal February 22, 2025 5:11:35 PM [facility] February 22, 2025 5:31:00 PM [facility] [id number] on February 22, 2025 5:11:35 PM [facility] SHERMAN SULTANA Attending normal February 22, 2025 5:11:35 PM [facility] February 22, 2025 5:31:00 PM [facility] [id number] on February 22, 2025 5:11:35 PM [facility] SHERMAN SULTANA Admitting normal February 22, 2025 5:11:34 PM [facility] February 22, 2025 5:31:00 PM [facility] [id number] on February 22, 2025 5:11:35 PM [facility] SHERMAN SULTANA PCP normal February 22, 2025 2:05:39 PM [facility] February 22, 2025 5:31:00 PM [facility] [id number] on February 22, 2025 5:11:35 PM [facility]
--- OUTSIDE RECORDS SUMMARY | 2025-03-01 07:45 | XMS_ITS | Continuity of Care Document ---
Author Organization [facility] - [facility] Address [address] [place] [address] Care Team Providers Care Conference Producer Name Role Phone DAT WHITAKER Primary Care Provider [phone] Assessment Encounter Date Assessment Date Assessment LastModified by Organization Details LastModified Time 02/14/2025 02/14/2025 we have spent 30 minutes discussing strategies to improve his overall health. Patient has been advised to add salt to taste for a week. Will also review his medications when we recheck his lab work in a week. Patient's spouse is present during discussion. [email or web address] Not available 02/14/2025 09:02:42 Plan of Treatment Reminders Order Date Submit Date Provider Last Modified By Organization Details Last Modified Time Details Appointments OV EST 30 2024 08:00A Fela DUMONT NP Not available Not available Not available Lab noninvasi ve colorecta l cancer DNA + occult blood screening , QL, stool 2024 06/04/2 025 [facility] Only[facility] [address], [address], [place], [address], 02/14/2025 09:10:34 Referral None recorded. Procedures None recorded. Surgeries None recorded. Imaging None recorded. Medication Orders None recorded. Patient TargetsNo targets recorded. Patient InstructionsNo instructions recorded. Reason for Referral None Reported. Results Created Date Observation Date Name Description Value Unit Range Abnormal Flag Note LastModifiedBy Organization Detail LastModifiedTime 02/01/20 25 01/30/2025 imagi ng inter preta tion No observ ation record ed. bsokan [facility] [address], [place], [address], 01/31/2025 08:18:42 Result Notes None recorded. Problems Name Problem SNOMED Code Status Onset Date Resolution Date Notes Provider Name and Address Organization Details Recorded Time Chronic congestive heart failure 74460688 Active 2024 Melly Juarez null, [place] [facility] [place] & [place] 14:21:59 Chronic alcoholism in remission 283564992 Active 2024 Melly Lri null, [place] [facility] [place] 14:22:11 Atrial fibrillati on 16850890 Active 2024 Melly De La Cruzdini null, [place] [facility] [place] 14:22:22 Localized edema 170866226 Active 2024 Melly Lri null, [place] [facility] [place] 14:22:43 Hyperglyce panda due to type 2 diabetes mellitus 7841732823177 09 Active 2024 Melly Lri [place], [place] [facility] [place] 14:23:06 Mixed hyperlipid emia 554842283 Active 2024 Melly Lri null, [place] [facility] [place] 14:23:16 Insomnia 770887114 Active 2024 Melly Lri null, [place] [facility] [place] 14:23:30 Cigarette smoker 86745649 Active 2024 Melly De La Cruzdini null, [place] [facility] [place] 14:23:38 Alcoholism 3958526 Active 2024 Melly Lri null, [place] [facility] [place] 14:28:21 Hyponatrem ia 56207922 Active 2024 Dat Whitaker MD [address] [place] [address], [place], [address] , [place] [facility] [place] 09:00:38 Problem Notes None recorded. Procedures Surgical History Date Name Laterality Status Provider Name and Address Organization Details Recorded Time cardiac catheterization completed [facility] & [place] 02/08/2025 14:25:24 cardioversion completed [facility] & [place] 02/08/2025 14:25:33 repair of tendon completed [facility] & [place] 02/08/2025 14:25:41 Imaging Results None recorded. Procedure Notes None recorded. Medical Equipment None Reported. Allergies No known drug allergies Medications Name Sig Start Date Stop Date Status Note LastModified by Organization Details LastModified Time atorvastati n 40 mg tablet TAKE 1 TABLET BY MOUTH EVERY DAY active Not Available Not Available No t Available ipratropium 0.5 mg-albutero l 3 mg (2.5 mg base)/3 mL nebulizatio n soln 3 ML INHALED FOUR TIMES A DAY NEEDED FOR SHORTNESS OF BREATH OR WHEEZING FOR 90 DAYS active Not Available Not Available No t Available torsemide 20 mg tablet TAKE 2 TABLETS BY MOUTH TWICE A DAY active Not Available Not Available No t Available metoprolol tartrate 100 mg tablet TAKE ONE TABLET BY MOUTH TWICE A DAY FOR 30 DAYS active Not Available Not Available No t Available amiodarone 200 mg tablet TAKE 2 TABLETS BY MOUTH 2 TIMES A DAY active Not Available Not Available No t Available thiamine HCl (vitamin B1) 100 mg tablet 1 TABLET DAILY active Not Available Not Available No t Available aspirin 81 mg tablet,amina yed release TAKE 1 TABLET BY MOUTH EVERY DAY active Not Available Not Available No t Available spironolact one 25 mg tablet TAKE 1 TABLET BY MOUTH EVERY DAY active Not Available Not Available No t Available amiodarone 400 mg tablet TAKE 1 TABLET BY MOUTH TWICE A DAY 02/08 completed Not Available Not Available Not Available metoprolol tartrate 50 mg tablet 1 TABLET TWICE DAILY 02/08 completed Not Available Not Available Not Available nicotine 21 mg/24 hr daily transdermal patch 1 PATCH DAILY 02/08 completed Not Available Not Available Not Available folic acid 1 mg tablet TAKE 1 TABLET BY MOUTH DAILY FOR 30 DAYS active Not Available Not Available No t Available Ventolin HFA 90 mcg/actuati on aerosol inhaler INHALE 2 PUFFS BY MOUTH 4 TIMES A DAY NEEDED FOR SHORTNESS OF BREATH OR WHEEZING active Not Available Not Available No t Available melatonin 5 mg tablet TAKE ONE TABLET BY MOUTH AT BEDTIME NIGHTLY NEEDED FOR SLEEP active Not Available Not Available No t Available Eliquis 5 mg tablet TAKE 1 TABLET BY MOUTH TWICE A DAY active Not Available Not Available No t Available Anoro Ellipta 62.5 mcg-25 mcg/actuati on powder for inhalation INHALE 1 PUFF BY MOUTH ONCE DAILY FOR 90 DAYS active Not Available Not Available No t Available Jardiance 10 mg tablet Take 1 tablet every day by oral route. 2024 active Not Available Not Available Not Avai lable Entresto 24 mg-26 mg tablet TAKE 1 TABLET BY MOUTH TWICE A DAY active Not Available Not Available No t Available Trelegy Ellipta 100 mcg-62.5 mcg-25 mcg powder for inhalation Inhale 1 puff every day by inhalatio n route. 2024 active Not Available Not Available Not Avai lable Daily-Nicole (with folic acid) 400 mcg tablet TAKE 1 TABLET BY MOUTH DAILY AT 5 PM active Not Available Not Available No t Available Vitals Date Recorded Body height Body mass index (BMI) Body weight Body temperature Heart rate Respiratory rate Oxygen saturation Oxygen saturation in Arterial blood by Pulse oximetry Systolic blood pressure Diastolic blood pressure Provider Name and Address Organization Details Last Updated DateTime 175.26 cm 24.8 kg/m2 62702.2 4 g 98.2 [degF] 57 /min 16 /min 94 % 94 % 133 mm[Hg] 75 mm[Hg] Melly Ann SIERRA [facility] & [place] 08:42:30 Social History Question Answer Notes LastModified by Organizat ion Details LastModified Time Tobacco Smoking Status Current Every Day Smoker Melly De La CruzJONAH chino [facility] & [place] 02/08/2025 14:24:19 Do You Have An Advance Directive? No Information not available 02/08/2025 Are You Blind Or Do You Have Difficulty Seeing? No Information not available 02/08/2025 What Is Your Level Of Caffeine Consumption? Occasional Information not available 02/08/2025 In The 14 Days Before Symptom Onset, Have You Had Close Contact With A Laboratory-confir med COVID-19 While That Case Was Ill? No Information not available 02/08/2025 In The 14 Days Before Symptom Onset, Have You Had Close Contact With A Person Who Is Under Investigation For COVID-19 While That Person Was Ill? No Information not available 02/08/2025 Have You Been To An Area Known To Be High Risk For COVID-19? No Information not available 02/08/2025 Are You Deaf Or Do You Have Serious Difficulty Hearing? No Information not available 02/08/2025 What Type Of Diet Are You Following? REGULAR Information not available 02/08/2025 Have You Processed Blood Or Body Fluids From An Ebola Virus Disease Patient Without Appropriate PPE? No Information not available 02/08/2025 Do You Reside In Or Have You Traveled To An Area Where Ebola Virus Transmission Is Active? No Information not available 02/08/2025 Have There Been Any Changes To Your Family Or Social Situation? No Information no t available 02/08/2025 What Is The Fluoride Status Of Your Home? Unknown Information not available 02/08/2025 Are There Any Guns Present In Your Home? No Information not available 02/08/2025 Have You Recently Or Are You Planning To Travel To An Area With Zika Virus? No Information not available 02/08/2025 Do You Use Insect Repellent Routinely? Yes Information not available 02/08/2025 Do You Feel Safe At Home? Yes Information not available 02/08/2025 Do You Have A Medical Power Of Customer Care Consultant? No Information not available 02/08/2025 Do You Have Any Pets? Yes Information not available 02/08/2025 What Is Your Relationship Status? Information not available 02/08/2025 Do You Use Your Seat Belt Or Car Seat Routinely? Yes Information not available 02/08/2025 Do You Have Smoke And Carbon Monoxide Detectors In Your Home? Yes Information not available 02/08/2025 Are You Passively Exposed To Smoke? Yes Information no t available 02/08/2025 How Much Tobacco Do You Smoke? 2 PPD Information not available 02/08/2025 Do You Use Sunscreen Routinely? Yes Information not available 02/08/2025 Has Tobacco Cessation Counseling Been Provided? Yes Information not available 02/08/2025 On What Date Was Tobacco Cessation Counseling Provided? 02/08/2025 Information not available 02/08/2025 Do You Have Difficulty Walking Or Climbing Stairs? No Information not available 02/08/2025 Are You Currently In School? No Information not available 02/08/2025 Sex: Male Functional Status Question Answer Note LastModified by Organizat ion Details LastModified Time Do you use any illicit or recreational drugs? No Information not available 02/08/2025 Do you or have you ever used any other forms of tobacco or nicotine? No Information not available 02/08/2025 What is your level of alcohol consumption? None Information not available 02/08/2025 Are you currently employed? No Information not available 02/08/2025 Do you have transportation difficulties? No Information not available 02/08/2025 Are you able to walk? YESWOREST Information not available 02/08/2025 Do you have difficulty doing errands alone? No Information not available 02/08/2025 Are you able to care for yourself? Yes Information n ot available 02/08/2025 Do you have difficulty dressing or bathing? No Information not available 02/08/2025 What is your exercise level? Occasional Information not available 02/08/2025 Mental Status Question Answer Note LastModified by Organizat ion Details LastModified Time Do you feel stressed (tense, restless, nervous, or anxious, or unable to sleep at night)? [id number] Information not available 02/08/2025 Do you have difficulty concentrating, remembering or making decisions? No Information no t available 02/08/2025 Family History Relationship Description Onset Age of this Age Resolved Age Notes LastModified by Organization Details LastModified Time Mother Chronic obstructive pulmonary disease tpardini Not available 2024 14:26:09 Father Malignant neoplasm of lung tpardini Not available 2024 14:26:19 Medical History No medical history recorded. Past Encounters Encounter ID Performer Location Encounter Start Date Encounter Closed Date Diagnosis/Indication Diagnosis SNOMED-CT Code Diagnosis ICD10 Code Diagnosis Note [id number] Dat Whitaker MD [address] [place] [address] 02/08/2025 13:52:41 02/08/2025 14:55:15 Screening for malignant neoplasm of colon 617815208 Z12.11 Diabetes m ellitus screening 973005812 Z13.1 Hyperlipid emia screening 675675948 Z13.220 Prostate s pecific antigen measurement 04293711 Z12.5 will check patient's PSA Thyroid di sorder screening 210565192 Z13.29 will obtain a TSH Moderate c hronic obstructive pulmonary disease 368377782 J44.9 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 I will refill his medication s as requested. [id number] Dat Whitaker MD [address] [place] [address] 02/14/2025 08:36:11 02/14/2025 09:15:47 Screening for malignant neoplasm of colon 377737108 Z12.11 will order a Cologuard today. Hyponatremia 56724970 E8 7.1 patient has been advised to add salt to food As tolerated for a week. Will recheck his sodium in a week. If we have to, we may need to adjust his medication . Hyperglyce panda due to type 2 diabetes mellitus 2426624189 53609 E11.65 patient to continue with Jardiance. Insomnia 827390565 G47.0 0 patient is taking melatonin. Mixed hyperlipidemia 267 689006 E78.2 Review of patient's lipid panel reveals good control. Patient has been advised to continue with his atorvastat in Health Concerns Section Related Observation LastModified by Organization Detai ls LastModified Time None Recorded Concern Status LastModified by Organization Details LastModified Time None Recorded Payers Encounter Date Sequence Insurance Name Policy Number Policy Foreman Covered Member ID Foreman Member ID Guarantor Name 02/14/2025 1 [employer] [facility] (MEDICAID HMO) Harshad Almendarez [id number] Harshad Almendarez Notes Date Note Type Note Provider Name and Address Organization Details Recorded Time 02/14/2025 text/html Patient presents today to discuss results of lab work. We have also had a chance to review his records from [facility]. Lab work done on patient on 02/08/2025 reveals that he has hyponatremia. It is improved from what it was while he was in the hospital. The rest of his labs are essentially normal. He has a mildly elevated TSH. His A1c is 6.8. The only blood sugar lowering medication he is on is Jardiance.Patient has a history of congestive heart failure. He is currently under the care of cardiology in [place] Whitaker MD [address] [place] [address], [id number], [place] - [facility] - [place] & [place] 02/14/2025 09:02:59
--- OUTSIDE RECORDS SUMMARY | 2025-03-01 07:45 | XMS_ITS | Data Portability ---
Author Organization [facility] Address [address] [place] [address] Care Team Providers Care Mobile Home Set Up Person Name Role Phone DAT WHITAKER Primary Care Provider Assessment Encounter Date Assessment Date Assessment LastModified [...] Details Appointments OV EST 30 2024 08:00A M CHARLEE DUMONT NP Not available Not available Not available Lab CMP, serum or plasma 2024 025 [facility] (Laboratory), [address] [place] [address] , [place], [address], 02/22/2025 12:54:36 noninvasi ve colorecta l cancer DNA + occult blood screening , QL, stool 2024 025 [facility] [address], [address], [place], [address], 02/14/2025 09:10:34 lipid panel, serum 2024 025 ELVIE Not available 02/08/2025 17:51:50 TSH, serum or plasma 2024 025 ELVIE Not available 02/08/2025 17:51:47 PSA, serum or plasma 2024 ELVIE Not available 02/08/2025 17:51:45 hemoglobi n A1c + average glucose, QN, blood 2024 tpardini Not available 02/09/2025 09:50:50 CMP, serum or plasma 2024 ELVIE Not available 02/08/2025 17:51:49 Referral None recorded. Procedures None recorded. Surgeries None recorded. Imaging None recorded. Medication Orders Trelegy Ellipta 100 mcg-62.5 mcg-25 mcg powder for inhalatio n 2024 [id number], [address] [place], [address], 02/08/2025 14:48:40 Eliquis 5 mg tablet 2024 025 [id number], [facility] [place], [address], 02/08/2025 14:51:54 aspirin 81 mg tablet,de layed release 2024 025 [id number], [facility] [place], [address], 02/08/2025 14:51:52 atorvasta tin 40 mg tablet 2024 025 [facility], [facility] [place], [address], 02/08/2025 14:51:52 Entresto 24 mg-26 mg tablet 2024 025 [facility], [facility] [place], [address], 02/08/2025 14:51:53 Jardiance 10 mg tablet 2024 025 [facility], [facility] [place], [address], 02/08/2025 14:51:52 spironola ctone 25 mg tablet 2024 025 [facility], [address], [place], [address], 02/08/2025 14:51:52 Patient TargetsNo targets recorded. Patient InstructionsNo instructions recorded. Reason for Referral None Reported. Results Created Date Observation Date Name Description Value Unit Range Abnormal Flag Note LastModifiedBy Organization Detail LastModifiedTime 02/09/20 25 02/08/2025 HEMOG LOBIN A1C glycosylated hemoglobin A1C 6.8 % 4.5-6. 2 high Not Available [facility] (Lab Registration) [address], [place], [address], 02/08/2025 17:36:34 02/09/20 25 02/08/2025 HEMOG LOBIN A1C estimated average glucose 148 mg/dL 82-131 high Not Available [facility] (Lab Registration) [address], [place], [address], 02/08/2025 17:36:34 02/09/20 25 02/08/2025 HEMOG LOBIN A1C note Ly delgado other pryor noted testi ng perfo rmed at: [facility] [address] [place] [address] [phone] Dixon delgado MD CLIA: [id number] Not Available [facility] (Lab Registration) [address], [place], [address], 02/08/2025 17:36:34 02/09/20 25 02/08/2025 PROST ATE SPECI FIC AG (PSA) prostate specific Ag (PSA) 0.75 NG/mL 0.0-4. 0 Not Available [facility] (Lab Registration) [address], [place], [address], 02/08/2025 17:51:45 02/09/20 25 02/08/2025 PROST ATE SPECI FIC AG (PSA) note Unles s other pryor noted testi ng perfo rmed at: [facility] [address] [place] [address] [phone] Dixon delgado MD CLIA: [id number] Not Available [facility] (Lab Registration) [address] [place], [address], 02/08/2025 17:51:45 02/09/20 25 02/08/2025 THYRO ID STIMU LATIN G HORMO NE thyroid stimulating hormone 5.19 mIU/m L 0.34-4 .80 high Not Available [facility] (Lab Registration) [address], [place], [address], 02/08/2025 17:51:47 02/09/20 25 02/08/2025 THYRO ID STIMU LATIN G HORMO NE note Marianoes s other pryor noted testi ng perfo rmed at: [facility] [address] [place] [phone] Dixon delgado MD CLIA: [id number] Not Available [facility] (Lab Registration) [address], [place], [address], 02/08/2025 17:51:47 02/09/20 25 02/08/2025 COMP METAB OLIC PANEL sodium 132 mmol/ L 136-14 5 low Not Available [facility] (Lab Registration) [address] [place], [address], 02/08/2025 17:51:49 02/09/20 25 02/08/2025 COMP METAB OLIC PANEL potassium 3.5 mmol/ L 3.5-5. 1 Not Available [facility] (Lab Registration) [address], [place], [address], 02/08/2025 17:51:49 02/09/20 25 02/08/2025 COMP METAB OLIC PANEL chloride 93 mmol/ L 98-107 low Not Available [facility] (Lab Registration) [address] [place], [address], 02/08/2025 17:51:49 02/09/20 25 02/08/2025 COMP METAB OLIC PANEL carbon dioxide 31 mmol/ L 21-32 Not Available [facility] (Lab Registration) [address] [place], [address], 02/08/2025 17:51:49 02/09/20 25 02/08/2025 COMP METAB OLIC PANEL anion gap 8.0 Not Available [facility] (Lab Registration) [address] [place], [address], 02/08/2025 17:51:49 02/09/20 25 02/08/2025 COMP METAB OLIC PANEL glucose 196 mg/dL 70-110 high Not Available [facility] (Lab Registration) [address] [place], [address], 02/08/2025 17:51:49 02/09/20 25 02/08/2025 COMP METAB OLIC PANEL blood urea nitrogen 20 mg/dL 7-18 high Not Available [facility] (Lab Registration) [address] [place], [address], 02/08/2025 17:51:49 02/09/20 25 02/08/2025 COMP METAB OLIC PANEL creatinine 1.1 mg/dL 0.8-1. 3 Not Available [facility] (Lab Registration) [address] [place], [address], 02/08/2025 17:51:49 02/09/20 25 02/08/2025 COMP METAB OLIC PANEL BUN/creatini ne ratio 18.2 9-21 Not Available [facility] (Lab Registration) [address] [place], [address], 02/08/2025 17:51:49 02/09/20 25 02/08/2025 COMP METAB OLIC PANEL estimated glom filtration rate 81 mL/mi n >60- GFR LIMIT ATION : The eGFR equat ion CKD-E PI 2020 is not appli cable for pedia tric patie nts or great er than 90 years of age. The follo wing condi tions may alter the GFR resul t: extre mes in body size, malnu triti on or obesi ty, skele loan muscl e disea se, parap legia or quadr ipleg ia, veget rashaad diet or rapid ly quiles ing kiney funct ion. Not Available [facility] (Lab Registration) [address], [place], [address], 02/08/2025 17:51:49 02/09/20 25 02/08/2025 COMP METAB OLIC PANEL osmolality (calculated) 283 mOsm/ kg 275-30 1 OSMOL ALITY IS A CALCU LATIO N UTILI ZING THE SERUM /PLAS MA SODIU M, GLUCO SE AND UREA NITRO GEN (BUN) LEVEL S. FOR THE MOST ACCUR ATE RESUL T A MEASU RED SERUM OSMOL ALITY IS SUGGE STED. Not Available [facility] (Lab Registration) [address], [place], [address], 02/08/2025 17:51:49 02/09/20 25 02/08/2025 COMP METAB OLIC PANEL total protein 8.0 g/dL 6.4-8. 2 Not Available [facility] (Lab Registration) [address], [place], [address], 02/08/2025 17:51:49 02/09/20 25 02/08/2025 COMP METAB OLIC PANEL albumin 3.2 g/dL 3.4-5. 0 low Not Available [facility] (Lab Registration) [address], [place], [address], 02/08/2025 17:51:49 02/09/20 25 02/08/2025 COMP METAB OLIC PANEL calcium 9.6 mg/dL 8.5-10 .1 Not Available [facility] (Lab Registration) [address], [place], [address], 02/08/2025 17:51:49 02/09/20 25 02/08/2025 COMP METAB OLIC PANEL corrected calcium 10.2 mg/dL 8.5-10 .1 high Not Available [facility] (Lab Registration) [address], [place], [address], 02/08/2025 17:51:49 02/09/20 25 02/08/2025 COMP METAB OLIC PANEL bilirubin total 0.6 mg/dL 0.4-1. 5 Not Available [facility] (Lab Registration) [address], [place], [address], 02/08/2025 17:51:49 02/09/20 25 02/08/2025 COMP METAB OLIC PANEL AST (SGOT) 34 U/L 15-37 Not Available [facility] (Lab Registration) [address] [place], [address], 02/08/2025 17:51:49 02/09/20 25 02/08/2025 COMP METAB OLIC PANEL ALT (SGPT) 52 U/L 12-78 Not Available [facility] (Lab Registration) [address] [place], [address], 02/08/2025 17:51:49 02/09/20 25 02/08/2025 COMP METAB OLIC PANEL alk phosphatase 97 U/L 50-170 Not Available [facility] [address] [place], [address], 02/08/2025 17:51:49 02/09/20 25 02/08/2025 COMP METAB OLIC PANEL note Unles s other pryor noted testi ng perfo rmed at: [facility] [address] [place] [address] [phone] Dixon delgado MD CLIA: [id number] Not Available [facility] (Lab Registration) [address] [place], [address], 02/08/2025 17:51:49 02/09/20 25 02/08/2025 LIPID PANEL triglyceride 82 mg/dL 20-200 The Natio nal Daniela stero l Educa tion Progr am (NCEP ) has set the follo wing guide lines for Fasti ng Trigl yceri kevon: AFSHIN L: <150 mg/dL BORDE RLINE HIGH: 150 - 199 mg/dL HIGH: 200 - 499 mg/dL VERY HIGH: > or =500 mg/dL Not Available [facility] (Lab Registration) [address] [place], [address], 02/08/2025 17:51:50 02/09/20 25 02/08/2025 LIPID PANEL cholesterol 131 mg/dL 0-200 The Natio nal Daniela stero l Educa tion Progr am (NCEP ) has set the follo wing guide lines for Fasti ng Daniela stero l: JUAN ABLE: <200 mg/dL BORDE RLINE HIGH: 200 - 239 mg/dL HIGH: > or =240 mg/dL Not Available [facility] (Lab Registration) [address] [place], [address], 02/08/2025 17:51:50 02/09/20 25 02/08/2025 LIPID PANEL HDL cholesterol 37 mg/dL 60- low The Natio nal Daniela stero l Educa tion Progr am (NCEP ) has set the follo wing guide lines for Fasti ng HDL Daniela stero l: LOW HDL: <40 mg/dL AFSHIN L: 40 - 60 mg/dL JUAN ABLE: >60 mg/dL Not Available [facility] (Lab Registration) [address] [place], [address], 02/08/2025 17:51:50 02/09/2002/08/2025 LIPID PANEL LDL calculated 78 mg/dL 100- low The Natio nal Daniela st[employer] l Educa tion Progr am (NCEP ) has set the follo wing guide lines for Fasti ng LDL Daniela stero l: OPTIM AL: < 100 mg/dL LOW RISK: 100 - 129 mg/dL BORDE RLINE HIGH: 130 - 159 mg/dL HIGH: 160 - 189 mg/dL VERY HIGH: > or = 190 mg/dL Not Available [facility] (Lab Registration) [address] [place], [address], 02/08/2025 17:51:50 02/09/20 25 02/08/2025 LIPID PANEL chol/HDL ratio 4 -5 Not Available [facility] (Lab Registration) [address] [place], [address], 02/08/2025 17:51:50 02/09/20 25 02/08/2025 LIPID PANEL note Unles s other pryor noted testi ng perfo rmed at: [facility] [address] [place] [address] [phone] Dixon delgado MD CLIA: [id number] Not Available [facility] (Lab Registration) [address] [place], [address], 02/08/2025 17:51:50 02/09/20 25 02/08/2025 T4 FREE T4,free 1.16 NG/dL 0.76-1 .46 Effec tive today 013 new Refer ence Range . Not Available [facility] (Lab Registration) [address] [place], [address], 02/08/2025 18:14:07 02/09/20 25 02/08/2025 T4 FREE note Unljamin delgado other pryor noted testi ng perfo rmed at: [facility] [address] [place] [address] [phone] Dixon delgado MD CLIA: [id number] Not Available [facility] (Lab Registration) [address] [place], [address], 02/08/2025 18:14:07 02/23/20 25 02/22/2025 COMP METAB OLIC PANEL sodium 134 mmol/ L 136-14 5 low Not Available [facility] (Lab Registration) [address] [place], [address], 02/22/2025 12:54:36 02/23/20 25 02/22/2025 COMP METAB OLIC PANEL potassium 4.0 mmol/ L 3.5-5. 1 Not Available [facility] (Lab Registration) [address] [place], [address], 02/22/2025 12:54:36 02/23/20 25 02/22/2025 COMP METAB OLIC PANEL chloride 97 mmol/ L 98-107 low Not Available [facility] (Lab Registration) [address] [place], [address], 02/22/2025 12:54:36 02/23/20 25 02/22/2025 COMP METAB OLIC PANEL carbon dioxide 28 mmol/ L 21-32 Not Available [facility] (Lab Registration) [address] [place], [address], 02/22/2025 12:54:36 02/23/20 25 02/22/2025 COMP METAB OLIC PANEL anion gap 9.0 Not Available [facility] (Lab Registration) [address] [place], [address], 02/22/2025 12:54:36 02/23/20 25 02/22/2025 COMP METAB OLIC PANEL glucose 236 mg/dL 70-110 high Not Available [facility] (Lab Registration) [address] [place], [address], 02/22/2025 12:54:36 02/23/20 25 02/22/2025 COMP METAB OLIC PANEL blood urea nitrogen 16 mg/dL 7-18 Not Available [facility] (Lab Registration) [address] [place], [address], 02/22/2025 12:54:36 02/23/20 25 02/22/2025 COMP METAB OLIC PANEL creatinine 0.8 mg/dL 0.8-1. 3 Not Available [facility] (Lab Registration) [address] [place], [address], 02/22/2025 12:54:36 02/23/20 25 02/22/2025 COMP METAB OLIC PANEL BUN/creatini ne ratio 20.0 9-21 Not Available [facility] (Lab Registration) [address], [place], [address], 02/22/2025 12:54:36 02/23/20 25 02/22/2025 COMP METAB OLIC PANEL estimated glom filtration rate 106 mL/mi n >60- GFR LIMIT ATION : The eGFR equat ion CKD-E PI 2020 is not appli cable for pedia tric patie nts or great er than 90 years of age. The follo wing condi tions may alter the GFR resul t: extre mes in body size, malnu triti on or obesi ty, skele loan muscl e disea se, parap legia or quadr ipleg ia, veget rashaad diet or rapid ly quiles ing kiney funct ion. Not Available [facility] (Lab Registration) [address], [place], [address], 02/22/2025 12:54:36 02/23/20 25 02/22/2025 COMP METAB OLIC PANEL osmolality (calculated) 288 mOsm/ kg 275-30 1 OSMOL ALITY IS A CALCU LATIO N UTILI ZING THE SERUM /PLAS MA SODIU M, GLUCO SE AND UREA NITRO GEN (BUN) LEVEL S. FOR THE MOST ACCUR ATE RESUL T A MEASU RED SERUM OSMOL ALITY IS SUGGE STED. Not Available [facility] (Lab Registration) [address], [place], [address], 02/22/2025 12:54:36 02/23/20 25 02/22/2025 COMP METAB OLIC PANEL total protein 7.5 g/dL 6.4-8. 2 Not Available [facility] (Lab Registration) [address], [place], [address], 02/22/2025 12:54:36 02/23/20 25 02/22/2025 COMP METAB OLIC PANEL albumin 3.4 g/dL 3.4-5. 0 Not Available [facility] (Lab Registration) [address] [place], [address], 02/22/2025 12:54:36 02/23/20 25 02/22/2025 COMP METAB OLIC PANEL calcium 9.2 mg/dL 8.5-10 .1 Not Available [facility] (Lab Registration) [address] [place], [address], 02/22/2025 12:54:36 02/23/20 25 02/22/2025 COMP METAB OLIC PANEL corrected calcium 9.7 mg/dL 8.5-10 .1 Not Available [facility] (Lab Registration) [address] [place], [address], 02/22/2025 12:54:36 02/23/20 25 02/22/2025 COMP METAB OLIC PANEL bilirubin total 0.4 mg/dL 0.4-1. 5 Not Available [facility] (Lab Registration) [address] [place], [address], 02/22/2025 12:54:36 02/23/20 25 02/22/2025 COMP METAB OLIC PANEL AST (SGOT) 33 U/L 15-37 Not Available [facility] (Lab Registration) [address] [place], [address], 02/22/2025 12:54:36 02/23/20 25 02/22/2025 COMP METAB OLIC PANEL ALT (SGPT) 42 U/L 12-78 Not Available [facility] (Lab Registration) [address] [place], [address], 02/22/2025 12:54:36 02/23/20 25 02/22/2025 COMP METAB OLIC PANEL alk phosphatase 96 U/L 50-170 Not Available [facility] ([facility]) [address] [place], [address], 02/22/2025 12:54:36 02/23/20 25 02/22/2025 COMP METAB OLIC PANEL note Unles s other pryor noted testi ng perfo rmed at: [facility] [address] [place] [address] [phone] Dixon delgado MD CLIA: [id number] Not Available [facility] (Lab Registration) [address] , [place], [address], 02/22/2025 12:54:36 02/01/20 25 01/30/2025 imagi ng inter preta tion No observ ation record ed. [facility] [address], [place], [address], 01/31/2025 08:18:42 Result Notes None recorded. Problems Name Problem SNOMED Code Status Onset Date Resolution Date Notes Provider Name and Address Organization Details Recorded Time Chronic congestive heart failure 88391579 Active 2024 Melly Jonodini null, [place] - [facility] - [place] & [place] 14:21:59 Chronic alcoholism in remission 270147489 Active 2024 Melly Pardini null, [place] - [facility] - [place] & [place] 14:22:11 Atrial fibrillati on 39359583 Active 2024 Melly Jonodini null, [place] [facility] [place] 14:22:22 Localized edema 534521703 Active 2024 Melly Jonodini null, [place] - [facility] & [place] 14:22:43 Hyperglyce panda due to type 2 diabetes mellitus 9551272415639 09 Active 2024 Melly Pardini null, [place] [facility] & [place] 14:23:06 Mixed hyperlipid emia 298101937 Active 2024 Melly Pardini null, [place] - [facility] & [place] 14:23:16 Insomnia 348788034 Active 2024 Melly beltrán, JONAH - [facility] - [place] & [place] 5 14:23:30 Cigarette smoker 71452700 Active 2024 Melly beltrán, JONAH - [facility] - [place] & [place] 14:23:38 Alcoholism 4514140 Active 2024 Melly beltrán, JONAH - [facility] - [place] & [place] 5 14:28:21 Hyponatrem ia 50780244 Active 2024 Dat Whitaker MD [address] [place] [address], [phone] [facility] JONAH Macedo [facility] & [place] 09:00:38 Problem Notes None recorded. Procedures Surgical History Date Name Laterality Status Provider Name and Address Organization Details Recorded Time cardiac catheterization completed Mellyjorge Lr JONAH SIERRA [facility] & [place] 02/08/2025 14:25:24 cardioversion completed Mellyjorge Lr JONAH Macedo [facility] & [place] 02/08/2025 14:25:33 repair of tendon completed [facility] JONAH Macedo [facility] & [place] 02/08/2025 14:25:41 Imaging Results None recorded. Procedure [...] mass index (BMI) Body weight Body temperature Oxygen saturation Oxygen saturation in Arterial blood by Pulse oximetry Heart rate Respiratory rate Systolic blood pressure Diastolic blood pressure Provider Name and Address Organization Details Last Updated DateTime 175.26 cm 24.5 kg/m2 62155.9 g 97.9 [degF] 91 % 91 % 82 /min 16 /min 101 mm[Hg] 58 mm[Hg] Melly Macedo [facility] & [place] 5 14:20:45 Date Recorded Body height Body mass index (BMI) Body weight Body temperature Heart rate Respiratory rate Oxygen saturation Oxygen saturation in Arterial blood by Pulse oximetry Systolic blood pressure Diastolic blood pressure Provider Name and Address Organization Details Last Updated DateTime 5 175.26 cm 24.8 kg/m2 32326.2 4 g 98.2 [degF] 57 /min 16 /min 94 % 94 % 133 mm[Hg] 75 mm[Hg] Melly MCKENZIE [facility] & [place] 5 08:42:30 Date Recorded Body height Body mass index (BMI) Body weight Body temperature Oxygen saturation Oxygen saturation in Arterial blood by Pulse oximetry Heart rate Respiratory rate Systolic blood pressure Diastolic blood pressure Provider Name and Address Organization Details Last Updated DateTime 5 175.26 cm 24.4 kg/m2 79811.7 4 g 97.9 [degF] 94 % 94 % 62 /min 14 /min 134 mm[Hg] 72 mm[Hg] Melly MCKENZIE [facility] & [place] 5 09:54:49 Social History Question Answer Notes LastModified by Organizat ion Details LastModified Time Tobacco Smoking Status Current Every Day Smoker Melly beltrán JONAH Macedo [facility] & [place] 02/08/2025 14:24:19 Do You Have An Advance [...] Do You Have A Medical Power Of Job Specification Writer? No Information not available 02/08/2025 Do You [...] anxious, or unable to sleep at night)? 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 I will refill his medication s as requested. [id number] Dat Whitaker MD [address] [place] [address] 02/14/2025 08:36:11 02/14/2025 09:15:47 Screening for malignant neoplasm of colon 978602198 Z12.11 will order a Cologuard today. Hyponatremia 14620909 E8 7.1 patient has been advised to add salt to food As tolerated for a week. Will recheck his sodium in a week. If we have to, we may need to adjust his medication . Hyperglyce panda due to type 2 diabetes mellitus 7213674452 78848 E11.65 patient to continue with Jardiance. Insomnia 578235861 G47.0 0 patient is taking melatonin. Mixed hyperlipidemia 267 427359 E78.2 Review of patient's lipid panel reveals good control. Patient has been advised to continue with his atorvastat in [id number] Dat Whitaker MD [address] [place] [address] 02/22/2025 09:39:03 02/22/2025 10:37:49 Hyponatremia 54615715 E87.1 patient has been advised to add salt to food As tolerated for a week. Will recheck his sodium in a week. If we have to, we may need to adjust his medication . Health Concerns Section Related Observation LastModified by Organization Detai ls LastModified Time None Recorded Concern Status LastModified by Organization Details LastModified Time None Recorded Advance Directives Directive N: Payers Insurance Date Sequence Insurance Name Policy Number Policy Foreman Covered Member ID Foreman Member ID Guarantor Name 02/22/2025 1 [facility] [facility] (MEDICAID HMO) Harshad Almendarez [id number] Harshad Almendarez Notes Date Note Type Note Provider Name and Address Organization Details Recorded Time 02/08/2025 text/html this is a new patient who presents today to establish care. prior to this patient has not had a PCP. He states that he was seen at [facility] and diagnosed with atrial fib and congestive heart failure. This occurred about a month ago. He is under the care of Dr. Nowak. He admits to being an alcoholic who has not had a drink in the last 4 weeks. He also smokes 2 packs a day. He states that he has cut down to 1 pack a day at this time. Dta Whitaker MD [address] [place] [address], [phone], [facility] & [place] 02/08/2025 15:26:04 02/14/2025 text/html Patient presents today to discuss results of lab work. We have also had a chance to review his records from [facility]. Lab work done on patient on [...] care of cardiology in Hui Whitaker MD [address] [place] [address], [phone] & [place] 02/14/2025 09:02:59 02/22/2025 text/html patient presents today to follow-up on his electrolyte abnormalities. Patient was seen last week. At the time he was hyponatremic. He was advised to add Salt to food as tolerated. Will recheck his lab work today.. Dat Whitaker MD [address] [place] [address], [phone] [facility] & [place] 02/22/2025 10:19:52
--- OUTSIDE RECORDS SUMMARY | 2025-03-01 07:45 | XMS_ITS | Continuity of Care Document ---
Author Organization [facility] & [facility]- [facility] Address [address] [place] [address] Care Team Providers Care Spar Finisher Name Role Phone DAT WHITAKER Primary Care Provider Assessment No assessment recorded. Plan of Treatment Reminders Order Date Submit Date Provider Last Modified By Organization Details Last Modified Time Details Appointments OV EST 30 2024 08:00A M CHARLEE DUMONT NP Not available Not available Not available Lab CMP, serum or plasma 2024 025 [facility] (Laboratory), [address] [place] [address] [place], [address], 02/22/2025 12:54:36 Referral None recorded . Procedures None recorded . Surgeries None recorded . Imaging None recorded . Medication Orders None recorded . Patient TargetsNo targets recorded. Patient InstructionsNo instructions recorded. Reason for Referral None Reported. Results Created Date Observation Date Name Description Value Unit Range Abnormal Flag Note LastModifiedBy Organization Detail LastModifiedTime 02/01/20 25 01/30/2025 imagi ng inter preta tion No observ ation record ed. [facility] [address], [place], [address], 01/31/2025 08:18:42 Result Notes None recorded. Problems Name Problem SNOMED Code Status Onset Date Resolution Date Notes Provider Name and Address Organization Details Recorded Time Chronic congestive heart failure 08008368 Active 2024 JONAH Lambert [facility] & [place] 14:21:59 Chronic alcoholism in remission 875474426 Active 2024 Melly Pardini null, [place] - [facility] - [place] & [place] 14:22:11 Atrial fibrillati on 19556399 Active 2024 Melly Lri [place] [facility] [place] & [place] 14:22:22 Localized edema 432189426 Active 2024 Melly De [place] Cruz[place]ini [place] [facility] [place] & [place] 14:22:43 Hyperglyce panda due to type 2 diabetes mellitus 9071029563114 09 Active 2024 Melly De [place] [facility] [place] & [place] 14:23:06 Mixed hyperlipid emia 692173570 Active 2024 Melly Lri [place] [facility] [place] & [place] 14:23:16 Insomnia 085832936 Active 2024 Mel[place] Lri [place] [facility] [place] & [place] 14:23:30 Cigarette smoker 47869902 Active 2024 Mel[place] Lri [place] [facility] [place] & [place] 14:23:38 Alcoholism 7666167 Active 2024 Mel[place] Lri [place] [facility] [place] & [place] 14:28:21 Hyponatrem ia 37969851 Active 2024 Dat Whitaker MD [address] [place] [address], [phone] [facility] [place] - [facility] - [place] & [place] 09:00:38 Problem Notes None recorded. Procedures Surgical History Date Name Laterality Status Provider Name and Address Organization Details Recorded Time cardiac catheterization completed Melly Lri [place] [facility] - [place] & [place] 02/08/2025 14:25:24 cardioversion completed Melly De La Cruzdini [place] [facility] - [place] & [place] 02/08/2025 14:25:33 repair of tendon completed Melly Lri [place] [facility] - [place] & [place] 02/08/2025 14:25:41 Imaging Results None recorded. Procedure [...] Not Available Not Available No t Available José Luislelisa Ellipta 100 mcg-62.5 mcg-25 mcg powder for [...] Updated DateTime 5 175.26 cm 24.4 kg/m2 29365.7 4 g 97.9 [degF] 94 % 94 % 62 /min 14 /min 134 mm[Hg] 72 mm[Hg] Melly Lrsarah [facility] & [place] 09:54:49 Social History Question Answer Notes LastModified by Organizat ion Details LastModified Time Tobacco Smoking Status Current Every Day Smoker Melly Juarez [facility] & [place] 02/08/2025 14:24:19 Do You Have An Advance [...] Do You Have A Medical Power Of Chemicals Distiller? No Information not available 02/08/2025 Do You [...] anxious, or unable to sleep at night)? 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 I will refill his medication s as requested. [id number] Dat Whitaker MD [address] [place] [address] 02/14/2025 08:36:11 02/14/2025 09:15:47 Screening for malignant neoplasm of colon 018638686 Z12.11 will order a Cologuard today. Hyponatremia 54923886 E8 7.1 patient has been advised to add salt to food As tolerated for a week. Will recheck his sodium in a week. If we have to, we may need to adjust his medication . Hyperglyce panda due to type 2 diabetes mellitus 8107270988 43691 E11.65 patient to continue with Jardiance. Insomnia 938796794 G47.0 0 patient is taking melatonin. Mixed hyperlipidemia 267 890697 E78.2 Review of patient's lipid panel reveals good control. Patient has been advised to continue with his atorvastat in [id number] Dat Whitaker MD [place] [address] [address] [place] [address] 02/22/2025 09:39:03 02/22/2025 10:37:49 Hyponatremia 18927340 E87.1 patient has been advised to add [...] Member ID Guarantor Name 02/22/2025 1 [employer] [facility] (MEDICAID HMO) Harshad Almendarez [id number] Harshad Almendarez Notes Date Note Type Note Provider Name and Address Organization Details Recorded Time 02/22/2025 text/html patient presents today to follow-up on his electrolyte abnormalities. Patient was seen last week. At the time he was hyponatremic. He was advised to add Salt to food as tolerated. Will recheck his lab work today.. Dat Whitaker MD [address] [place] [address], [phone], [facility] - [place] & [place] 02/22/2025 10:19:52
--- OUTSIDE RECORDS SUMMARY | 2025-03-01 07:45 | XMS_ITS | Continuity of Care Document ---
Author Organization [facility]- [facility] Address [address] [place] [address] Care Team Providers Care Client Services Representative Name Role Phone DAT WHITAKER Primary Care Provider Assessment No assessment recorded. Plan of Treatment Reminders Order Date Submit Date Provider Last Modified By Organization Details Last Modified Time Details Appointments OV EST 30 2024 08:00A M CHARLEE DUMONT NP Not available Not available Not available Lab lipid panel, serum 2024 025 ELVIE Not available 02/08/2025 17:51:50 TSH, serum or plasma 2024 025 ELVIE Not available 02/08/2025 17:51:47 PSA, serum or plasma 2024 025 ELVIE Not available 02/08/2025 17:51:45 hemoglobi n A1c + average glucose, QN, blood 2024 025 tpardini Not available 02/09/2025 09:50:50 CMP, serum or plasma 2024 025 ELVIE Not available 02/08/2025 17:51:49 Referral None recorded. Procedures None recorded. Surgeries None recorded. Imaging None recorded. Medication Orders Trelegy Ellipta 100 mcg-62.5 mcg-25 mcg powder for inhalatio n 2024 025 [facility], [address] [place], [address], 02/08/2025 14:48:40 Eliquis 5 mg tablet 2024 025 ELVIE [facility], [address] [place], [address], 02/08/2025 14:51:54 aspirin 81 mg tablet,de layed release 2024 025 [facility] [address] [place], [address], 02/08/2025 14:51:52 atorvasta tin 40 mg tablet 2024 025 [facility], [address] [place], [address], 02/08/2025 14:51:52 Entresto 24 mg-26 mg tablet 2024 025 [facility], [address] [place], [address], 02/08/2025 14:51:53 Jardiance 10 mg tablet 2024 025 [facility], [address] [place], [address], 02/08/2025 14:51:52 spironola ctone 25 mg tablet 2024 025 [facility] [address] [place], [address], 02/08/2025 14:51:52 Patient TargetsNo targets recorded. Patient InstructionsNo instructions recorded. Reason for Referral None Reported. Results Created Date Observation Date Name Description Value Unit Range Abnormal Flag Note LastModifiedBy Organization Detail LastModifiedTime 02/01/20 25 01/30/2025 imagi ng inter preta tion No observ ation record ed. [facility] [address], [place], [address], 01/31/2025 08:18:42 Result Notes None recorded. Problems Name Problem SNOMED Code Status Onset Date Resolution Date Notes Provider Name and Address Organization Details Recorded Time Chronic congestive heart failure 19092020 Active 2024 Melly Juarez null, [place] [facility] & [place] 14:21:59 Chronic alcoholism in remission 333480333 Active 2024 Melly Juarez [place] [facility] & [place] 14:22:11 Atrial fibrillati on 30239045 Active 2024 Mel[place] Lri [place] [facility] [place] 14:22:22 Localized edema 511106735 Active 2024 Melly Lri [place] [facility] & [place] 14:22:43 Hyperglyce panda due to type 2 diabetes mellitus 0171696345219 09 Active 2024 Melly Juarez [place] [facility] & [place] 14:23:06 Mixed hyperlipid emia 803167514 Active 2024 Melly Juarez [place] [facility] & [place] 14:23:16 Insomnia 540897978 Active 2024 Melly Juarez [place], [place] [facility] - [facility] & [place] 14:23:30 Cigarette smoker 88751913 Active 2024 Mel[place] Lri [place] [facility] [place] & [place] 14:23:38 Alcoholism 9130820 Active 2024 Melly Juarez [place] [facility] & [place] 14:28:21 Hyponatrem ia 91245932 Active 2024 Dat Whitaker MD [address] [place] [address], [phone] [facility] [place] [facility] & [place] 09:00:38 Problem Notes None recorded. Procedures Surgical History Date Name Laterality Status Provider Name and Address Organization Details Recorded Time cardiac catheterization completed Melly Juarez [place] [facility] & [place] 02/08/2025 14:25:24 cardioversion completed Melly Lr [place] [facility] & [place] 02/08/2025 14:25:33 [facility] & [place] 02/08/2025 14:25:41 Imaging Results [...] Last Updated DateTime 175.26 cm 24.5 kg/m2 80734.9 g 97.9 [degF] 91 % 91 % 82 /min 16 /min 101 mm[Hg] 58 mm[Hg] Melly Lrsarah [facility] & [place] 14:20:45 Social History Question Answer Notes LastModified by Organizat ion Details LastModified Time Tobacco Smoking Status Current Every Day Smoker Melly Juarez [facility] & [place] 02/08/2025 14:24:19 Do You Have [...] Do You Have A Medical Power Of Title Specialist? No Information not available 02/08/2025 Do You [...] anxious, or unable to sleep at night)? [id number] Information not available 02/08/2025 Do you have [...] SNOMED-CT Code Diagnosis ICD10 Code Diagnosis Note [id number] Dat Whitaker MD [place] [address] [facility] [place] [address] 02/08/2025 13:52:41 02/08/2025 14:55:15 Screening for malignant neoplasm of colon 727868720 Z12.11 Diabetes m ellitus screening 360600149 Z13.1 Hyperlipid emia screening 002296619 Z13.220 Prostate s pecific antigen measurement 20553745 Z12.5 will check patient's PSA Thyroid di sorder screening 021630365 Z13.29 will obtain a TSH Moderate c hronic obstructive pulmonary disease 220599351 J44.9 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 I will refill his medication s as requested. Health Concerns Section Related Observation LastModified by Organization Detai ls LastModified Time None Recorded Concern Status LastModified by Organization Details LastModified Time None Recorded Payers Encounter Date Sequence Insurance Name Policy Number Policy Foreman Covered Member ID Foreman Member ID Guarantor Name 02/08/2025 1 [facility] (MEDICAID HMO) Harshad Almendarez [id number] Harshad Almendarez Notes Date Note Type Note Provider Name and Address Organization Details Recorded Time 02/08/2025 text/html this is a new patient who presents today to establish care. prior to this patient has not had a PCP. He states that he was seen at [facility] and diagnosed with atrial fib and congestive heart failure. This occurred about a month ago. He is under the care of Dr. Nowak. He admits to being an alcoholic who has not had a drink in the last 4 weeks. He also smokes 2 packs a day. He states that he has cut down to 1 pack a day at this time. Dat Whitaker MD [address] [facility], [place], [address], [facility] [place] & [place] 02/08/2025 15:26:04
[2025-03-01] MEDS: ALBUTEROL 0.083% 2.5 MG/3 ML NEB IH (09:55)
== END 2025-03-01 23:59 | disposition home or self-care (01) ==
LOC: RT 07:42
PROVIDERS: PCP Emergency Medicine; Visit Provider Internal Medicine Pulmonary Disease
DX: J44.9 Chronic obstructive pulmonary disease, unspecified (principal); R94.2 Abnormal results of pulmonary function studies
CPT/HCPCS: 94060; 94618; 94726; 94729

== ENCOUNTER 2025-03-08 10:14 | Outpatient (CLI) | payer OTHER, SELFPAY ==
--- OUTSIDE RECORDS SUMMARY | 2025-03-08 10:17 | XMS_ITS | Data Portability ---
Author Organization [facility] Address [address] [place] [address] Care Team Providers Care Collaborative Physician Name Role Phone DAT WHITAKER Primary Care [...] Lab CMP, serum or plasma 2024 025 [facility] (Laboratory), [address] [place] [address] , [place], [address], 02/22/2025 12:54:36 noninvasi ve colorecta l cancer DNA + occult blood screening , QL, stool 2024 025 [facility] ([facility] Orders Only), [address], [address], [facility] [place], [address], 02/14/2025 09:10:34 lipid panel, serum 2024 025 [...] mcg-25 mcg powder for inhalatio n 2024 [facility], [address] [place], [address], 02/08/2025 14:48:40 Eliquis 5 mg tablet 2024 025 [facility], [address] [place] [address], [address], 02/08/2025 14:51:54 aspirin 81 mg tablet,de layed release 2024 025 [facility], [address] [place] [address], [address], 02/08/2025 14:51:52 atorvasta tin 40 mg tablet 2024 025 [facility], [address] [place] [address], [address], 02/08/2025 14:51:52 Entresto 24 mg-26 mg tablet 2024 025 [facility], [address] [place] [address], [address], 02/08/2025 14:51:53 Jardiance 10 mg tablet 2024 025 [facility], [address] [place] [address], [address], 02/08/2025 14:51:52 spironola ctone 25 mg tablet 2024 025 [facility], [address], [place], [address], 02/08/2025 14:51:52 Patient TargetsNo targets recorded. Patient InstructionsNo instructions recorded. Reason for Referral None Reported. Results Created Date Observation Date Name Description Value Unit Range Abnormal Flag Note LastModifiedBy Organization Detail LastModifiedTime 02/09/2002/08/2025 HEMOG LOBIN A1C glycosylated hemoglobin A1C 6.8 % 4.5-6. 2 high Not Available [facility] (Lab Registration) [address], [place], [address], 02/08/2025 17:36:34 02/09/20 25 02/08/2025 HEMOG LOBIN A1C estimated average glucose 148 mg/dL 82-131 high Not Available [facility] (Lab Registration) [address], [place], [address], 02/08/2025 17:36:34 02/09/2002/08/2025 HEMOG LOBIN A1C note Unles s other pryor noted testi ng perfo rmed at: [facility] [address] [place] [address] [phone] Dixon delgado MD CLIA: [id number] Not Available [facility] (Lab Registration) [address], [place], [address], 02/08/2025 17:36:34 02/09/20 25 02/08/2025 PROST ATE SPECI FIC AG (PSA) prostate specific Ag (PSA) 0.75 NG/mL 0.0-4. 0 Not Available [facility] (Lab Registration) [address], [place], [address], 02/08/2025 17:51:45 02/09/20 25 02/08/2025 PROST ATE SPECI FIC AG (PSA) note Ly delgado other pryor noted testi ng perfo rmed at: [facility] [address] [place] [address] [phone] Dixon delgado MD CLIA: [id number] Not Available [facility] (Lab Registration) [address] [place], [address], 02/08/2025 17:51:45 02/09/20 25 02/08/2025 THYRO ID STIMU LATIN G HORMO NE thyroid stimulating hormone 5.19 mIU/m L 0.34-4 .80 high Not Available [facility] (Lab Registration) [address] [place], [address], 02/08/2025 17:51:47 02/09/20 25 02/08/2025 THYRO ID STIMU LATIN G HORMO NE note Ly delgado other pryor noted testi ng perfo rmed at: [facility] [address] [place] [address] [phone] Dixon delgado MD CLIA: [id number] Not Available [facility] (Lab Registration) [address], [place], [address], 02/08/2025 17:51:47 02/09/20 25 02/08/2025 COMP METAB OLIC PANEL sodium 132 mmol/ L 136-14 5 low Not Available [facility] (Lab Registration) [address] [place], [address], 02/08/2025 17:51:49 02/09/20 25 02/08/2025 COMP METAB OLIC PANEL potassium 3.5 mmol/ L 3.5-5. 1 Not Available [facility] (Lab Registration) [address] [place], [address], 02/08/2025 17:51:49 02/09/20 25 02/08/2025 COMP METAB OLIC PANEL chloride 93 mmol/ L 98-107 low Not Available [facility] (Lab Registration) [address], [place], [address], 02/08/2025 17:51:49 02/09/20 25 02/08/2025 COMP METAB OLIC PANEL carbon dioxide 31 mmol/ L 21-32 Not Available [facility] (Lab Registration) [address] [place], [address], 02/08/2025 17:51:49 02/09/20 25 02/08/2025 COMP METAB OLIC PANEL anion gap 8.0 Not Available [facility] (Lab Registration) [address] [place], [address], 02/08/2025 17:51:49 02/09/20 25 02/08/2025 COMP METAB OLIC PANEL glucose 196 mg/dL 70-110 high Not Available [facility] (Lab Registration) [address] [place], [address], 02/08/2025 17:51:49 02/09/20 25 02/08/2025 COMP METAB OLIC PANEL blood urea nitrogen 20 mg/dL 7-18 high Not Available [facility] (Lab Registration) [address] [place], [address], 02/08/2025 17:51:49 02/09/20 25 02/08/2025 COMP METAB OLIC PANEL creatinine 1.1 mg/dL 0.8-1. 3 Not Available [facility] (Lab Registration) [address] [place], [address], 02/08/2025 17:51:49 02/09/20 25 02/08/2025 COMP METAB OLIC PANEL BUN/creatini ne ratio 18.2 9-21 Not Available [facility] (Lab Registration) [address] [place], [address], 02/08/2025 17:51:49 02/09/20 25 02/08/2025 COMP METAB [...] quiles ing kiney funct ion. Not Available [facility] (Lab Registration) [address], [place], [address], 02/08/2025 17:51:49 02/09/2002/08/2025 COMP METAB OLIC PANEL osmolality (calculated) 283 mOsm/ kg 275-30 1 OSMOL ALITY IS A CALCU LATIO N UTILI ZING THE SERUM /PLAS MA SODIU M, GLUCO SE AND UREA NITRO GEN (BUN) LEVEL S. FOR THE MOST ACCUR ATE RESUL T A MEASU RED SERUM OSMOL ALITY IS SUGGE STED. Not Available [facility] (Lab Registration) [address], [place], [address], 02/08/2025 17:51:49 02/09/2002/08/2025 COMP METAB OLIC PANEL total protein 8.0 g/dL 6.4-8. 2 Not Available [facility] (Lab Registration) [address], [place], [address], 02/08/2025 17:51:49 02/09/20 25 02/08/2025 COMP METAB OLIC PANEL albumin 3.2 g/dL 3.4-5. 0 low Not Available [facility] (Lab Registration) [address], [place], [address], 02/08/2025 17:51:49 02/09/2002/08/2025 COMP METAB OLIC PANEL calcium 9.6 mg/dL 8.5-10 .1 Not Available [facility] (Lab Registration) [address], [place], [address], 02/08/2025 17:51:49 02/09/20 25 02/08/2025 COMP METAB OLIC PANEL corrected calcium 10.2 mg/dL 8.5-10 .1 high Not Available [facility] (Lab Registration) [address], [place], [address], 02/08/2025 17:51:49 02/09/20 25 02/08/2025 COMP METAB OLIC PANEL bilirubin total 0.6 mg/dL 0.4-1. 5 Not Available [facility] (Lab Registration) [address] [place], [address], 02/08/2025 17:51:49 02/09/20 25 02/08/2025 COMP METAB OLIC PANEL AST (SGOT) 34 U/L 15-37 Not Available [facility] (Lab Registration) [address] [place], [address], 02/08/2025 17:51:49 02/09/20 25 02/08/2025 COMP METAB OLIC PANEL ALT (SGPT) 52 U/L 12-78 Not Available [facility] (Lab Registration) [address] [place], [address], 02/08/2025 17:51:49 02/09/20 25 02/08/2025 COMP METAB OLIC PANEL alk phosphatase 97 U/L 50-170 Not Available [facility] (Lab Registration) [address] [place], [address], 02/08/2025 17:51:49 02/09/20 25 02/08/2025 COMP METAB OLIC PANEL note Unles s other pryor noted testi ng perfo rmed at: [facility] [address] [place] [address] [phone] Dixon delgado MD CLIA: [id number] Not Available [facility] (Lab Registration) [address] [place], [address], 02/08/2025 17:51:49 02/09/2002/08/2025 LIPID PANEL triglyceride 82 mg/dL 20-200 [employer] (NCEP ) has set the follo wing guide lines for Fasti ng Trigl yceri kevon: AFSHIN L: <150 mg/dL BORDE RLINE HIGH: 150 - 199 mg/dL HIGH: 200 - 499 mg/dL VERY HIGH: > or =500 mg/dL Not Available [facility] (Lab Registration) [address] [place], [address], 02/08/2025 17:51:50 02/09/2002/08/2025 LIPID PANEL cholesterol 131 mg/dL 0-200 [employer] (IDEP ) has set the follo wing guide lines for Fasti ng Daniela stero l: JUAN ABLE: <200 mg/dL BORDE RLINE HIGH: 200 - 239 mg/dL HIGH: > or =240 mg/dL Not Available [facility] (Lab Registration) [address] [place], [address], 02/08/2025 17:51:50 02/09/2002/08/2025 LIPID PANEL HDL cholesterol 37 mg/dL 60- low [employer] (NCEP ) has set the follo wing guide lines for Fasti ng HDL Daniela stero l: LOW HDL: <40 mg/dL AFSHIN L: 40 - 60 mg/dL JUAN ABLE: >60 mg/dL Not Available [facility] (Lab Registration) [address] [place], [address], 02/08/2025 17:51:50 02/09/2002/08/2025 LIPID PANEL LDL calculated [...] > or = 190 mg/dL Not Available [facility] (Lab Registration) [address] [place], [address], 02/08/2025 17:51:50 02/09/20 25 02/08/2025 LIPID PANEL chol/HDL ratio 4 -5 Not Available [facility] (Lab Registration) [address] [place], [address], 02/08/2025 17:51:50 02/09/20 25 02/08/2025 LIPID PANEL note Unles s other pryor noted testi ng perfo rmed at: [facility] [address] [place] [address] [phone] Dixon delgado MD CLIA: [id number] Not Available [facility] (Lab Registration) [address] [place], [address], 02/08/2025 17:51:50 02/09/20 25 02/08/2025 T4 FREE T4,free 1.16 NG/dL 0.76-1 .46 Effec tive today 013 new Refer ence Range . Not Available [facility] (Lab Registration) [address] [place], [address], 02/08/2025 18:14:07 02/09/20 25 02/08/2025 T4 FREE note Unles s other pryor noted testi ng perfo rmed at: [facility] [address] [place] [address] [phone] Dixon delgado MD CLIA: [id number] Not Available [facility] (Lab Registration) [address] [place], [address], 02/08/2025 18:14:07 02/23/20 25 02/22/2025 COMP METAB OLIC PANEL sodium 134 mmol/ L 136-14 5 low Not Available [facility] (Lab Registration) [address] [place], [address], 02/22/2025 12:54:36 02/23/20 25 02/22/2025 COMP METAB OLIC PANEL potassium 4.0 mmol/ L 3.5-5. 1 Not Available [facility] (Lab Registration) [address] [place], [address], 02/22/2025 12:54:36 02/23/20 25 02/22/2025 COMP METAB OLIC PANEL chloride 97 mmol/ L 98-107 low Not Available [facility] (Lab Registration) [address] [place], [address], 02/22/2025 12:54:36 02/23/20 25 02/22/2025 COMP METAB OLIC PANEL carbon dioxide 28 mmol/ L 21-32 Not Available [facility] (Lab Registration) [address] [place], [address], 02/22/2025 12:54:36 02/23/20 25 02/22/2025 COMP METAB OLIC PANEL anion gap 9.0 Not Available [facility] (Lab Registration) [address] [place], [address], 02/22/2025 12:54:36 02/23/20 25 02/22/2025 COMP METAB OLIC PANEL glucose 236 mg/dL 70-110 high Not Available [facility] (Lab Registration) [address] [place], [address], 02/22/2025 12:54:36 02/23/20 25 02/22/2025 COMP METAB OLIC PANEL blood urea nitrogen 16 mg/dL 7-18 Not Available [facility] (Lab Registration) [address] [place], [address], 02/22/2025 12:54:36 02/23/20 25 02/22/2025 COMP METAB OLIC PANEL creatinine 0.8 mg/dL 0.8-1. 3 Not Available [facility] (Lab Registration) [address] [place], [address], 02/22/2025 12:54:36 02/23/20 25 02/22/2025 COMP METAB OLIC PANEL BUN/creatini ne ratio 20.0 9-21 Not Available [facility] (Lab Registration) [address], [place], [address], 02/22/2025 12:54:36 02/23/20 25 02/22/2025 COMP METAB [...] quiles ing kiney funct ion. Not Available [facility] (Lab Registration) [address], [place], [address], 02/22/2025 12:54:36 02/23/20 25 02/22/2025 COMP METAB OLIC PANEL osmolality (calculated) 288 mOsm/ kg 275-30 1 OSMOL ALITY IS A CALCU LATIO N UTILI ZING THE SERUM /PLAS MA SODIU M, GLUCO SE AND UREA NITRO GEN (BUN) LEVEL S. FOR THE MOST ACCUR ATE RESUL T A MEASU RED SERUM OSMOL ALITY IS SUGGE STED. Not Available [facility] (Lab Registration) [address], [place], [address], 02/22/2025 12:54:36 02/23/20 25 02/22/2025 COMP METAB OLIC PANEL total protein 7.5 g/dL 6.4-8. 2 Not Available [facility] (Lab Registration) [address], [place], [address], 02/22/2025 12:54:36 02/23/20 25 02/22/2025 COMP METAB OLIC PANEL albumin 3.4 g/dL 3.4-5. 0 Not Available [facility] (Lab Registration) [address] [place], [address], 02/22/2025 12:54:36 02/23/20 25 02/22/2025 COMP METAB OLIC PANEL calcium 9.2 mg/dL 8.5-10 .1 Not Available [facility] (Lab Registration) [address] [place], [address], 02/22/2025 12:54:36 02/23/20 25 02/22/2025 COMP METAB OLIC PANEL corrected calcium 9.7 mg/dL 8.5-10 .1 Not Available [facility] (Lab Registration) [address] [place], [address], 02/22/2025 12:54:36 02/23/20 25 02/22/2025 COMP METAB OLIC PANEL bilirubin total 0.4 mg/dL 0.4-1. 5 Not Available [facility] (Lab Registration) [address] [place], [address], 02/22/2025 12:54:36 02/23/20 25 02/22/2025 COMP METAB OLIC PANEL AST (SGOT) 33 U/L 15-37 Not Available [facility] (Lab Registration) [address] [place], [address], 02/22/2025 12:54:36 02/23/20 25 02/22/2025 COMP METAB OLIC PANEL ALT (SGPT) 42 U/L 12-78 Not Available [facility] (Lab Registration) [address] [place], [address], 02/22/2025 12:54:36 02/23/20 25 02/22/2025 COMP METAB OLIC PANEL alk phosphatase 96 U/L 50-170 Not Available [facility] (Lab Registration) [address] [place], [address], 02/22/2025 12:54:36 02/23/20 25 02/22/2025 COMP METAB OLIC PANEL note Unles s other pryor noted testi ng perfo rmed at: [facility] [address] [place] [address] [phone] Dixon delgado MD CLIA: [id number] Not Available [facility] (Lab Registration) [address] [facility], [place], [address], 02/22/2025 12:54:36 02/01/20 25 01/30/2025 imagi ng inter preta tion No observ ation record ed. [facility] [address], [place], [address], 01/31/2025 08:18:42 Result Notes None recorded. Problems Name Problem SNOMED Code Status Onset Date Resolution Date Notes Provider Name and Address Organization Details Recorded Time Chronic congestive heart failure 63591670 Active 2024 Melly Jonodini null, [place] - [facility] - [place] & [place] 14:21:59 Chronic alcoholism in remission 149922611 Active 2024 Melly Jonodini null, [place] - [facility] & [place] 14:22:11 Atrial fibrillati on 22967154 Active 2024 Melly Jonodini null, [place] - [facility] & [place] 14:22:22 Localized edema 917105652 Active 2024 Melly Jonodini null, [place] [facility] & [place] 14:22:43 Hyperglyce panda due to type 2 diabetes mellitus 9351623745772 09 Active 2024 Melly Jonodini null, [place] - [facility] & [place] 14:23:06 Mixed hyperlipid emia 320133033 Active 2024 Melly Pardini null, [place] - [facility] & [place] 14:23:16 Insomnia 981519602 Active 2024 Melly beltrán, JONAH - [facility] - [place] & [place] 14:23:30 Cigarette smoker 69771277 Active 2024 Melly beltrán, JONAH - [facility] - [place] & [place] 14:23:38 Alcoholism 6225527 Active 2024 Melly beltrán, JONAH - [facility] - [place] & [place] 14:28:21 Hyponatrem ia 47587881 Active 2024 Dat Whitaker MD [address] [place] [address], [phone] [facility] JONAH Macedo [facility] & [place] 09:00:38 Problem Notes None recorded. Procedures Surgical History Date Name Laterality Status Provider Name and Address Organization Details Recorded Time cardiac catheterization completed [facility] JONAH SIERRA [facility] & [place] 02/08/2025 14:25:24 cardioversion completed Mellyjorge Lr JONAH Macedo [facility] & [place] 02/08/2025 14:25:33 repair of tendon completed [facility] JONAH Macedo [facility] & [place] 02/08/2025 14:25:41 Imaging Results None recorded. Procedure [...] Not Available Not Available No t Available metformin ER 500 mg tablet,exte nded release 24 hr Take 1 tablet every day by oral route. 02/14 completed Not Available Not Available Not Available Ventolin HFA 90 mcg/actuati on aerosol [...] Details Last Updated DateTime 5 175.26 cm 24.5 kg/m2 87248.9 g 97.9 [degF] 91 % 91 % 82 /min 16 /min 101 mm[Hg] 58 mm[Hg] Melly Juarez [facility] & [place] 5 14:20:45 Date Recorded Body height Body mass index (BMI) Body weight Body temperature Heart rate Respiratory rate Oxygen saturation Oxygen saturation in Arterial blood by Pulse oximetry Systolic blood pressure Diastolic blood pressure Provider Name and Address Organization Details Last Updated DateTime 5 175.26 cm 24.8 kg/m2 54286.2 4 g 98.2 [degF] 57 /min 16 /min 94 % 94 % 133 mm[Hg] 75 mm[Hg] Melly Juarez [facility] & [place] 5 08:42:30 Date Recorded Body height Body mass index (BMI) Body weight Body temperature Oxygen saturation Oxygen saturation in Arterial blood by Pulse oximetry Heart rate Respiratory rate Systolic blood pressure Diastolic blood pressure Provider Name and Address Organization Details Last Updated DateTime 5 175.26 cm 24.4 kg/m2 50269.7 4 g 97.9 [degF] 94 % 94 % 62 /min 14 /min 134 mm[Hg] 72 mm[Hg] Melly Juarez [facility] & [place] 5 09:54:49 Social History Question Answer Notes LastModified by Organizat ion Details LastModified Time Tobacco Smoking Status Current Every Day [facility] [place] 02/08/2025 14:24:19 Do You Have An Advance [...] Do You Have A Medical Power Of Unloader Operator? No Information not available 02/08/2025 Do You [...] Status Question Answer Note LastModified by Organizat [employer] Details LastModified Time Do you use any [...] anxious, or unable to sleep at night)? 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 I will refill his medication s as requested. [id number] Dat Whitaker MD [address] [place] [address] 02/14/2025 08:36:11 02/14/2025 09:15:47 Screening for malignant neoplasm of colon 853390923 Z12.11 will order a Cologuard today. Hyponatremia 60468127 E8 7.1 patient has been advised to add salt to food As tolerated for a week. Will recheck his sodium in a week. If we have to, we may need to adjust his medication . Hyperglyce panda due to type 2 diabetes mellitus 3650635441 54009 E11.65 patient to continue with Jardiance. Insomnia 676993715 G47.0 0 patient is taking melatonin. Mixed hyperlipidemia 267 299813 E78.2 Review of patient's lipid panel reveals good control. Patient has been advised to continue with his atorvastat in [id number] Dat Whitaker MD [address] [place] [address] 02/22/2025 09:39:03 02/22/2025 10:37:49 Hyponatremia 71330591 E87.1 patient has been advised to add [...] Member ID Guarantor Name 02/22/2025 1 [employer] [facility] (MEDICAID HMO) Harshad Almendarez [id number] Harshad Almendarez Notes Date Note Type Note Provider Name and Address Organization Details Recorded Time 02/08/2025 text/html this is a new patient who presents today to establish care. prior to this patient has not had a PCP. He states that he was seen at [facility] and diagnosed with atrial fib and congestive [...] day at this time. Dat Whitaker MD [address] [place] [address], [phone], [facility] & [place] 02/08/2025 15:26:04 02/14/2025 text/html Patient presents today to discuss results of lab work. We have also had a chance to review his records from [facility]. Lab work done on patient on 02/08/2025 [...] care of cardiology in Hui Whitaker MD [address] [place] [address], [phone], [facility] & [place] 02/14/2025 09:02:59 02/22/2025 text/html patient presents today to follow-up on his electrolyte abnormalities. Patient was seen last week. At the time he was hyponatremic. He was advised to add Salt to food as tolerated. Will recheck his lab work today.. Dat Whitaker MD [address] [place] [address], [phone], [place] - [facility] - [place] & [place] 02/22/2025 10:19:52
--- OUTSIDE RECORDS SUMMARY | 2025-03-08 10:17 | XMS_ITS | Continuity of Care Document ---
Author Organization [facility] Address [address] [place] [address] Care Team Providers Care Motor Teacher Name Role Phone DAT WHITAKER Primary Care Provider [phone] Assessment No assessment recorded. Plan of Treatment [...] mcg powder for inhalatio n [address] [facility]Pharmacy #3016, [address] [place], [address], 02/08/2025 14:48:40 Eliquis 5 mg tablet 2024 025 [facility] [address] [place], [address], 02/08/2025 14:51:54 aspirin 81 mg tablet,de layed release 2024 025 [facility] [address] [place], [address], 02/08/2025 14:51:52 atorvasta tin 40 mg tablet 2024 025 [facility] [address] [place], [address], 02/08/2025 14:51:52 Entresto 24 mg-26 mg tablet 2024 025 [facility] [address] [place], [address], 02/08/2025 14:51:53 Jardiance 10 mg tablet 2024 025 [facility] [address] [place], [address], 02/08/2025 14:51:52 spironola ctone 25 mg tablet 2024 025 [facility], [address] [place], [address], 02/08/2025 14:51:52 Patient TargetsNo targets recorded. Patient InstructionsNo instructions recorded. Reason for Referral None Reported. Results Created Date Observation Date Name Description Value Unit Range Abnormal Flag Note LastModifiedBy Organization Detail LastModifiedTime 02/01/2001/30/2025 imagi ng inter preta tion No observ ation record ed. [facility] [address], [place], [address], 01/31/2025 08:18:42 Result Notes None recorded. Problems Name Problem SNOMED Code Status Onset Date Resolution Date Notes Provider Name and Address Organization Details Recorded Time Chronic congestive heart failure 01174973 Active 2024 Melly Juarez null, [place] - [facility] & [place] 14:21:59 Chronic alcoholism in remission 286579092 Active 2024 Melly Juarez null, [place] & [place] 14:22:11 Atrial fibrillati on 66802064 Active 2024 Melly Lri null[place] [facility] [facility] & [place] 14:22:22 Localized edema 923341357 Active 2024 Melly Lri null[place] & [place] 14:22:43 Hyperglyce panda due to type 2 diabetes mellitus 4034724189200 09 Active 2024 Melly Lri null, [place] [facility] [facility] & [place] 14:23:06 Mixed hyperlipid emia 501200834 Active 2024 Melly Juarez null[place] & [place] 14:23:16 Insomnia 452238091 Active 2024 Mel[place] Ju[place] null[place] [facility] & [place] 14:23:30 Cigarette smoker 20700099 Active 2024 Melly Lri null[place] & [place] 14:23:38 Alcoholism 8919560 Active 2024 Melly [place] null, [place] [facility] & [place] 14:28:21 Hyponatrem ia 22811754 Active 2024 Dat Whitaker MD [address] [place] [address], [address] , [place] - [facility] & [place] 09:00:38 Problem Notes None recorded. Procedures Surgical History Date Name Laterality Status Provider Name and Address Organization Details Recorded Time cardiac catheterization completed Melly Juarez [place] [facility] & [place] 02/08/2025 14:25:24 cardioversion completed [facility] Ann [place] - [facility] & [place] 02/08/2025 14:25:33 repair of tendon completed [facility] Be [place] - [place] [facility] & [place] 02/08/2025 14:25:41 Imaging Results None recorded. Procedure [...] Last Updated DateTime 175.26 cm 24.5 kg/m2 57969.9 g 97.9 [degF] 91 % 91 % 82 /min 16 /min 101 mm[Hg] 58 mm[Hg] Melly MCKENZIE [facility] & [place] 14:20:45 Social History Question Answer Notes LastModified by Organizat ion Details LastModified Time Tobacco Smoking Status Current Every Day Smoker Melly Juarez null, [place] Macedo [facility] & [place] 02/08/2025 14:24:19 Do You Have An Advance Directive? No Information not available 02/08/2025 Are You Blind Or Do You Have Difficulty Seeing? No Information not available 02/08/2025 What Is Your Level Of Caffeine Consumption? Occasional Information not available 02/08/2025 In The 14 Days Before Symptom Onset, Have You Had Close Contact With A [facility] [employer] COVID-19 While That Case Was Ill? No [...] Do You Have A Medical Power Of In Mold Coater? No Information not available 02/08/2025 Do You [...] Functional Status Question Answer Note LastModified by Arche[employer] Details LastModified Time Do you use any [...] Mental Status Question Answer Note LastModified by [employer] Details LastModified Time Do you feel stressed (tense, restless, nervous, or anxious, or unable to sleep at night)? [id number] Information not available 02/08/2025 Do you have [...] SNOMED-CT Code Diagnosis ICD10 Code Diagnosis Note [id number] Dat Whitaker MD [facility] [address] [facility] [place] [address] 02/08/2025 13:52:41 02/08/2025 14:55:15 Screening for malignant neoplasm of colon 226803101 Z12.11 Diabetes m ellitus screening 941600110 Z13.1 Hyperlipid emia screening 715436162 Z13.220 Prostate s pecific antigen measurement 26047748 Z12.5 will check patient's PSA Thyroid di sorder screening 049929986 Z13.29 will obtain a TSH Moderate c hronic obstructive pulmonary disease 367375198 J44.9 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 prior to this patient has not had a PCP. He states that he was seen at [facility] and diagnosed with atrial fib and congestive heart failure. This occurred about a month ago. He is under the care of Dr. Noawk. He admits to being an alcoholic who has not had a drink in the last 4 weeks. He also smokes 2 packs a day. He states that he has cut down to 1 pack a day at this time. Dat Whitaker MD [address] [facility], [place], [address], [facility] - [place] & [place] 02/08/2025 15:26:04
== END 2025-03-08 23:59 | disposition home or self-care (01) ==
LOC: PREOP 10:15
PROVIDERS: PCP Emergency Medicine; Visit Provider Internal Medicine Pulmonary Disease
DX: R69 Illness, unspecified (principal)

== ENCOUNTER 2025-03-12 08:30 | Day surgery (SDC) | payer OTHER, SELFPAY ==
[2025-03-02 13:31] VITALS: BMI 25.0
[2025-03-12] VITALS (10 sets, daily range): BP systolic 120–160; BP diastolic 67–78; PULSE 53–60; RESP 16–19; TEMP 36.1–36.6; O2SAT 90–97
--- NOTE | 2025-03-12 09:46 | EXP.ANES.CKL ---
[facility] Disclaimer: The information contained in this section may have been updated after the patient was seen, as this information can be updated by other users. Medical History Paroxysmal atrial flutter Paroxysmal atrial fibrillation Non-STEMI (non-ST elevated myocardial infarction) Cardiomyopathy Angina pectoris Acute HFrEF (heart failure with reduced ejection fraction) Mediastinal lymphadenopathy Hilar lymphadenopathy Smoking greater than 30 pack years Surgical History History of cardiac cath History of hand surgery Family History Other Family history of COPD (chronic obstructive pulmonary disease) Family history of cancer Social History Smoking Status: Current every day smoker alcohol intake: former substance use type: denies use current occupational status: unemployed and disabled Travel in the last 8 weeks?: None caffeine: No Have you lived/traveled outside US in past 30 days?: No Contact w/someone who lives/traveled outside US past 30 days?: No Exposure to someone with infectious disease in past 14 days?: No Do you have a fever (greater than 100.4 F or 38 C)?: No Have you tested positive for COVID-19?: No Exposed to someone with COVID-19 in past 14 days?: No Do you have a sore throat?: No Do you have a cough?: No Do you have any weakness?: No Do you have any diarrhea?: No Are you experiencing any unusual bleeding?: No Do you have any muscle aches/pain?: No Do you have any abdominal pain?: No Are you experiencing loss of taste or smell?: No [facility] Anesthesia Checklist Patient Identification Patient Identification: Arm Band and Verbal (Name & ) Structural Data Admitted From: Home Planned Operative Procedure/s: EBUS Consent for Planned Operative Procedure(s) Verified: Yes Verified Documents: Surgical Consent and History and Physical NPO Status Verified Time NPO: 00:00 Additional verifications Anesthesia Reactions: No Hx Blood Transfusions: No Blood Transfusion Reaction: No Airway Assessment Mallampati Score:: Class II Dentition: Edentulous Neurological Assessment Level of Consciousness: Awake, Alert and Appropriate Hx Seizures: No Anesthesia Plan Anesthesia Risk discussed: Yes Anesthesia Plan: Verified ASA Class: IV Anesthesia Type: MAC
--- NOTE | 2025-03-12 11:20 | EXP.ANES.I ---
[facility] Anesthesia Record Part I Anesthesia Record I Intake, IV Amount: 600 Hydration: Adequate Estimated blood loss (mL): 10 Urine output (mL): 0 Blood Pressure: 160/78 SaO2: 97 Pulse Rate: 54 Airway Patency: Patent Respiratory Rate: 18 Temperature: 98 F Patient is:: Awake and Stable Stable to PACU at:: 11:28
--- NOTE | 2025-03-12 11:30 | XR_ITS ---
FINAL REPORT CLINICAL HISTORY: post-bronch COMPARISON: None FINDINGS: The heart size is normal. The mediastinum is normal. There is no focal infiltrate or edema. There are no pleural effusions. There is no pneumothorax. There is no osseous abnormality. IMPRESSION: No acute cardiopulmonary process. No pneumothorax post bronchoscopy. Reviewed, Interpreted and Dictated by Jose Andrea MD Transcribed by Kelsey Zhang Authenticated and . [facility]
[2025-03-12 11:32] LABS: POC Glucose,Bedside 125 (70-110)
--- NOTE | 2025-03-12 12:06 | P.PCN_ITS ---
Procedure: Date: 03/12/25 Patient Date of :: 1970 Procedure Performed:: Bronchoscopy endobronchial ultrasound-guided fine-needle aspiration of lymphnode Indications:: Lymphadenopathy Performing Provider:: Corazon Chand MD Referring Provider:: Dr: Dat Guajardo MD Sedation:: General anesthesia Procedure:: Bronchoscopy endobronchial ultrasound-guided fine-needle aspiration of lymphnode: A clean EBUS bronchoscopy was advanced the ET tube and lymph node surveillance was performed. Significant lymphadenopathy was only noted at station 7. The previously noted 4R and station 10 significantly decreased in size not beyond the threshold to perform EBUS FNA. Limited airway examination with EBUS bronchoscopy appeared grossly normal with no obvious abnormalities. A total of 6 passes were performed at lymphnode station 7. Five passes in [facility] for cytopathologic examination with remaining [facility]. Patient tolerated the procedure well with no acute immediate complication Findings:: Please see the procedure note Recommendations:: Postoperative bronchoscopy instructions follow in pulmonary clinic in 5-7 days Complications:: No acute immediate complications Estimated blood obtained (mL): 2
--- NOTE | 2025-03-12 16:02 | EXP.ANES.II ---
[facility] Anesthesia Record Part II Anesthesia Record Part II Discharge Time: 12:19 Destination: Surgical Day Care (OP Surgery) PACU nurse assessment reviewed?: Yes Patient Condition:: Good Anesthesia Complications:: None Swallowing reflex intact?: Yes Airway Patency: Patent Cyanosis?: No Blood Pressure: 124/69 SaO2: 94 Respiratory Rate: 18 Pulse Rate: 56 Temperature: 97.0 F Mental Status: Alert & Oriented Pain level:: 0 Nausea and/or vomitting:: None Intake, IV Amount: 0 Hydration: Adequate
[2025-03-13 08:22] LABS: POC Glucose,Bedside 162 (70-110)
== END 2025-03-12 12:29 | disposition home or self-care (01) ==
PROVIDERS: PCP Emergency Medicine; Visit Provider Internal Medicine Pulmonary Disease
PROC: BB4BZZZ Ultrasonography of Pleura (ICD-10-PCS; CPT 31652; principal; 2025-03-12 10:00)
DX: R59.0 Localized enlarged lymph nodes (principal); J43.9 Emphysema, unspecified; R91.1 Solitary pulmonary nodule; R06.09 Other forms of dyspnea; F17.210 Nicotine dependence, cigarettes, uncomplicated; I50.20 Unspecified systolic (congestive) heart failure; E78.5 Hyperlipidemia, unspecified; I48.0 Paroxysmal atrial fibrillation; I48.92 Unspecified atrial flutter; I25.2 Old myocardial infarction; I42.9 Cardiomyopathy, unspecified; Z79.82 Long term (current) use of aspirin; Z79.01 Long term (current) use of anticoagulants; Z79.899 Other long term (current) drug therapy; Z98.61 Coronary angioplasty status; Z82.5 Family history of asthma and other chronic lower respiratory diseases; Z80.9 Family history of malignant neoplasm, unspecified
CPT/HCPCS: 31652; 71045; 82962; J1100; J2003; J2250; J2371; J2405; J2704; J3010

== ENCOUNTER 2025-03-15 07:39 | Outpatient (CLI) | payer OTHER, SELFPAY ==
--- OUTSIDE RECORDS SUMMARY | 2025-03-15 07:42 | XMS_ITS | Continuity of Care Document ---
Author Organization [facility] Address [address] [place] [address] Care Team Providers Care Fisheries Specialist Name Role Phone DAT WHITAKER Primary Care Provider [phone] Assessment No assessment recorded. Plan of Treatment [...] mcg powder for inhalatio n 2024 025 [facility]/Pharmacy #3016, [address] [place], [address], 02/08/2025 14:48:40 Eliquis 5 mg tablet 2024 025 [facility] [address] [place], [address], 02/08/2025 14:51:54 aspirin 81 mg tablet,de layed release 2024 025 [facility] [address] [place], [address], 02/08/2025 14:51:52 atorvasta tin 40 mg tablet 2024 025 [facility] [address] [place], [address], 02/08/2025 14:51:52 Entresto 24 mg-26 mg tablet 2024 025 [facility] [address] [place], [address], 02/08/2025 14:51:53 Jardiance 10 mg tablet 2024 025 [facility] [address] [place], [address], 02/08/2025 14:51:52 spironola ctone 25 mg tablet 2024 025 [facility] [address] [place], [address], 02/08/2025 14:51:52 Patient TargetsNo targets recorded. Patient InstructionsNo instructions recorded. Reason for Referral None Reported. Results Created Date Observation Date Name Description Value Unit Range Abnormal Flag Note LastModifiedBy Organization Detail LastModifiedTime 02/01/2001/30/2025 imagi ng inter preta tion No observ ation record ed. bsokan [facility] [address], [place], [address], 01/31/2025 08:18:42 03/12/20 25 03/12/2025 imagi ng inter preta tion No observ ation record ed. tpardini [facility] [address], [place], [address], 03/12/2025 14:22:24 Result Notes None recorded. Problems Name Problem SNOMED Code Status Onset Date Resolution Date Notes Provider Name and Address Organization Details Recorded Time Chronic congestive heart failure 78393041 Active 2024 Melly Lri null, [place] 14:21:59 Chronic alcoholism in remission 881257834 Active 2024 Melly Jonodini [place] 14:22:11 Atrial fibrillati on 59586943 Active 2024 Melly [place]od[place] 14:22:22 Localized edema 991756566 Active 2024 Melly Pardini [place] 14:22:43 Hyperglyce panda due to type 2 diabetes mellitus 3420483296093 09 Active 2024 Melly [place] 14:23:06 Mixed hyperlipid emia 263537165 Active 2024 Melly [place]od[place] 14:23:16 Insomnia 528292246 Active 2024 Melly [place]od[place] 14:23:30 Cigarette smoker 96402782 Active 2024 Melly [place]od[place] 14:23:38 Alcoholism 2940491 Active 2024 Melly [place] 14:28:21 Hyponatrem ia 87017608 Active 2024 Dat Whitaker MD [address] [place] [address], [phone] [facility] [place] - [place] [facility] & [place] 09:00:38 Problem Notes None recorded. Procedures Surgical History Date Name Laterality Status Provider Name and Address Organization Details Recorded Time cardiac catheterization completed [facility] & [place] 02/08/2025 14:25:24 cardioversion completed [facility] & [place] 02/08/2025 14:25:33 repair of tendon completed [facility] & [place] 02/08/2025 14:25:41 Imaging Results None recorded. Procedure [...] Last Updated DateTime 175.26 cm 24.5 kg/m2 07413.9 g 97.9 [degF] 91 % 91 % 82 /min 16 /min 101 mm[Hg] 58 mm[Hg] Melly De La Cruzwaqar SIERRA [facility] & [place] 14:20:45 Social History Question Answer Notes LastModified by Organizat ion Details LastModified Time Tobacco Smoking Status Current Every Day Smoker Melly De La Cruzwaqar beltrán, [place] [facility] & [place] 02/08/2025 14:24:19 Do You Have An Advance [...] Do You Have A Medical Power Of Level Vial Grinder? No Information not available 02/08/2025 Do You [...] anxious, or unable to sleep at night)? [id number] Information not available 02/08/2025 Do you have [...] SNOMED-CT Code Diagnosis ICD10 Code Diagnosis Note [id number] Dat Whitaker MD 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 prior to this patient has not had a PCP. He states that he was seen at [facility] and diagnosed with atrial fib [...] day at this time. Dat Whitaker MD [address] [place] [address], [phone], [facility] - [place] - [place] & [place] 02/08/2025 15:26:04
--- OUTSIDE RECORDS SUMMARY | 2025-03-15 07:42 | XMS_ITS | Continuity of Care Document ---
Author Organization [facility] Address [address] [place] [address] Care Team Providers Care Heating Unit Installer Name Role Phone DAT WHITAKER Primary Care Provider Assessment No assessment recorded. Plan of Treatment Reminders Order Date Submit Date Provider Last Modified By Organization Details Last Modified Time Details Appointments OV EST 30 2024 08:00A M CHARLEE DUMONT NP Not available Not available Not available Lab CMP, serum or plasma 2024 025 [facility] (Laboratory), [address] [place] [address] Dr [place], [address], 02/22/2025 12:54:36 Referral None recorded . Procedures [...] tion No observ ation record ed. bsokan [facility] [address], [place], [address], 01/31/2025 08:18:42 03/12/20 25 03/12/2025 imagi ng inter preta tion No observ ation record ed. tpardini [facility] [address], [place], [address], 03/12/2025 14:22:24 Result Notes None recorded. Problems Name Problem SNOMED Code Status Onset Date Resolution Date Notes Provider Name and Address Organization Details Recorded Time Chronic congestive heart failure 82246801 Active 2024 Melly Ju[place] null, [place] [facility] & [place] 14:21:59 Chronic alcoholism in remission 121634520 Active 2024 Melly [place] & [place] 14:22:11 Atrial fibrillati on 63692093 Active 2024 Melly Lri null[place] & [place] 14:22:22 Localized edema 585233441 Active 2024 Melly [place] null[place] 14:22:43 Hyperglyce panda due to type 2 diabetes mellitus 8632743545285 09 Active 2024 Melly [place] 14:23:06 Mixed hyperlipid emia 195370975 Active 2024 Melly [place] 14:23:16 Insomnia 801512967 Active 2024 Melly [place] 14:23:30 Cigarette smoker 61292095 Active 2024 Melly [place] & [place] 14:23:38 Alcoholism 4832214 Active 2024 Melly [place] 14:28:21 Hyponatrem ia 62918058 Active 2024 Dat Whitaker MD [address] [place] [address], [address] , [place] & [place] 09:00:38 Problem Notes None recorded. Procedures Surgical History Date Name Laterality Status Provider Name and Address Organization Details Recorded Time cardiac catheterization completed [facility] [place] & [place] 02/08/2025 14:25:[address] [facility] [place] & [place] 02/08/2025 14:25:[address] [facility], [place] & [place] 02/08/2025 14:25:41 Imaging Results None [...] Organization Details Last Updated DateTime 175.26 cm 24.4 kg/m2 40090.7 4 g 97.9 [degF] 94 % 94 % 62 /min 14 /min 134 mm[Hg] 72 mm[Hg] Melly Ann SIERRA [facility] & [place] 09:54:49 Social History Question Answer Notes LastModified by Organizat ion Details LastModified Time Tobacco Smoking Status Current Every Day Smoker Melly De La Cruzwaqar beltrán, [place] SIERRA [facility] & [place] 02/08/2025 14:24:19 Do You [...] Do You Have A Medical Power Of Weapons Mechanic? No Information not available 02/08/2025 Do You [...] anxious, or unable to sleep at night)? 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 I will refill his medication s as requested. [id number] Dat Whitaker MD [address] [place] [address] 02/14/2025 08:36:11 02/14/2025 09:15:47 Screening for malignant neoplasm of colon 612186998 Z12.11 will order a Cologuard today. Hyponatremia 05741425 E8 7.1 patient has been advised to add salt to food As tolerated for a week. Will recheck his sodium in a week. If we have to, we may need to adjust his medication . Hyperglyce panda due to type 2 diabetes mellitus 4001016480 85995 E11.65 patient to continue with Jardiance. Insomnia 825255638 G47.0 0 patient is taking melatonin. Mixed hyperlipidemia 267 071029 E78.2 Review of patient's lipid panel reveals good control. Patient has been advised to continue with his atorvastat in [id number] Dat Whitaker MD [address] [place] [address] 02/22/2025 09:39:03 02/22/2025 10:37:49 Hyponatremia 34280210 E87.1 patient has been advised to add [...] Member ID Guarantor Name 02/22/2025 1 [employer] [facility] (MEDICAID HMO) Harshad Almendarez [id number] Harshad Almendarez Notes Date Note Type Note Provider Name and Address Organization Details Recorded Time 02/22/2025 text/html patient presents today to follow-up on his electrolyte abnormalities. Patient was seen last week. At the time he was hyponatremic. He was advised to add Salt to food as tolerated. Will recheck his lab work today.. Dat Whitaker MD [address] [place] [address], [phone] [place] & [place] 02/22/2025 10:19:52
--- OUTSIDE RECORDS SUMMARY | 2025-03-15 07:42 | XMS_ITS | Continuity of Care Document ---
Author Organization - [facility] Address [address] [place] [address] Care Team Providers Care Software Recruiter Name Role Phone DAT WHITAKER Primary Care Provider [phone] Assessment Encounter Date Assessment Date Assessment LastModified [...] occult blood screening , QL, stool 2024 06/04/ 025 tpaini [facility] (Cologuard Orders Only), [address], [address], [place], [address], 03/14/2025 07:46:52 Referral None recorded. Procedures None recorded. Surgeries None recorded. Imaging None recorded. Medication Orders None recorded. Patient TargetsNo targets recorded. Patient InstructionsNo instructions recorded. Reason for Referral None Reported. Results Created Date Observation Date Name Description Value Unit Range Abnormal Flag Note LastModifiedBy Organization Detail LastModifiedTime 02/01/20 25 01/30/2025 imagi ng inter preta tion No observ ation record ed. [facility] [address], [place], [address], 01/31/2025 08:18:42 03/12/20 25 03/12/2025 imagi ng inter preta tion No observ ation record ed. [facility] [address] [place] [address], [address], 03/12/2025 14:22:24 Result Notes None recorded. Problems Name Problem SNOMED Code Status Onset Date Resolution Date Notes Provider Name and Address Organization Details Recorded Time Chronic congestive heart failure 77850358 Active 2024 Melly Jonodini null, [place] - [facility] - [place] & [place] 14:21:59 Chronic alcoholism in remission 649817079 Active 2024 Melly [place] [facility] [place] 14:22:11 Atrial fibrillati on 26856302 Active 2024 Melly [place] [facility] [place] 14:22:22 Localized edema 698293044 Active 2024 Melly [place] [facility] [place] 14:22:43 Hyperglyce panda due to type 2 diabetes mellitus 1849178735069 09 Active 2024 Melly [place] [facility] [place] 14:23:06 Mixed hyperlipid emia 617769667 Active 2024 Melly [place] [facility] [place] 14:23:16 Insomnia 145327675 Active 2024 Melly [place] [facility] [place] 14:23:30 Cigarette smoker 79245333 Active 2024 Melly [place] [facility] [place] 14:23:38 Alcoholism 3569417 Active 2024 Melly Pardini null, [place] - [facility] & [place] 14:28:21 Hyponatrem ia 11146190 Active 2024 Dat Whitaker MD [address] [place] [address], [id number] , [place] [facility] & [place] 09:00:38 Problem Notes None recorded. Procedures Surgical History Date Name Laterality Status Provider Name and Address Organization Details Recorded Time cardiac catheterization completed [facility] [place] - [facility] & [place] 02/08/2025 14:25:24 cardioversion completed [facility] [place] [facility] & [place] 02/08/2025 14:25:33 repair of tendon completed [facility] [place] [facility] & [place] 02/08/2025 14:25:41 Imaging Results None recorded. Procedure [...] Updated DateTime 5 175.26 cm 24.8 kg/m2 94967.2 4 g 98.2 [degF] 57 /min 16 /min 94 % 94 % 133 mm[Hg] 75 mm[Hg] Melly Juarez [place] - [facility] - [place] & [place] 5 08:42:30 Social History Question Answer Notes LastModified by Organizat ion Details LastModified Time Tobacco Smoking Status Current Every Day Smoker Melly Juarez [facility], [facility] & [place] 02/08/2025 14:24:19 Do You Have An Advance [...] Do You Have A Medical Power Of Building Principal? No Information not available 02/08/2025 Do You [...] Functional Status Question Answer Note LastModified by [employer] ion Details LastModified Time Do you use [...] anxious, or unable to sleep at night)? 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 I will refill his medication s as requested. [id number] Dat Whitaker MD [address] [place] [address] 02/14/2025 08:36:11 02/14/2025 09:15:47 Screening for malignant neoplasm of colon 959416216 Z12.11 will order a Cologuard today. Hyponatremia 07861923 E8 7.1 patient has been advised to add salt to food As tolerated for a week. Will recheck his sodium in a week. If we have to, we may need to adjust his medication . Hyperglyce panda due to type 2 diabetes mellitus 1955759440 37310 E11.65 patient to continue with Jardiance. Insomnia 457720989 G47.0 0 patient is taking melatonin. Mixed hyperlipidemia 267 067076 E78.2 Review of patient's lipid panel reveals good control. Patient has been advised to continue with his atorvastat in Health Concerns Section Related Observation LastModified by Organization Shania dawn LastModified Time None Recorded Concern Status LastModified by Organization Details LastModified Time None Recorded Payers Encounter Date Sequence Insurance Name Policy Number Policy Foreman Covered Member ID Foreman Member ID Guarantor Name 02/14/2025 1 [employer] [facility] (MEDICAID HMO) Harshad Almendarez [id number] Harshad Almendarez Notes Date Note Type Note Provider Name and Address Organization Details Recorded Time 02/14/2025 text/html Patient presents today to discuss results of lab work. We have also had a chance to review his records from [facility]. Lab work done on patient on [...] care of cardiology in [place] Whitaker MD [address] [place] [address], [phone], [facility] - [place] & [place] 02/14/2025 09:02:59
--- OUTSIDE RECORDS SUMMARY | 2025-03-15 07:43 | XMS_ITS | Data Portability ---
Author Organization [facility] Address [address] [place] [address] Care Team Providers Care Electrifier Operator Name Role Phone DAT WHITAKER Primary Care [...] plasma 2024 025 [facility] (Laboratory), [address] [place] [address] , [place], [address], 02/22/2025 12:54:36 noninvasi ve colorecta l cancer DNA + occult blood screening , QL, stool 2024 025 [facility] [employer] (Cologuard Orders Only), [address], [address], [place], [address], 03/14/2025 07:46:52 lipid panel, serum 2024 025 ELVIE Not [...] mcg-25 mcg powder for inhalatio n 2024 [facility], [address] [place], [address], 02/08/2025 14:48:40 Eliquis 5 mg tablet 2024 025 [facility], [address] [place] [address], [address], 02/08/2025 14:51:54 aspirin 81 mg tablet,de layed release 2024 025 [facility], [address] [place] [address], [address], 02/08/2025 14:51:52 atorvasta tin 40 mg tablet 2024 025 [facility] [address] [place] [address], [address], 02/08/2025 14:51:52 Entresto 24 mg-26 mg tablet 2024 025 [facility] [address] [place] [address], [address], 02/08/2025 14:51:53 Jardiance 10 mg tablet 2024 025 [facility] #[facility], [address] [place] [address], [address], 02/08/2025 14:51:52 spironola ctone 25 mg tablet 2024 025 [facility] #[facility], [address], [place], [address], 02/08/2025 14:51:52 Patient TargetsNo targets recorded. Patient InstructionsNo instructions recorded. Reason for Referral None Reported. Results Created Date Observation Date Name Description Value Unit Range Abnormal Flag Note LastModifiedBy Organization Detail LastModifiedTime 02/09/2002/08/2025 HEMOG LOBIN A1C glycosylated hemoglobin A1C 6.8 % 4.5-6. 2 high Not Available [facility] (Lab Registration) [address], [place], [address], 02/08/2025 17:36:34 02/09/20 25 02/08/2025 HEMOG LOBIN A1C estimated average glucose 148 mg/dL 82-131 high Not Available [facility] (Lab Registration) [address], [place], [address], 02/08/2025 17:36:34 02/09/2002/08/2025 HEMOG LOBIN A1C note Unles s other pryor noted testi ng perfo rmed at: [facility] [address] [place] [address] [phone] Dixon delgado MD CLIA: [id number] Not Available [facility] (Lab Registration) [address], [place], [address], 02/08/2025 17:36:34 02/09/20 25 02/08/2025 PROST ATE SPECI FIC AG (PSA) prostate specific Ag (PSA) 0.75 NG/mL 0.0-4. 0 Not Available [facility] (Lab Registration) [address] [place], [address], 02/08/2025 17:51:45 02/09/20 25 02/08/2025 PROST ATE SPECI FIC AG (PSA) note Ly s other pryor noted testi ng perfo rmed at: [facility] [address] [place] [address] [phone] Dixon delgado MD CLIA: [id number] Not Available [facility] (Lab Registration) [address] [place], [address], 02/08/2025 17:51:45 02/09/20 25 02/08/2025 THYRO ID STIMU LATIN G HORMO NE thyroid stimulating hormone 5.19 mIU/m L 0.34-4 .80 high Not Available [facility] (Lab Registration) [address] [place], [address], 02/08/2025 17:51:47 02/09/20 25 02/08/2025 THYRO ID STIMU LATIN G HORMO NE note Ly delgado other pryor noted testi ng perfo rmed at: [facility] [address] [place] [address] [phone] Dixon delgado MD CLIA: [id number] Not Available [facility] (Lab Registration) [address], [place], [address], 02/08/2025 17:51:47 02/09/20 25 02/08/2025 COMP METAB OLIC PANEL sodium 132 mmol/ L 136-14 5 low Not Available [facility] (Lab Registration) [address] [place], [address], 02/08/2025 17:51:49 02/09/20 25 02/08/2025 COMP METAB OLIC PANEL potassium 3.5 mmol/ L 3.5-5. 1 Not Available [facility] (Lab Registration) [address] [place], [address], 02/08/2025 17:51:49 02/09/20 25 02/08/2025 COMP METAB OLIC PANEL chloride 93 mmol/ L 98-107 low Not Available [facility] (Lab Registration) [address], [place], [address], 02/08/2025 17:51:49 02/09/20 25 02/08/2025 COMP METAB OLIC PANEL carbon dioxide 31 mmol/ L 21-32 Not Available [facility] (Lab Registration) [address] [place], [address], 02/08/2025 17:51:49 02/09/20 25 02/08/2025 COMP METAB OLIC PANEL anion gap 8.0 Not Available [facility] (Lab Registration) [address] [place], [address], 02/08/2025 17:51:49 02/09/20 25 02/08/2025 COMP METAB OLIC PANEL glucose 196 mg/dL 70-110 high Not Available [facility] (Lab Registration) [address] [place], [address], 02/08/2025 17:51:49 02/09/20 25 02/08/2025 COMP METAB OLIC PANEL blood urea nitrogen 20 mg/dL 7-18 high Not Available [facility] (Lab Registration) [address] [place], [address], 02/08/2025 17:51:49 02/09/20 25 02/08/2025 COMP METAB OLIC PANEL creatinine 1.1 mg/dL 0.8-1. 3 Not Available [facility] (Lab Registration) [address] [place], [address], 02/08/2025 17:51:49 02/09/20 25 02/08/2025 COMP METAB OLIC PANEL BUN/creatini ne ratio 18.2 9-21 Not Available [facility] (Lab Registration) [address] [place], [address], 02/08/2025 17:51:49 02/09/20 25 02/08/2025 COMP METAB [...] quiles ing kiney funct ion. Not Available [facility] (Lab Registration) [address], [place], [address], 02/08/2025 17:51:49 02/09/20 25 02/08/2025 COMP METAB OLIC PANEL osmolality (calculated) 283 mOsm/ kg 275-30 1 OSMOL ALITY IS A CALCU LATIO N UTILI ZING THE SERUM /PLAS MA SODIU M, GLUCO SE AND UREA NITRO GEN (BUN) LEVEL S. FOR THE MOST ACCUR ATE RESUL T A MEASU RED SERUM OSMOL ALITY IS SUGGE STED. Not Available [facility] (Lab Registration) [address], [place], [address], 02/08/2025 17:51:49 02/09/2002/08/2025 COMP METAB OLIC PANEL total protein 8.0 g/dL 6.4-8. 2 Not Available [facility] (Lab Registration) [address], [place], [address], 02/08/2025 17:51:49 02/09/20 25 02/08/2025 COMP METAB OLIC PANEL albumin 3.2 g/dL 3.4-5. 0 low Not Available [facility] (Lab Registration) [address], [place], [address], 02/08/2025 17:51:49 02/09/20 25 02/08/2025 COMP METAB OLIC PANEL calcium 9.6 mg/dL 8.5-10 .1 Not Available [facility] (Lab Registration) [address], [place], [address], 02/08/2025 17:51:49 02/09/20 25 02/08/2025 COMP METAB OLIC PANEL corrected calcium 10.2 mg/dL 8.5-10 .1 high Not Available [facility] (Lab Registration) [address], [place], [address], 02/08/2025 17:51:49 02/09/20 25 02/08/2025 COMP METAB OLIC PANEL bilirubin total 0.6 mg/dL 0.4-1. 5 Not Available [facility] (Lab Registration) [address] [place], [address], 02/08/2025 17:51:49 02/09/20 25 02/08/2025 COMP METAB OLIC PANEL AST (SGOT) 34 U/L 15-37 Not Available [facility] (Lab Registration) [address] [place], [address], 02/08/2025 17:51:49 02/09/20 25 02/08/2025 COMP METAB OLIC PANEL ALT (SGPT) 52 U/L 12-78 Not Available [facility] (Lab Registration) [address] [place], [address], 02/08/2025 17:51:49 02/09/20 25 02/08/2025 COMP METAB OLIC PANEL alk phosphatase 97 U/L 50-170 Not Available [facility] (Lab Registration) [address] [place], [address], 02/08/2025 17:51:49 02/09/20 25 02/08/2025 COMP METAB OLIC PANEL note Unles s other pryor noted testi ng perfo rmed at: [facility] [address] [place] [address] [phone] Dixon delgado MD CLIA: [id number] Not Available [facility] (Lab Registration) [address] [place], [address], 02/08/2025 17:51:49 02/09/2002/08/2025 LIPID PANEL triglyceride 82 mg/dL 20-200 The [employer] (NYEP ) has set the follo wing guide lines for Fasti ng Trigl yceri kevon: AFSHIN L: <150 mg/dL BORDE RLINE HIGH: 150 - 199 mg/dL HIGH: 200 - 499 mg/dL VERY HIGH: > or =500 mg/dL Not Available [facility] (Lab Registration) [address] [place], [address], 02/08/2025 17:51:50 02/09/2002/08/2025 LIPID PANEL cholesterol 131 mg/dL 0-200 [employer] (NYEP ) has set the follo wing guide lines for Fasti ng Daniela stero l: JUAN ABLE: <200 mg/dL BORDE RLINE HIGH: 200 - 239 mg/dL HIGH: > or =240 mg/dL Not Available [facility] (Lab Registration) [address] [place], [address], 02/08/2025 17:51:50 02/09/2002/08/2025 LIPID PANEL HDL cholesterol 37 mg/dL 60- low [employer] (NCEP ) has set the follo wing guide lines for Fasti ng HDL Daniela stero l: LOW HDL: <40 mg/dL AFSHIN L: 40 - 60 mg/dL JUAN ABLE: >60 mg/dL Not Available [facility] (Lab Registration) [address] [place], [address], 02/08/2025 17:51:50 02/09/2002/08/2025 LIPID PANEL LDL calculated 78 mg/dL 100- low [employer] (NYEP ) has set the follo wing guide lines for Fasti ng LDL Daniela stero l: OPTIM AL: < 100 mg/dL LOW RISK: 100 - 129 mg/dL BORDE RLINE HIGH: 130 - 159 mg/dL HIGH: 160 - 189 mg/dL VERY HIGH: > or = 190 mg/dL Not Available [facility] (Lab Registration) [address] [place], [address], 02/08/2025 17:51:50 02/09/20 25 02/08/2025 LIPID PANEL chol/HDL ratio 4 -5 Not Available [facility] (Lab Registration) [address] [place], [address], 02/08/2025 17:51:50 02/09/20 25 02/08/2025 LIPID PANEL note Unles s other pryor noted testi ng perfo rmed at: [facility] [address] [place] [address] [phone] Dixon delgado MD CLIA: [id number] Not Available [facility] (Lab Registration) [address] [place], [address], 02/08/2025 17:51:50 02/09/20 25 02/08/2025 T4 FREE T4,free 1.16 NG/dL 0.76-1 .46 Effec tive today 013 new Refer ence Range . Not Available [facility] (Lab Registration) [address] [place], [address], 02/08/2025 18:14:07 02/09/20 25 02/08/2025 T4 FREE note Unles s other pryor noted testi ng perfo rmed at: [facility] [address] [place] [address] [phone] Dixon delgado MD CLIA: [id number] Not Available [facility] (Lab Registration) [address] [place], [address], 02/08/2025 18:14:07 02/23/20 25 02/22/2025 COMP METAB OLIC PANEL sodium 134 mmol/ L 136-14 5 low Not Available [facility] (Lab Registration) [address] [place], [address], 02/22/2025 12:54:36 02/23/20 25 02/22/2025 COMP METAB OLIC PANEL potassium 4.0 mmol/ L 3.5-5. 1 Not Available [facility] (Lab Registration) [address] [place], [address], 02/22/2025 12:54:36 02/23/20 25 02/22/2025 COMP METAB OLIC PANEL chloride 97 mmol/ L 98-107 low Not Available [facility] (Lab Registration) [address] [place], [address], 02/22/2025 12:54:36 02/23/20 25 02/22/2025 COMP METAB OLIC PANEL carbon dioxide 28 mmol/ L 21-32 Not Available [facility] (Lab Registration) [address] [place], [address], 02/22/2025 12:54:36 02/23/20 25 02/22/2025 COMP METAB OLIC PANEL anion gap 9.0 Not Available [facility] (Lab Registration) [address] [place], [address], 02/22/2025 12:54:36 02/23/20 25 02/22/2025 COMP METAB OLIC PANEL glucose 236 mg/dL 70-110 high Not Available [facility] (Lab Registration) [address] [place], [address], 02/22/2025 12:54:36 02/23/20 25 02/22/2025 COMP METAB OLIC PANEL blood urea nitrogen 16 mg/dL 7-18 Not Available [facility] (Lab Registration) [address] [place], [address], 02/22/2025 12:54:36 02/23/20 25 02/22/2025 COMP METAB OLIC PANEL creatinine 0.8 mg/dL 0.8-1. 3 Not Available [facility] (Lab Registration) [address] [place], [address], 02/22/2025 12:54:36 02/23/20 25 02/22/2025 COMP METAB OLIC PANEL BUN/creatini ne ratio 20.0 9-21 Not Available [facility] (Lab Registration) [address], [place], [address], 02/22/2025 12:54:36 02/23/20 25 02/22/2025 COMP METAB [...] quiles ing kiney funct ion. Not Available [facility] (Lab Registration) [address], [place], [address], 02/22/2025 12:54:36 02/23/20 25 02/22/2025 COMP METAB OLIC PANEL osmolality (calculated) 288 mOsm/ kg 275-30 1 OSMOL ALITY IS A CALCU LATIO N UTILI ZING THE SERUM /PLAS MA SODIU M, GLUCO SE AND UREA NITRO GEN (BUN) LEVEL S. FOR THE MOST ACCUR ATE RESUL T A MEASU RED SERUM OSMOL ALITY IS SUGGE STED. Not Available [facility] (Lab Registration) [address], [place], [address], 02/22/2025 12:54:36 02/23/20 25 02/22/2025 COMP METAB OLIC PANEL total protein 7.5 g/dL 6.4-8. 2 Not Available [facility] (Lab Registration) [address], [place], [address], 02/22/2025 12:54:36 02/23/20 25 02/22/2025 COMP METAB OLIC PANEL albumin 3.4 g/dL 3.4-5. 0 Not Available [facility] (Lab Registration) [address] [place], [address], 02/22/2025 12:54:36 02/23/20 25 02/22/2025 COMP METAB OLIC PANEL calcium 9.2 mg/dL 8.5-10 .1 Not Available [facility] (Lab Registration) [address] [place], [address], 02/22/2025 12:54:36 02/23/20 25 02/22/2025 COMP METAB OLIC PANEL corrected calcium 9.7 mg/dL 8.5-10 .1 Not Available [facility] (Lab Registration) [address] [place], [address], 02/22/2025 12:54:36 02/23/20 25 02/22/2025 COMP METAB OLIC PANEL bilirubin total 0.4 mg/dL 0.4-1. 5 Not Available [facility] (Lab Registration) [address] [place], [address], 02/22/2025 12:54:36 02/23/20 25 02/22/2025 COMP METAB OLIC PANEL AST (SGOT) 33 U/L 15-37 Not Available [facility] (Lab Registration) [address] [place], [address], 02/22/2025 12:54:36 02/23/20 25 02/22/2025 COMP METAB OLIC PANEL ALT (SGPT) 42 U/L 12-78 Not Available [facility] (Lab Registration) [address] [place], [address], 02/22/2025 12:54:36 02/23/20 25 02/22/2025 COMP METAB OLIC PANEL alk phosphatase 96 U/L 50-170 Not Available [facility] (Lab Registration) [address] [place], [address], 02/22/2025 12:54:36 02/23/20 25 02/22/2025 COMP METAB OLIC PANEL note Unles s other pryor noted testi ng perfo rmed at: [facility] [address] [address] [phone] Dixon delgado MD CLIA: [id number] Not Available [facility] (Lab Registration) [address], [place], [address], 02/22/2025 12:54:36 02/01/20 25 01/30/2025 imagi ng inter preta tion No observ ation record ed. [facility] [address], [place], [address], 01/31/2025 08:18:42 03/12/20 25 03/12/2025 imagi ng inter preta tion No observ ation record ed. [facility] [address], [place], [address], 03/12/2025 14:22:24 Result Notes None recorded. Problems Name Problem SNOMED Code Status Onset Date Resolution Date Notes Provider Name and Address Organization Details Recorded Time Chronic congestive heart failure 24084776 Active 2024 Melly Lri null, [place] - [facility] [place] [facility] [place] 14:21:59 Chronic alcoholism in remission 037474329 Active 2024 Melly Pardini null, [place] [facility] [place] 14:22:11 Atrial fibrillati on 00776733 Active 2024 Melly Pardini null, [place] [facility] [place] 14:22:22 Localized edema 781961108 Active 2024 Melly Pardini null, [place] [facility] [place] 14:22:43 Hyperglyce panda due to type 2 diabetes mellitus 6554879384975 09 Active 2024 Melly Pardini null, [place] [facility] [place] 14:23:06 Mixed hyperlipid emia 485749608 Active 2024 Melly beltrán, JONAH - [facility] - [place] [facility] [place] 14:23:16 Insomnia 908499003 Active 2024 Melly beltrán, JONAH - [facility] - [place] [facility] [place] 14:23:30 Cigarette smoker 76599036 Active 2024 Melly beltrán, JONAH - [facility] - [place] [facility] [place] 14:23:38 Alcoholism 6081202 Active 2024 Melly beltrán, JONAH - [facility] - [place] [facility] [place] 14:28:21 Hyponatrem ia 44345430 Active 2024 Dat Whitaker MD [address] [place] [address], [phone] , [place] JONAH Macedo [facility] [place] [facility] [place] 09:00:38 Problem Notes None recorded. Procedures Surgical History Date Name Laterality Status Provider Name and Address Organization Details Recorded Time cardiac catheterization completed MellyLuis Felipe Macedo [facility] & [place] 02/08/2025 14:25:24 cardioversion completed MellyLuis Felipe Macedo [facility] & [place] 02/08/2025 14:25:33 repair of tendon completed [facility] JONAH Macedo [facility] & [place] 02/08/2025 14:25:41 Imaging Results None recorded. Procedure [...] Updated DateTime 5 175.26 cm 24.5 kg/m2 09873.9 g 97.9 [degF] 91 % 91 % 82 /min 16 /min 101 mm[Hg] 58 mm[Hg] Melly Lrsarah JONAH [place] [facility] & [place] 5 14:20:45 Date Recorded Body height Body mass index (BMI) Body weight Body temperature Heart rate Respiratory rate Oxygen saturation Oxygen saturation in Arterial blood by Pulse oximetry Systolic blood pressure Diastolic blood pressure Provider Name and Address Organization Details Last Updated DateTime 5 175.26 cm 24.8 kg/m2 03503.2 4 g 98.2 [degF] 57 /min 16 /min 94 % 94 % 133 mm[Hg] 75 mm[Hg] Melly Lrsarah JONAH He[facility]ln [facility] & [place] 5 08:42:30 Date Recorded Body height Body mass index (BMI) Body weight Body temperature Oxygen saturation Oxygen saturation in Arterial blood by Pulse oximetry Heart rate Respiratory rate Systolic blood pressure Diastolic blood pressure Provider Name and Address Organization Details Last Updated DateTime 5 175.26 cm 24.4 kg/m2 27664.7 4 g 97.9 [degF] 94 % 94 % 62 /min 14 /min 134 mm[Hg] 72 mm[Hg] Melly Lrsarah JONAH [facility] & [place] 5 09:54:49 Social History Question Answer Notes LastModified by Organizat ion Details LastModified Time Tobacco Smoking Status Current Every Day Smoker Melly Lrsarah beltrán JONAH [place] [facility] [place] 02/08/2025 14:24:19 Do You Have An Advance [...] Do You Have A Medical Power Of Instructor Psychiatric Aide? No Information not available 02/08/2025 Do You [...] anxious, or unable to sleep at night)? 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 I will refill his medication s as requested. [id number] Dat Whitaker MD [address] [place] [address] 02/14/2025 08:36:11 02/14/2025 09:15:47 Screening for malignant neoplasm of colon 021211537 Z12.11 will order a Cologuard today. Hyponatremia 95633454 E8 7.1 patient has been advised to add salt to food As tolerated for a week. Will recheck his sodium in a week. If we have to, we may need to adjust his medication . Hyperglyce panda due to type 2 diabetes mellitus 3102413089 94565 E11.65 patient to continue with Jardiance. Insomnia 082582802 G47.0 0 patient is taking melatonin. Mixed hyperlipidemia 267 708225 E78.2 Review of patient's lipid panel reveals good control. Patient has been advised to continue with his atorvastat in [id number] Dat Whitaker MD [address] [place] [id number] 02/22/2025 09:39:03 02/22/2025 10:37:49 Hyponatremia 82972440 E87.1 patient has been advised to add [...] Member ID Guarantor Name 02/22/2025 1 [employer] [facility] (MEDICAID HMO) Harshad Almendarez [id number] Harshad Almendarez Notes Date Note Type Note Provider Name and Address Organization Details Recorded Time 02/08/2025 text/html this is a new patient who presents today to establish care. prior to this patient has not had a PCP. He states that he was seen at [facility] and diagnosed with atrial fib and [...] day at this time. Dat Whitaker MD [address] [place] [address], [phone], [facility] 02/08/2025 15:26:04 02/14/2025 text/html Patient presents today to discuss results of lab work. We have also had a chance to review his records from [facility]. Lab work done on patient on [...] currently under the care [place] Whit[place] MD [address] [place] [address], [phone], [facility] 02/14/2025 09:02:59 02/22/2025 text/html patient presents today to follow-up on his electrolyte abnormalities. Patient was seen last week. At the time he was hyponatremic. He was advised to add Salt to food as tolerated. Will recheck his lab work today.. Dat Whitaker MD [address] [place] [address], [phone], [place] - [facility] & [place] 02/22/2025 10:19:52
--- NOTE | 2025-03-15 08:00 | CA_ITS ---
APPROVED REPORT EXAM: Comprehensive 2D, Doppler, and color-flow Echocardiogram [employer] Cable[employer] Machine Operator: Nancy Schmid RT(R) Ht: 5 ft 7 in Wt: 162lbs BSA: 1.85 BP: 140/87 mmHg Indications: HFrEF, currently wearing lifevest Echo Enhancing Agent Indication: Endocardial border delineation Agent(s) / Amount(s) Used: Definity 2 cc 2D Dimensions LVEF (Redmond's) 55.10 % M: 52 - 72 LV Volume 94.40 mL M: 62 - 150 LV Volume Index 51.0 mL/m2 M: 34 - 74 EF AP4 50.70 % EF AP2 57.9 % EF BP 55.1 % GL Strain -14.6 % M-Mode Dimensions RVDd 3.50 cm (0.9-2.6) LVDd 6.00 cm (3.5-5.7) LVDs 5.00 cm (3.5-5.7) IVSd 0.86 cm (0.6-1.1) PWd 0.82 cm (0.6-1.1) EF (Teich) 34.30% FS 16.70% EDV (Teich) 180.00 mL ESV (Teich) 118.20 mL Other Information Study Quality: Fair Conclusion This is a limited TTE to evaluate for LV systolic function. Limited windows are obtained. Ultrasound enhancing agent is administered to better delineate the LV endocardial borders. The left ventricle is normal in size. There is increased LV wall thickness. There is mild global hypokinesis present. LVEF is 40-45%. Compared to prior CARSON from 01/30/2025, the LV systolic function has improved, but remains mildly reduced. Of note, the patient is in normal sinus rhythm during the image acquisition of this TTE. Electronically signed by : Jojo Mckee MD 03/15/2025 12:41:45
[2025-03-15] MEDS: DEFINITY US ECHO CONTRAST 2ML INJ 2 MG IV (08:19)
== END 2025-03-15 23:59 | disposition home or self-care (01) ==
LOC: RT 07:40
PROVIDERS: PCP Emergency Medicine; Visit Provider Nurse Practitioner Family
DX: I50.20 Unspecified systolic (congestive) heart failure (principal); R93.1 Abnormal findings on diagnostic imaging of heart and coronary circulation
CPT/HCPCS: 93308; Q9957

== ENCOUNTER 2025-05-01 13:08 | Outpatient (CLI) | payer OTHER, SELFPAY ==
[2025-05-01 14:33] LABS: Chloride 97 mmol/L (98-107); Potassium 4.1 mmoL/L (3.5-5.1); Sodium 133 mmol/L (136-145)
[2025-05-01 14:36] LABS: Anion Gap 12.1 mEq/L (5-15); Blood Urea Nitrogen 13 mg/dl (9-20); Calcium 9.4 mg/dl (8.4-10.2); Carbon Dioxide 28 mmol/L (22.0-30.0); Creatinine,Serum 0.60 mg/dl (0.66-1.25); Estimated Glomerular Filt Rate 141 ml/min (>60); GFR (African American) 171 ML/MIN (>60); Glucose 136 mg/dl (74-100)
== END 2025-05-01 23:59 | disposition home or self-care (01) ==
LOC: LAB 13:09
PROVIDERS: PCP Emergency Medicine; Visit Provider Nurse Practitioner Family
DX: I25.10 Atherosclerotic heart disease of native coronary artery without angina pectoris (principal)
CPT/HCPCS: 36415; 80048

== ENCOUNTER 2025-05-24 10:14 | Emergency (ER) | payer OTHER, SELFPAY ==
[2025-05-24 10:30] VITALS: BP 166/96; PULSE 64; RESP 20; TEMP 36.7; O2SAT 96; BMI 25.0
[2025-05-24 10:46] VITALS: BMI 25.0
--- NOTE | 2025-05-24 10:47 | XR_ITS ---
FINAL REPORT CLINICAL HISTORY: Shortness of breath FINDINGS: A single PA view of the chest was obtained. There is no prior exam for comparison. The cardiac and mediastinal silhouettes are within normal limits. The lungs are clear. There is no effusion or pneumothorax. IMPRESSION: No radiographic evidence of acute cardiac or pulmonary disease on this single view of the chest. Reviewed, Interpreted and Dictated by Norma Villa MD Transcribed by Sendy Joseph Authenticated and [facility]
[2025-05-24 10:52] LABS: Coronavirus 19, PCR Not Detected (NotDetected); Influenza A, PCR Not Detected (NotDetected); Influenza B, PCR Not Detected (NotDetected)
[2025-05-24 10:53] LABS: Hematocrit 40.6 % (42.0-52.0); Hemoglobin 14.3 g/dL (14.1-18.0); Immature Granulocytes % 0.4 %; Mean Corpuscular HGB Conc 35.2 g/dL (31.8-35.4); Mean Corpuscular Hemoglobin 32.9 pg (27.0-31.2); Mean Corpuscular Volume 93.3 fl (80-94); Nucleated Red Blood Cells % 0 %; Platelet Count 194 K/mm3 (142-424); Red Blood Count 4.35 M/mm3 (4.60-6.20); Red Cell Distribution Width-SD 47.8 fL; White Blood Count 11.2 K/mm3 (4.8-10.8)
[2025-05-24 10:59] LABS: Alanine Aminotransferase 22 U/L (12-78); Albumin Level 4.6 g/dl (3.5-5.0); Albumin/Globulin Ratio 1.3 (1.1-1.8); Alkaline Phosphatase 78 U/L (38-126); Anion Gap 12.0 mEq/L (5-15); Aspartate Amino Transferase 31 U/L (17-59); Bilirubin,Total 1.3 mg/dl (0.2-1.3); Blood Urea Nitrogen 13 mg/dl (9-20); Calcium 9.4 mg/dl (8.4-10.2); Carbon Dioxide 30 mmol/L (22.0-30.0); Chloride 92 mmol/L (98-107); Creatinine Clearance Estimated 127 mL/min (50-200); Creatinine,Serum 0.70 mg/dl (0.66-1.25); Estimated Glomerular Filt Rate 118 ml/min (>60); GFR (African American) 143 ML/MIN (>60); Globulin 3.5 g/dL (1.3-3.2); Glucose 128 mg/dl (74-100); Potassium 4.0 mmoL/L (3.5-5.1); Sodium 130 mmol/L (136-145); Total Protein,Serum 8.1 g/dl (6.3-8.2)
[2025-05-24 11:00] VITALS: BP 120/73; PULSE 62; RESP 15; O2SAT 94
[2025-05-24 11:03] LABS: D-Dimer 0.30 ug/mL (0.0-0.5)
--- NOTE | 2025-05-24 11:06 | ED_ITS ---
Discharge Plan Disposition Patient Disposition: Home, Self-Care Condition: Fair Prescriptions Prescriptions: New levofloxacin 750 mg tablet 750 mg PO DAILY 5 Days Qty: 5 0RF prednisone 50 mg tablet 50 mg PO DAILY 5 Days Qty: 5 0RF No Action amiodarone 200 mg tablet 200 mg PO DAILY 30 Days Qty: 30 3RF spironolactone 25 mg tablet 25 mg PO DAILY 30 Days Qty: 30 5RF albuterol sulfate [Ventolin HFA] 90 mcg/actuation HFA aerosol inhaler 2 inh inhalation QID PRN (Reason: shortness of breath or wheezing) 90 Days Qty: 8.5 3RF umeclidinium-vilanterol [Anoro Ellipta] 62.5-25 mcg/actuation blister with device 1 inh inhalation DAILY 90 Days Qty: 180 2RF metoprolol tartrate 100 mg tablet 100 mg PO BID 30 Days Qty: 60 5RF aspirin 81 mg tablet,delayed release (DR/EC) 81 mg PO DAILY 30 Days Qty: 30 6RF torsemide 20 mg tablet 40 mg PO BID 90 Days Qty: 360 3RF sacubitril-valsartan [Entresto] 24-26 mg tablet 1 tab PO BID 30 Days Qty: 60 8RF melatonin 5 mg tablet 5 mg PO HS PRN (Reason: sleep) Qty: 90 3RF atorvastatin 40 mg Tablet 40 mg PO HS 30 Days Qty: 30 0RF Eliquis 5 mg Tablet 5 mg PO BID 30 Days Qty: 60 0RF Jardiance 10 mg Tablet 10 mg PO DAILY 30 Days Qty: 30 0RF folic acid 1 mg Tablet 1 mg PO DAILY 30 Days Qty: 30 0RF multivitamin with folic acid [Tab-A-Nicole] 400 mcg Tablet 1 tab PO 1700 Qty: 30 0RF Referrals Follow up/Referrals: Dat Guajardo MD [Primary Care Provider, Medical] - See instructions Activity Restrictions/Add. Instructions Additional Instructions/Restrictions: Use your albuterol inhaler 4 puffs every 4 hours for the next 2 days for shortness of breath. Clinical Impressions Clinical Impression: Acute exacerbation of chronic obstructive pulmonary disease Print Language Print Language: Yoruba Discharge ED Provider: Andressa Cole General Adult HPI General Chief complaint: Shortness of Breath/Dyspnea Stated complaint: soa, cough Time Seen by Provider: 05/24/25 11:05 History of Present Illness HPI narrative: Patient is a 54-year-old with past medical history of CHF COPD smoker former alcoholic with residual cirrhosis presents to the emergency department for shortness of breath. Patient has had a cough with productive sputum for the last 3 days. No fever or chills. Increased shortness of breath with exertion. Patient has oxygen that he wears as needed at home. Took an albuterol inhaler treatment this morning without improvement of symptoms. No chest pain nausea vomiting Related Data Previous Rx's ?Medication ?Instructions ?Recorded apixaban 5 mg tablet (Eliquis) 5 mg PO BID 30 days #60 tabs 01/16/25 atorvastatin 40 mg tablet 40 mg PO HS 30 days #30 tabs 01/16/25 empagliflozin 10 mg tablet 10 mg PO DAILY 30 days #30 tabs 01/16/25 (Jardiance) folic acid 1 mg tablet 1 mg PO DAILY 30 days #30 ta bs 01/16/25 multivitamin with folic acid 400 1 tab PO 1700 #30 tab s 01/16/25 mcg tablet (Tab-A-Nicole) metoprolol tartrate 100 mg tablet 100 mg PO BID 30 day s #60 tabs 01/24/25 albuterol sulfate 90 mcg/actuation 2 inh inhalation QI D PRN shortness 02/21/25 aerosol inhaler (Ventolin HFA) of breath or wheezing 9 0 days #8.5 grams aspirin 81 mg tablet,delayed 81 mg PO DAILY 30 days #3 0 tabs 02/21/25 release umeclidinium 62.5 mcg-vilanterol 1 inh inhalation [place] Y 90 days 02/21/25 25 mcg/actuation powdr for #180 ea inhalation (Anoro Ellipta) amiodarone 200 mg tablet 200 mg PO DAILY 30 days #30 tabs 03/22/25 spironolactone 25 mg tablet 25 mg PO DAILY 30 days #30 tabs 03/22/25 torsemide 20 mg tablet 40 mg (2 x 20 mg) PO BID 90 days 03/22/25 #360 tabs melatonin 5 mg tablet 5 mg PO HS PRN sleep #90 tab s 05/22/25 sacubitril 24 mg-valsartan 26 mg 1 tab PO BID 30 days #60 tabs 05/22/25 tablet (Entresto) levofloxacin 750 mg tablet 750 mg PO DAILY 5 days #5 t abs 05/24/25 prednisone 50 mg tablet 50 mg PO DAILY 5 days #5 tab s 05/24/25 Allergies Allergy/AdvReac Type Severity Reaction Status Date / Time No Known Allergies Allergy Verified 05/24/25 10:52 [facility] Disclaimer: The information contained in this section may have been updated after the patient was seen, as this information can be updated by other users. Medical History Hyperlipidemia CAD in [place] artery HFrEF (heart failure with reduced ejection fraction) H/O echocardiogram Paroxysmal atrial flutter Paroxysmal atrial fibrillation Non-STEMI (non-ST elevated myocardial infarction) Cardiomyopathy Angina pectoris Acute HFrEF (heart failure with reduced ejection fraction) Mediastinal lymphadenopathy Hilar lymphadenopathy Smoking greater than 30 pack years Surgical History History of cardiac cath History of hand surgery Family History Other Family history of COPD (chronic obstructive pulmonary disease) Family history of cancer Social History Smoking Status: Current every day smoker alcohol intake: former substance use type: denies use current occupational status: unemployed and disabled Travel in the last 8 weeks?: None caffeine: No Have you lived/traveled outside [place] in past 30 days?: No Contact w/someone who lives/traveled outside [place] past 30 days?: No Exposure to someone with infectious disease in past 14 days?: No Do you have a fever (greater than 100.4 F or 38 C)?: No Have you tested positive for COVID-19?: No Exposed to someone with COVID-19 in past 14 days?: No Do you have a sore throat?: No Do you have a cough?: No Do you have any weakness?: No Do you have any diarrhea?: No Are you experiencing any unusual bleeding?: No Do you have any muscle aches/pain?: No Do you have any abdominal pain?: No Are you experiencing loss of taste or smell?: No Other Medical History Have you received the Flu Vaccine for this season: No Have you received the Pneumonia Vaccine: No ROS Obtained: Yes All systems reviewed & no additional complaints except as documented Physical Exam General General appearance: alert and in no apparent distress ENT ENT exam: Present mucous membranes dry Chest Chest inspection: Present other (Barrel chest) Respiratory Respiratory exam: Present wheezes Cardiovascular Cardiovascular exam: Present regular rate and normal rhythm Abdominal Exam Abdominal exam: Present soft; Absent distention or tenderness Back Exam Back exam: Present normal inspection Neurological Exam Neurological exam: Present alert and oriented X3 Medical Decision Making Medical Records Screening: Per USPSTF and CDC recommendations, given the prevalence of disease in our region, it is our hospital?s policy to screen for HIV and viral Hepatitis for all patients aged 18 and over and those with ongoing risk factors. Jonas Inquiry Pt receiving controlled substance: No Vital Signs: 05/24/25 10:30 05/24/25 11:00 05/24/25 11:31 Temperature 98.1 F Temperature Source Oral Pulse Rate 62 61 Pulse Rate [Left Radial] 64 Respiratory Rate 20 15 12 Blood Pressure 120/73 106/63 L Blood Pressure [Right Arm] 166/96 H Blood Pressure Mean [Right Arm] 119 02 Sat by Pulse Oximetry 96 94 L 98 Oxygen Delivery Method Room Air 05/24/25 13:03 05/24/25 13:06 Temperature 98.1 F Temperature Source Pulse Rate 75 Pulse Rate [Left Radial] Respiratory Rate 20 Blood Pressure 121/65 Blood Pressure [Right Arm] Blood Pressure Mean [Right Arm] 02 Sat by Pulse Oximetry 96 Oxygen Delivery Method Room Air Room Air Lab Data Lab Results 05/24/25 10:30: WBC 11.2 H, RBC 4.35 L, Hgb 14.3, Hct 40.6 L, MCV 93.3, MCH 32.9 H, MCHC 35.2, RDW 13.9, Plt Count 194, MPV 11.3 H, Neut % (Auto) 63.9, Lymph % (Auto) 23.8, Thayer % (Auto) 8.4, Eos % (Auto) 3.1, Baso % (Auto) 0.4, Neut # (Auto) 7.1, Lymph # (Auto) 2.7, Thayer # (Auto) 0.9, Eos # (Auto) 0.4, Baso # (Auto) 0.1, D-Dimer 0.30, Sodium 130 L, Potassium 4.0, Chloride 92 L, Carbon Dioxide 30, Anion Gap 12.0, BUN 13, Creatinine 0.70, Estimated Creat Clear 127, Estimated GFR 118, Est GFR ( Amer) 143, Glucose 128 H, Calcium 9.4, Magnesium 1.6, Total Bilirubin 1.3, AST 31, ALT 22, Alkaline Phosphatase 78, Troponin I < 0.01, NT-Pro-B Natriuret Pep 748 H, Total Protein 8.1, Albumin 4.6, Globulin 3.5 H, Albumin/Globulin Ratio 1.3 05/24/25 10:47: SARS-CoV-2 (PCR) Not detected, Influenza A Untype (PCR) Not detected, Influenza Type B (PCR) Not detected 05/24/25 10:30 05/24/25 10:30 Orders (Tests/Meds): ED MEDICATIONS Discontinued Medications Generic Name Dose Route Start Last Admin Trade Name Freq PRN Reason Stop Dose Admin Albuterol/Ipratropium 9 ml 05/24/25 11:09 05/24/25 11:26 Ipratropium/Albuterol 3 Ml Neb IH 05/24/25 11:10 9 ml ONCE ONE Administration Methylprednisolone Sodium Succinate 125 mg 05/24/25 11:09 05/24/25 11:26 Methylprednisolone Sod Succ 125mg Vial IV 05/24/25 11:10 125 mg ONCE ONE Administration ORDERS Category Date Time Status XR chest portable Stat Exams 05/24/25 10:47 Completed BNP [NT Pro Brain Natriuretic Pep.] Stat Lab 05/24/25 10:30 Completed Complete Blood Count Auto Diff Stat Lab 05/24/25 10:30 Completed Comprehensive Metabolic Panel Stat Lab 05/24/25 10:30 Completed D-Dimer Stat Lab 05/24/25 10:30 Completed Magnesium Routine Lab 05/24/25 10:30 Completed Rapid PCR Covid and Flu A/B Stat Lab 05/24/25 10:47 Completed Troponin I Stat Lab 05/24/25 10:30 Completed ECG Request Stat Y 05/24/25 11:09 Ordered HEART Score History (anamnesis): Slightly suspicious ECG: Non-specific disturbance Age: 45-65 years Risk factors: Atherosclerosis history Troponin: </= normal limit HEART Score: 4 Medical Decision Narrative: In summary, this 54-year-old presents to the emergency department today with shortness of breath. On initial evaluation patient is saturating 90% on room air, hemodynamically stable afebrile. Differential diagnosis includes but is not limited to COPD exacerbation heart failure exacerbation pneumonia ACS PE. Based on these concerns, I ordered CBC CMP troponin EKG D-dimer chest x-ray. ECG personally interpreted demonstrates no ST elevation ST depression or T wave inversions concerning for acute Patient received methylprednisolone and 3 DuoNebs for treatment. Labs personally reviewed demonstrate no elevation in troponin, mild elevation in BNP D-dimer negative XR personally interpreted demonstrates no interstitial opacities or interstitial edema on chest x-ray On reassessment patient has significant proven of symptoms and improvement of wheezing on exam. Symptoms are most consistent with a COPD exacerbation. Recommended outpatient Levaquin and prednisone with as needed albuterol. Patient saturating greater than 88% on room air and appropriate for discharge at this time. Critical Care Critical Care Time Critical Care Time: No
[2025-05-24 11:12] LABS: Troponin I < 0.01 ng/ml (0.00-0.034)
[2025-05-24] MEDS: IPRATROPIUM/ALBUTEROL 3 ML NEB 9 ML IH (11:26)
[2025-05-24] MEDS: METHYLPREDNISOLONE SOD SUCC 125MG VIAL 125 MG IV (11:26)
[2025-05-24 11:29] LABS: NT Pro Brain Natriuretic Pep. 748 pg/mL (0-125)
[2025-05-24 11:31] VITALS: BP 106/63; PULSE 61; RESP 12; O2SAT 98
[2025-05-24 12:02] LABS: Magnesium 1.6 mg/dl (1.6-2.3)
[2025-05-24 13:03] VITALS: O2SAT 96
[2025-05-24 13:06] VITALS: BP 121/65; PULSE 75; RESP 20; TEMP 36.7; O2SAT 98
== END 2025-05-24 13:07 | disposition home or self-care (01) ==
PROVIDERS: Emergency Provider Student in an Organized Health Care Education/Training Program; PCP Emergency Medicine
DX: J44.1 Chronic obstructive pulmonary disease with (acute) exacerbation (principal); E78.5 Hyperlipidemia, unspecified; F17.210 Nicotine dependence, cigarettes, uncomplicated
CPT/HCPCS: 71045; 80053; 83735; 83880; 84484; 85025; 85378; 87636; 93005; 96374; 99284; 99285; J2919

== ENCOUNTER 2025-08-07 10:06 | Outpatient (CLI) | payer OTHER, SELFPAY ==
[2025-08-07 10:26] LABS: Hematocrit 41.2 % (42.0-52.0); Hemoglobin 14.8 g/dL (14.1-18.0); Immature Granulocytes % 0.3 %; Mean Corpuscular HGB Conc 35.9 g/dL (31.8-35.4); Mean Corpuscular Hemoglobin 33.9 pg (27.0-31.2); Mean Corpuscular Volume 94.5 fl (80-94); Nucleated Red Blood Cells % 0 %; Platelet Count 160 K/mm3 (142-424); Red Blood Count 4.36 M/mm3 (4.60-6.20); Red Cell Distribution Width-SD 44.5 fL; White Blood Count 6.6 K/mm3 (4.8-10.8)
[2025-08-07 10:30] LABS: Ammonia < 9 umol/L (9-30)
[2025-08-07 10:38] LABS: INR 0.98 (0.9-1.1); Prothrombin Time 10.9 seconds (10.1-12.5)
[2025-08-07 11:48] LABS: Alanine Aminotransferase 41 U/L (12-78); Albumin Level 4.6 g/dl (3.5-5.0); Albumin/Globulin Ratio 1.8 (1.1-1.8); Alkaline Phosphatase 64 U/L (38-126); Anion Gap 9.3 mEq/L (5-15); Aspartate Amino Transferase 42 U/L (17-59); Bilirubin,Total 0.6 mg/dl (0.2-1.3); Blood Urea Nitrogen 6 mg/dl (9-20); Calcium 9.6 mg/dl (8.4-10.2); Carbon Dioxide 26 mmol/L (22.0-30.0); Chloride 95 mmol/L (98-107); Creatinine,Serum 0.50 mg/dl (0.66-1.25); Estimated Glomerular Filt Rate 175 ml/min (>60); GFR (African American) 211 ML/MIN (>60); Globulin 2.6 g/dL (1.3-3.2); Glucose 155 mg/dl (74-100); Iron 170 ug/dL (49-181); Potassium 4.3 mmoL/L (3.5-5.1); Sodium 126 mmol/L (136-145); Total Protein,Serum 7.2 g/dl (6.3-8.2)
[2025-08-07 11:58] LABS: Total Iron Binding Capacity 329 ug/dL (261-462)
[2025-08-07 12:23] LABS: Ferritin 528 ng/ml (17.9-464)
== END 2025-08-07 23:59 | disposition home or self-care (01) ==
LOC: LAB 10:07
PROVIDERS: PCP Emergency Medicine; Visit Provider Nurse Practitioner Family
DX: K70.30 Alcoholic cirrhosis of liver without ascites (principal)
CPT/HCPCS: 36415; 80053; 82105; 82140; 82728; 83540; 83550; 85025; 85610

== ENCOUNTER 2025-08-17 09:19 | Outpatient (CLI) | payer OTHER, SELFPAY ==
--- NOTE | 2025-08-17 09:30 | US_ITS ---
FINAL REPORT TECHNIQUE: Sonographic images of the right upper quadrant were obtained. CLINICAL HISTORY: Cirrhosis follow-up FINDINGS: PANCREAS: Unremarkable. LIVER: There is fatty infiltration of the liver with fatty sparing near the gallbladder. No focal hepatic lesion. The portal vein is patent with normal directional flow. GALLBLADDER: No gallstones. No gallbladder wall thickening or pericholecystic fluid. COMMON DUCT: 5 mm. Normal for age. RIGHT KIDNEY: The right kidney measures 5 cm. There is no hydronephrosis, mass, or stone. FREE FLUID: None. IMPRESSION: Fatty liver. Reviewed, Interpreted and Dictated by Norma Villa MD Transcribed by Kami Snow Authenticated and [facility]
== END 2025-08-17 23:59 | disposition home or self-care (01) ==
LOC: RAD 09:20
PROVIDERS: PCP Emergency Medicine; Visit Provider Nurse Practitioner Family
DX: K70.30 Alcoholic cirrhosis of liver without ascites (principal)
CPT/HCPCS: 76705